=== PATIENT | female | born 1960 | race Caucasian/White ===

== ENCOUNTER 2017-06-17 22:49 | Observation (INO) ==
[2017-06-18] MEDS ORDERED: Ipratropium/Albuterol Neb 3 ML IH ONE ×2 (00:51→01:24)
[2017-06-18 01:08] LABS: Basophils % 0.5 %; Eosinophils # 0.2 K/mcL (0.0-0.6); Eosinophils % 3.3 %; Hematocrit 36.1 % (35.3-44.9); Hemoglobin 12.2 g/dL (11.5-15.4); Immature Granulocytes % 0.2 % (0-4); Lymphocytes # 1.4 K/mcL (0.6-4.6); Lymphocytes % 25.7 %; Mean Corpuscular HGB Conc 33.8 g/dL (31.6-35.5); Mean Corpuscular Hemoglobin 30.4 pg (28.0-33.3); Mean Platelet Volume 10.5 fL (9.4-12.4); Monocytes # 0.5 K/mcL (0.0-1.3); Monocytes % 8.2 %; Neutrophils # 3.4 K/mcL (1.6-8.9); Platelet Count 197 K/mcL (140-400); Red Blood Count 4.01 M/mcL (3.82-4.97); Segmented Neutrophils % 62.1 %
[2017-06-18 01:22] LABS: BUN/Creatinine Ratio 8 (6-26); Blood Urea Nitrogen 6 mg/dL (6-20); Calcium 8.8 mg/dL (8.6-10.3); Carbon Dioxide 25 mEq/L (23-29); Chloride 106 mEq/L (98-107); Glucose 133 mg/dL (70-105); Osmolality,Calculated 286 (280-300); Potassium 3.3 mEq/L (3.5-5.1); Sodium 138 mEq/L (136-145); eGFR For African Americans > 60 (> 60); eGFR For Non-African Americans > 60 (> 60)
[2017-06-18] MEDS ORDERED: methylPREDNISolone 125 MG/2 ML VIAL IVP ONE (01:24)
[2017-06-18] MEDS ORDERED: Aspirin 81 MG TAB.CHEW PO STA (01:24)
--- NOTE | 2017-06-18 01:38 | Emergency Department Note ---
Disposition Clinical Impression: Cough, Acute exacerbation of chronic obstructive airways disease, Bronchitis Disposition: Admitted As Inpatient Condition: Fair Instructions: Chronic Obstructive Pulmonary Disease (ED) Reasons to Return/Additional Instructions: Please follow up with your primary care provider at the next available appointment. I have provided information to the [facility]. Please return to the emergency department if you have any worsening of your symptoms including worsening of her cough, shortness of breath, difficulty breathing, changes in mentation, fever or any other symptoms that may be concerning to you. Please take all medications as prescribed Prescriptions: Albuterol Sulfate [Albuterol Inhaler] 1 puff IH Q4HR PRN #1 inhaler PRN Reason: Shortness Of Breath Doxycycline 100 mg PO BID #14 capsule PredniSONE [Deltasone] 60 mg PO DAILY #15 tablet Referrals: Westley Ayers MD [Primary Care Provider] - [facility] [Outside] Forms: ED Satisfaction Letter Time of Disposition: 03:03 General Adult HPI - General Chief complaint: ED Upper Respiratory Infection Stated complaint: "COPD/Bronchitis" Time Seen by Provider: 06/18/17 00:59 Source: patient Limitations: no limitations Nursing Notes Reviewed: Yes Vital Signs Reviewed: Yes - History of Present Illness HPI Narrative: Patient is a 57-year-old female that presents to the emergency department for cough and shortness of breath. She states that this is been ongoing for the past 3 weeks. Patient denies any nausea, vomiting or diarrhea. Patient states that she has had chronic chest pressure for years and that it is nonradiating and is not acute. She states that she has a history of COPD and follows with Dr. Carias the scrub technician here at [facility]. She states that she has appointment with Dr. Carias at the end of the month. Patient states that her shortness of breath is worse with exertion. Nothing seems to make her symptoms any better. Pain Scale: 10 - Related Data Home Medications Medication Instructions Recorded Confirmed Albuterol Sulfate [Albuterol 2 puff IH Q4HR PRN 03/09/15 04/03/16 Inhaler] Budesonide/Formoterol 160/4.5 2 puff IH BID 03/09/15 04/03/16 [Symbicort] Cholecalciferol (Vitamin D3) 400 unit PO DAILY 03/09/15 04/03/16 [Vitamin D3] Gabapentin [Neurontin] 600 mg PO BID 03/09/15 04/03/16 Levothyroxine [Synthroid] 75 mcg PO QAM 03/09/15 04/03/16 Roflumilast [Daliresp] 500 mcg PO DAILY 03/09/15 04/03/16 Sertraline [Zoloft] 200 mg PO QAM 03/09/15 04/03/16 ARIPiprazole [Abilify] 10 mg PO DAILY 03/13/15 04/03/16 Fluticasone Propionate Nasal 50 mcg NS DAILY 03/13/15 04/03/16 [Flonase] [place] Oil/[place]-3 Fatty Acids 1,000 mg PO DAILY 03/13/15 04/03/16 [Fish Oil 500 mg Softgel] Tizanidine [Zanaflex] 4 mg PO Q8H 03/13/15 04/03/16 clonazePAM [Klonopin] 2 mg PO BID #0 03/14/15 04/03/16 Loratadine [Allergy Relief] 10 mg PO DAILY 10/03/15 04/03/16 Quetiapine Fumarate [Seroquel] 300 mg PO HS 10/03/15 04/03/16 Umeclidinium [place] [Incruse 1 puff IH DAILY 04/03/16 04/03/16 Ellipta] Previous Rx's Medication Instructions Recorded Ipratropium/Albuterol Neb [Duoneb] 3 ml IH [id number] PRN #60 inhsol 04/10/16 Omeprazole [PriLOSEC] 20 mg PO DAILY@0630 #30 capsule. 04/10/16 Ibuprofen [Motrin] 600 mg PO Q6-8H PRN #30 tab 06/19/16 levoFLOXacin [Levaquin] 500 mg PO DAILY #10 tablet 01/20/17 predniSONE [PredniSONE] 0 mg PO DAILY #15 tablet 01/20/17 Amoxicillin 875 mg PO BID #28 tablet 02/05/17 Montelukast [Singulair] 10 mg PO HS #30 tablet 02/05/17 predniSONE [PredniSONE] 0 mg PO DAILY #15 tablet 02/05/17 Albuterol Sulfate [Albuterol 1 puff IH Q4HR PRN #1 inhaler 06/18/17 Inhaler] Doxycycline 100 mg PO BID #14 capsule 06/18/17 PredniSONE [Deltasone] 60 mg PO DAILY #15 tablet 06/18/17 Allergies Allergy/AdvReac Type Severity Reaction Status Date / Time sulfamethoxazole Allergy Hives Verified 06/17/17 22:58 [From Bactrim] trimethoprim [From Bactrim] Allergy Hives Verified 06/17/17 22:58 All systems ED: reviewed and negative except as stated. Cardiovascular: Reports: chest pain (Pressure), dyspnea on exertion Respiratory: Reports: cough, dyspnea Past Medical History - Past Medical History Medical history: Reports: COPD, thyroid disease Surgical history: Reports: non-contributory, other Psychiatric history: Reports: anxiety, depression, PTSD LABEL FOLDER history: Reports: no LABEL FOLDER history - Social History Smoking Status: Current every day smoker Smokeless Tobacco Status: No Alcohol use: Reports: none Drug use: Reports: none Physical Exam - General Limitations: no limitations General appearance: alert, in no apparent distress - Head Head exam: atraumatic, normocephalic - Eye Eye exam: Present: normal appearance, EOMI - Neck Neck exam: Present: normal inspection, full ROM, trachea midline - Respiratory Respiratory exam: Present: normal lung sounds bilaterally, other (decreased breath sounds bilterally). Absent: respiratory distress, wheezes - Cardiovascular Cardiovascular exam: Present: regular rate, normal rhythm, normal heart sounds, +S1, +S2 - Abdominal Exam Abdominal exam: Present: soft, Non-Tender, normal bowel sounds - Neurological Exam Neurological exam: Present: alert, oriented X3 - Psychiatric Psychiatric exam: Present: normal affect, normal mood - Skin Skin exam: Present: warm, dry, intact Course Vital Signs Temperature 98.4 F 06/17/17 22:58 Pulse Rate 92 06/17/17 22:58 Respiratory Rate 18 06/17/17 22:58 Blood Pressure 92/54 06/17/17 22:58 O2 Sat by Pulse Oximetry 98 06/17/17 22:58 Temperature 98.4 F 06/17/17 22:58 Pulse Rate 102 06/18/17 03:11 Respiratory Rate 18 06/18/17 03:11 Blood Pressure 118/60 06/18/17 03:11 O2 Sat by Pulse Oximetry 90 06/18/17 03:14 Oxygen Delivery Oxygen Delivery Room Air Medical Decision Making - MDM Narrative Medical decision making narrative: Due to the patient having a history of COPD and having a cough and shortness of breath the patient will have a CBC, BMP, BNP, troponin, chest x-ray, EKG. The patient will be given breathing treatment and a dose of steroids. EKG showed a sinus rhythm. The patient's laboratory testing is unremarkable. Chest x-ray showed no acute cardiopulmonary process. Patient states that she is feeling well and is comfortable with going home. The patient will be given 5 days of steroids and antibiotic for at home. This will be treated as a COPD exacerbation. - Medical Records Medical records reviewed: Yes I reviewed the patient's medical records. - Lab Data Lab results reviewed: Yes I reviewed the patient's lab results. Result diagrams: 06/18/17 00:59 06/18/17 00:59 Lab Results 06/18/17 06/18/17 06/18/17 Range/Units 00:59 00:59 00:59 WBC 5.5 (4.3-11.1) K/mcL RBC 4.01 (3.82-4.97) M/mcL Hgb 12.2 (11.5-15.4) g/dL Hct 36.1 (35.3-44.9) % MCV 90.0 (83.0-100.0) fL MCH 30.4 (28.0-33.3) pg MCHC 33.8 (31.6-35.5) g/dL RDW 12.0 (11.5-14.5) % Plt Count 197 (140-400) K/mcL MPV 10.5 (9.4-12.4) fL Immature Gran % 0.2 (0-4) % Seg Neutrophils % 62.1 % Lymphocytes % 25.7 % Monocytes % 8.2 % Eosinophils % 3.3 % Basophils % 0.5 % Neutrophils # 3.4 (1.6-8.9) K/mcL Lymphocytes # 1.4 (0.6-4.6) K/mcL Monocytes # 0.5 (0.0-1.3) K/mcL Eosinophils # 0.2 (0.0-0.6) K/mcL Basophils # 0.0 (0.0-0.2) K/mcL Sodium 138 (136-145) mEq/L Potassium 3.3 L (3.5-5.1) mEq/L Chloride 106 (98-107) mEq/L Carbon Dioxide 25 (23-29) mEq/L BUN 6 (6-20) mg/dL Creatinine 0.72 (0.60-1.20) mg/dL Est GFR ( Amer) > 60 (> 60) Est GFR (Non-Af Amer) > 60 (> 60) BUN/Creatinine Ratio 8 (6-26) Glucose 133 H (70-105) mg/dL Calculated Osmolality 286 (280-300) Calcium 8.8 (8.6-10.3) mg/dL Troponin I < 0.03 (< 0.04) ng/mL B-Natriuretic Peptide (Less than 100) pg/mL 06/18/17 Range/Units 00:59 WBC (4.3-11.1) K/mcL RBC (3.82-4.97) M/mcL Hgb (11.5-15.4) g/dL Hct (35.3-44.9) % MCV (83.0-100.0) fL MCH (28.0-33.3) pg MCHC (31.6-35.5) g/dL RDW (11.5-14.5) % Plt Count (140-400) K/mcL MPV (9.4-12.4) fL Immature Gran % (0-4) % Seg Neutrophils % % Lymphocytes % % Monocytes % % Eosinophils % % Basophils % % Neutrophils # (1.6-8.9) K/mcL Lymphocytes # (0.6-4.6) K/mcL Monocytes # (0.0-1.3) K/mcL Eosinophils # (0.0-0.6) K/mcL Basophils # (0.0-0.2) K/mcL Sodium (136-145) mEq/L Potassium (3.5-5.1) mEq/L Chloride (98-107) mEq/L Carbon Dioxide (23-29) mEq/L BUN (6-20) mg/dL Creatinine (0.60-1.20) mg/dL Est GFR ( Amer) (> 60) Est GFR (Non-Af Amer) (> 60) BUN/Creatinine Ratio (6-26) Glucose (70-105) mg/dL Calculated Osmolality (280-300) Calcium (8.6-10.3) mg/dL Troponin I (< 0.04) ng/mL B-Natriuretic Peptide 8 (Less than 100) pg/mL - Radiology Data Radiology results reviewed: Yes I reviewed the patient's radiology results. Chest X-Ray 06/17/17 23:00 IMPRESSION: 1. No acute cardiopulmonary abnormality. 2. Emphysema with findings of chronic obstructive physiology. D/ / Berto Chu / Berto Chu Interpreting Provider: Berto Chu - EKG Data EKG #1 EKG attestation: Yes I reviewed and interpreted this EKG. EKG results narrative: EKG shows sinus rhythm at a rate of 87 bpm, MT interval of 122, QRS is 11, QTc of 392 with a normal axis. Attestation Statement - Attestation Attestation: I, Brayan Fernandez DO, examined this patient [id number] and my medical decision-making was reviewed with Dr. Fredy Suresh, Resident Physician. I agree with the documented findings, disposition and treatment plan as described except to the extent set forth below. Please see my progress notes for details. 57-year-old female presents to emergency room complaint of cough and congestion. She has a history of COPD but does not require oxygen or breathing treatments at home. Patient typically manages with steroids intermittently as well as an inhaler. Patient says that she has had a cough for the last several days. Currently denying chest pain shortness of breath headache vision changes nausea vomiting or diarrhea. Denies any fevers or chills. Patient denies any trauma or injury. Patient has what she describes as a productive cough and sore throat. Physical exam is otherwise unremarkable. Head is atraumatic oral mucosa is patent trachea is midline there is no stridor no trismus. She has no cervical lymphadenopathy. She moves her neck with full range of motion without deficit issue. Lungs are tight on presentation but no wheezing. No consolidation noted. No crackles. Heart is regular abdomen is soft nontender nondistended with no guarding or rigidity. No peritoneal exams. Patient moves all portions Deficit. She is not showing any acute signs or conversational dyspnea. Her pulse ox is been stable on oxygen on presentation but after breathing treatments her pulse ox was 94-98% range. She is talking in full sentences without any issue. Patient was provided with steroids here. Chest x-ray is unremarkable for infection or pneumonia. Labs including CBC chemistry and troponin are stable. Patient has no acute signs of myocardial infarction or ischemia. Discussion was had with the patient at the bedside reviewing the presentation symptoms and her concern for her medical care. She understands this and appreciates her concerning this time. She is in fact requesting to go home. There is benefits and alternatives to this were discussed at length. She had decision-making process was utilized and after the lengthy discussion patient still continued and elected to be discharged home. Maximization of the patient's medical care will be completed. Patient attempted to ambulate around the emergency room at short of breath and her heart rate 1 out. Patient was short of breath at that time. Her symptoms appear to be consistent with a COPD exacerbation. Clinically she does not have any acute signs of infectious etiology. She has nonproductive intermittent cough with no discoloration to the mucus at this time. Her lungs are otherwise stable on chest x-ray. Escutcheon was had again at the bedside and the patient elected to be admitted to the hospital for further evaluation. Patient will be admitted at this time for COPD exacerbation symptomatic control. Patient is low risk on presentation for pulmonary emboli. Her wells score is only one secondary to the tachycardia. Patient will be admitted at this time for definitive management. Detailed documentation of his physical exam, medical intervention, medical decision-making and disposition will be documented resident physician's note. Hospitalist paged at this time for Admission. 0500 Patient admitted to the hospital suicide without any issue. Stabilization of her condition will be completed at this time.
[2017-06-18] MEDS ORDERED: Naloxone 0.4 MG/ML INJ IVP PRN (08:33)
[2017-06-18] MEDS ORDERED: Mag Hydrox/Al Hydrox/Simeth 30 ML UDC PO PRN (08:33)
[2017-06-18] MEDS ORDERED: Acetaminophen 325 MG TABLET PO PRN (08:33)
[2017-06-18] MEDS ORDERED: Ipratropium/Albuterol Neb 3 ML IH PRN (08:40)
[2017-06-18] MEDS ORDERED: Cholecalciferol (D-3) 1,000 UNIT TABLET PO SCH (09:00)
[2017-06-18] MEDS ORDERED: Gabapentin 300 MG CAPSULE PO SCH (09:00)
[2017-06-18] MEDS ORDERED: clonazePAM 1 MG TABLET PO SCH (09:00)
[2017-06-18] MEDS ORDERED: Loratadine 10 MG TABLET PO SCH (09:00)
[2017-06-18] MEDS ORDERED: (Roflumilast [Daliresp] 500 MCG) PO SCH (09:00)
[2017-06-18] MEDS ORDERED: ARIPiprazole 10 MG TABLET PO SCH (09:00)
[2017-06-18 12:03] VITALS: BP 105/61
--- NOTE | 2017-06-18 12:19 | Electrocardiograph Report ---
[place] [id number] Test Date: 2017-06-18 Pat Name: Sharda Ayala Department: 104 Room: [facility] Gender: F [employer] [address] [employer] Security: SUSY : 1960 Requested By: Brayan Fernandez Order Number: [id number] Reading MD: Peter Choi DO Measurements Intervals [place] Rate: 87 P: 55 IL: 122 QRS: 32 QRSD: 101 T: 65 QT: 347 QTc: 392 Interpretive Statements SINUS RHYTHM Electronically Signed On 06-18-2017 12:17:28 EST by Peter Choi DO
--- NOTE | 2017-06-18 14:20 | Internal Med History&Physical ---
Date of Encounter: 06/18/17 Time of Encounter: 09:00 Assessment and Plan (1) Acute exacerbation of chronic obstructive airways disease Current visit: Yes Status: Acute Patient has already been given IV Solu-Medrol last night with improvement of her symptoms. I will continue to observe her on the floor on telemetry maintaining a pulse ox of greater than 92% she does have home oxygen and my aim is to bring her down to the 2 L of requirement. When she does go home she will benefit from a short course of oral prednisone. Right now I do not feel the need to start her on oral antibiotics. (2) Tobacco abuse Current visit: Yes Status: Chronic Smoking cessation has been advised and education provided Internal Medicine - H&P: HPI Chief complaint: Shortness of breath Admitted From: Home Plans for Post Hospital Care: Home History of present illness: Ms. Ayala is a 57 year old female who given to the hospital with government shortness of breath which has been ongoing for the last 2 weeks but has been particularly worrisome for the last couple of days. She denies any fever or chills and does see commercial sales representative here at [facility]. She is usually on home oxygen at 2 L. In the ER the patient did receive IV Solu-Medrol in addition to breathing treatments and did feel slightly better. She did however feel that an attempted ambulation she would feel more pointed than usual and hence was kept for observation. She denies any fever or chills, shakes, sick contacts, nausea, vomiting Past Med Surg Social Fam HX - Past Medical History Medical history: COPD, osteoporosis, thyroid disease Psychiatric history: anxiety, depression, PTSD - Past Surgical History Surgical History: non-contributory, other - Social History Smoking Status: Current every day smoker Packs per day: 0.5 Smokeless Tobacco Status: No Alcohol use: none Drug use: none - Family History Mother Adopted: No Family Member Ethnicity: Non- Living Status: Still Living Hx Family Cardiac Disorders: Yes (HTN, CAD,PCI) Hx Family Respiratory Disorders: No Hx Family Cancer: No Hx Family GI Disorders: No Hx Family Endocrine Disorder: No Hx Family Neuromuscular Disorders: No Hx Family Neurologic Disorders: No Hx Family HEENT Disorders: Yes (Cataracts) Hx Family Autoimmune Disorders: No Internal Medicine - H&P: Meds Albuterol Sulfate [Albuterol Inhaler] 2 puff IH Q4HR PRN 03/09/15 [History] Budesonide/Formoterol 160/4.5 [Symbicort] 2 puff IH BID 03/09/15 [History] Cholecalciferol (Vitamin D3) [Vitamin D3] 400 unit PO DAILY 03/09/15 [History] Gabapentin [Neurontin] 600 mg PO BID 03/09/15 [History] Levothyroxine [Synthroid] 88 mcg PO QAM 03/09/15 [History] Roflumilast [Daliresp] 500 mcg PO DAILY 03/09/15 [History] Sertraline [Zoloft] 200 mg PO QAM 03/09/15 [History] ARIPiprazole [Abilify] 10 mg PO DAILY 03/13/15 [History] Fluticasone Propionate Nasal [Flonase] 50 mcg NS DAILY 03/13/15 [History] Tizanidine [Zanaflex] 4 mg PO Q8H 03/13/15 [History] clonazePAM [Klonopin] 2 mg PO TID #0 03/14/15 [History] Loratadine [Allergy Relief] 10 mg PO DAILY 10/03/15 [History] Quetiapine Fumarate [Seroquel] 300 mg PO HS 10/03/15 [History] Umeclidinium [place] [Incruse Ellipta] 1 puff IH DAILY 04/03/16 [History] Ipratropium/Albuterol Neb [Duoneb] 3 ml IH [id number] PRN #60 inhsol 04/10/16 [Rx] Montelukast [Singulair] 10 mg PO HS #30 tablet 02/05/17 [Rx] Calcium Carbonate/Vitamin D3 [Calcium 600-Vit D3 400 Tablet] 2 tab PO DAILY 03/26 [History] 3 Allergy/AdvReac Type Severity Reaction Status Date / Time sulfamethoxazole Allergy Hives Verified 06/17/17 22:58 [From Bactrim] trimethoprim [From Bactrim] Allergy Hives Verified 06/17/17 22:58 All Systems PM: A 10-system review of systems was performed and is negative for pertinent findings except as documented above in the HPI. Review of systems: A complete review of systems is checked and is negative except as mentioned in the HPI - Constitutional Vitals: Temp Pulse Resp BP Pulse Ox 97.9 F 73 22 105/61 97 06/18/17 12:02 06/18/17 12:02 06/18/17 12:02 06/18/17 12:02 06/18/17 12:02 - Head Head exam: Present: atraumatic, normocephalic - Neck Neck exam general surgery: Present: supple, trachea midline. Absent: lymphadenopathy - Respiratory Additional comments: Scattered wheezing heard across both lung clement no accessory muscles of respiration being used at this time. Able to complete. Sentences - Cardiovascular Cardiovascular exam: Present: RRR, +S1, +S2. Absent: diastolic murmur, gallop, rubs, systolic murmur - GI/Abdominal GI/Abdominal exam: Present: normal bowel sounds, soft, no peritoneal signs. Absent: distended, tenderness - Neurological Exam Neurological exam: Present: CN II-XII intact, oriented X3, no focal deficits. Absent: pronater drift, facial droop, speech deficit Internal Med - H&P Results - Labs CBC & Chem 7: 06/18/17 00:59 06/18/17 00:59 - Diagnostic Studies Chest x-ray Status: image reviewed by me (No focal consolidation)
--- NOTE | 2017-06-18 15:02 | Discharge Summary ---
Date of Encounter: 06/18/17 Time of Encounter: 14:55 - Discharge Diagnosis (1) Acute exacerbation of chronic obstructive airways disease Priority: Primary Status: Acute (2) Tobacco abuse Priority: Secondary Status: Chronic - Discharge Medications Prescriptions: predniSONE [Prednisone] 50 mg PO DAILY #5 tablet Home Medications: Albuterol Sulfate [Albuterol Inhaler] 2 puff IH Q4HR PRN 03/09/15 [History] Budesonide/Formoterol 160/4.5 [Symbicort] 2 puff IH BID 03/09/15 [History] Cholecalciferol (Vitamin D3) [Vitamin D3] 400 unit PO DAILY 03/09/15 [History] Gabapentin [Neurontin] 600 mg PO BID 03/09/15 [History] Levothyroxine [Synthroid] 88 mcg PO QAM 03/09/15 [History] Roflumilast [Daliresp] 500 mcg PO DAILY 03/09/15 [History] Sertraline [Zoloft] 200 mg PO QAM 03/09/15 [History] ARIPiprazole [Abilify] 10 mg PO DAILY 03/13/15 [History] Fluticasone Propionate Nasal [Flonase] 50 mcg NS DAILY 03/13/15 [History] Tizanidine [Zanaflex] 4 mg PO Q8H 03/13/15 [History] clonazePAM [Klonopin] 2 mg PO TID #0 03/14/15 [History] Loratadine [Allergy Relief] 10 mg PO DAILY 10/03/15 [History] Quetiapine Fumarate [Seroquel] 300 mg PO HS 10/03/15 [History] Umeclidinium [place] [Incruse Ellipta] 1 puff IH DAILY 04/03/16 [History] Ipratropium/Albuterol Neb [Duoneb] 3 ml IH [id number] PRN #60 inhsol 04/10/16 [Rx] Montelukast [Singulair] 10 mg PO HS #30 tablet 02/05/17 [Rx] Calcium Carbonate/Vitamin D3 [Calcium 600-Vit D3 400 Tablet] 2 tab PO DAILY 03/26 [History] Docusate [Colace] 100 mg PO BID PRN capsule 06/18/17 [Rx] Ipratropium/Albuterol Neb [Duoneb] 3 ml IH [id number] PRN inhsol 06/18/17 [Rx] Loratadine [Claritin] 10 mg PO DAILY tablet 06/18/17 [Rx] Mag Hydrox/Al Hydrox/Simeth [Maalox] 15 ml PO Q6HR PRN udc 06/18/17 [Rx] predniSONE [Prednisone] 50 mg PO DAILY #5 tablet 06/18/17 [Rx] Allergies/Adverse Reactions: 3 Allergy/AdvReac Type Severity Reaction Status Date / Time sulfamethoxazole Allergy Hives Verified 06/17/17 22:58 [From Bactrim] trimethoprim [From Bactrim] Allergy Hives Verified 06/17/17 22:58 Date of admission: 06/18/17 05:28 Primary care physician: Westley Ayers MD - Patient Status Disposition: Home, Self-Care Condition: Good Functional capacity at discharge: independent ambulation Overall status at discharge: patient is back to baseline - Discharge Instructions - Diet and Activity Activity: wear oxygen at all times Diet: regular diet Interval History: Patient was placed in obs status in ED. She was gradually able to wean to 2 L NC maintaining good saturations . She wishes to go home due to social issues and i am comfortable with that. She will be provided a script for short course of steroids and has an appointment coming up w Dr Farfan. She has Home O2 already and I have instructed her to wear it at all times for next several days Hospital course: Ms. Ayala is a 57 year old female Time spent discussing smoking cessation with patient: more than 10 minutes - Time Spent with Patient Total time spent providing and/or coordinating discharge services: Greater than 30 minutes (40 min) - Constitutional Vitals: Temp Pulse Resp BP Pulse Ox 97.9 F 73 22 105/61 97 06/18/17 12:02 06/18/17 12:02 06/18/17 12:02 06/18/17 12:02 06/18/17 12:02 Exam: Mild wheezing bilaterally Does not appear uncomfortable- able to complete sentences Abdomen- S NT ND Neuro- non focal VSS
[2017-06-18] MEDS ORDERED: clonazePAM 0.5 MG TABLET PO SCH (15:45)
== END 2017-06-18 16:30 | disposition home or self-care (01) ==
LOC: 3BNU 22:49 → EMEROO 22:49 → SUATTDRO 06-18 05:28 → 3BNU 06-18 06:37
PROVIDERS: ADMIT Internal Medicine; ATTEND Internal Medicine

== ENCOUNTER 2018-06-10 10:32 | Inpatient (IN) ==
[2018-06-10] MEDS ORDERED: 0.9 % Sodium Chloride 1,000 ML IVC ONE ×2 (10:38→13:06)
[2018-06-10] MEDS ORDERED: Ipratropium/Albuterol Neb 3 ML IH ONE ×2 (10:39→14:01)
[2018-06-10] MEDS ORDERED: methylPREDNISolone 125 MG/2 ML VIAL IVP ONE (10:39)
--- NOTE | 2018-06-10 11:14 | Emergency Department Note ---
Disposition Clinical Impression: Acute exacerbation of chronic obstructive airways disease Pneumonia Qualifiers: Pneumonia type: due to unspecified organism Laterality: bilateral Lung location: lower lobe of lung Qualified Code(s): J18.1 - Lobar pneumonia, unspecified organism Disposition: Admitted As Inpatient General Adult HPI - General Chief complaint: ED Shortness of Breath/Dyspnea Stated complaint: MUKESH Time Seen by Provider: 06/10/18 10:33 Source: patient, EMS Limitations: no limitations Nursing Notes Reviewed: Yes Vital Signs Reviewed: Yes - History of Present Illness HPI Narrative: 58-year-old female with history of COPD presenting with productive cough as well as increased shortness of breath. She states this has been ongoing for the past 2 days. She utilizes 2 L of oxygen at home just at night but has increased this recently to 3 L. She otherwise states that she tries to get up and move around and feels very short of breath. She denies any chest pain. She is not currently on any antibiotics. She otherwise denies any nausea, vomiting, diarrhea, dysuria, hematuria, abdominal pain, back pain. Pain Scale: 8 - Related Data Home Medications Medication Instructions Recorded Confirmed Roflumilast [Daliresp] 500 mcg PO DAILY 03/09/15 06/10/18 clonazePAM [Klonopin] 2 mg PO TID #0 03/14/15 06/10/18 Umeclidinium [place] [Incruse 1 puff IH DAILY 04/03/16 06/10/18 Ellipta] Calcium Carbonate/Vitamin D3 2 tab PO DAILY 06/18/17 06/10/18 [Calcium 600-Vit D3 400 Tablet] Albuterol Sulfate [Albuterol 2 puff IH Q6HR PRN 06/10/18 06/10/18 Inhaler] Alendronate Sodium 70 mg PO MO 06/10/18 06/10/18 Aripiprazole [Abilify] 15 mg PO DAILY 06/10/18 06/10/18 Atorvastatin [Lipitor] 10 mg PO HS 06/10/18 06/10/18 Benztropine Mesylate 1 mg PO BID 06/10/18 06/10/18 Budesonide/Formoterol 160/4.5 2 puff IH BID 06/10/18 06/10/18 [Symbicort 160/4.5] Calcium Carbonate/Vitamin D3 2 tab PO DAILY 06/10/18 06/10/18 [Calcium 600 + Vit D Tablet] Ergocalciferol (VITAMIN D2) 400 unit PO DAILY 06/10/18 06/10/18 [Vitamin D] Gabapentin [Neurontin] 600 mg PO BID 06/10/18 06/10/18 Levothyroxine Sodium 88 mcg PO QAM 06/10/18 06/10/18 Mv-Mn/FA/Vit K/Lycop/Lut/Coq10 1 cap PO DAILY 06/10/18 06/10/18 [Daily Multivitamin Capsule] Previous Rx's Medication Instructions Recorded Ipratropium/Albuterol Neb [Duoneb] 3 ml IH [id number] PRN #60 inhsol 04/10/16 Docusate [Colace] 100 mg PO BID PRN capsule 06/18/17 Allergies Allergy/AdvReac Type Severity Reaction Status Date / Time sulfamethoxazole Allergy Hives Verified 06/10/18 10:37 [From Bactrim] trimethoprim [From Bactrim] Allergy Hives Verified 06/10/18 10:37 All systems ED: reviewed and negative except as stated. Review of Systems: As Per HPI Constitutional: Reports: weakness. Denies: fever, chills, weight change Eyes: Denies: eye pain, vision change Cardiovascular: Reports: dyspnea on exertion. Denies: chest pain, palpitations, orthopnea, edema, syncope Respiratory: Reports: cough, dyspnea, sputum production. Denies: wheezes, hemoptysis, stridor Gastrointestinal: Denies: abdominal pain, nausea, vomiting, diarrhea, constipation, hematemesis Genitourinary: Denies: urgency, dysuria Musculoskeletal: Denies: back pain, neck pain Integumentary: Denies: rash, abrasion Neurological: Reports: weakness. Denies: headache, numbness, paresthesias, confusion, abnormal gait Psychiatric: Denies: anxiety, depression Endocrine: Denies: fatigue Past Medical History - Past Medical History Attestation: Yes The following information was validated with the patient. Source: patient Medical history: Reports: COPD, thyroid disease Surgical history: Reports: other Psychiatric history: Reports: anxiety, depression, PTSD PATIENT ASSISTANT history: Reports: no PATIENT ASSISTANT history - Social History Smoking Status: Current every day smoker Smokeless Tobacco Status: No Alcohol use: Reports: none Drug use: Reports: none Physical Exam - General Limitations: no limitations General appearance: alert, in distress (tachypnic, speaks in very short sentences) - Head Head exam: atraumatic, normocephalic - Eye Eye exam: Present: normal appearance, PERRL, EOMI - ENT ENT exam: normal exam, normal oropharynx, mucous membranes moist - Neck Neck exam: Present: normal inspection, full ROM, trachea midline. Absent: tenderness - Chest Chest inspection: Present: normal inspection, symmetric chest wall rise. Absent: tenderness - Respiratory Respiratory exam: Present: respiratory distress (tachypnic), wheezes (throughout), accessory muscle use, prolonged expiratory phase. Absent: stridor - Cardiovascular Cardiovascular exam: Present: regular rate, normal rhythm, normal heart sounds - Abdominal Exam Abdominal exam: Present: soft, Non-Tender. Absent: guarding, rebound, rigidity - Extremities Exam Extremities exam: Present: normal inspection. Absent: pedal edema - Neurological Exam Neurological exam: Present: alert, oriented X3 - Psychiatric Psychiatric exam: Present: normal affect, normal mood - Skin Skin exam: Present: warm, dry, intact. Absent: cyanosis, diaphoresis, pallor Course Vital Signs Temperature 100.0 F H 06/10/18 10:38 Pulse Rate 111 06/10/18 10:38 Respiratory Rate 36 06/10/18 10:38 Blood Pressure 112/61 06/10/18 10:38 O2 Sat by Pulse Oximetry 90 06/10/18 10:38 Temperature 97.4 F L 06/10/18 19:18 Pulse Rate 76 06/10/18 19:18 Respiratory Rate 16 06/10/18 20:01 Blood Pressure 81/50 06/10/18 19:18 O2 Sat by Pulse Oximetry 95 06/10/18 20:01 Oxygen Delivery Oxygen Delivery Bipap Medical Decision Making - [facility] Narrative Medical decision making narrative: 58-year-old female with history of COPD presenting with hypoxia and tachypnea. She is very tachypneic on exam and requiring supplemental oxygenation above her baseline. Here in the emergency department she continued to have increased work of breathing and only slight improvement after 3 DuoNeb's. Due to her tachypnea did eventually require BiPAP with significant improvement. Chest x-ray did not convincing for pneumonia and given her continued hypoxia and tachycardia did obtain CTA to evaluate for pulmonary embolism. CTA negative for pulmonary embolism but did show evidence of bilateral pneumonia, likely atypical. Initiated the patient on Decadron as well as Rocephin and azithromycin. Discussed case with on-call hospitalist who agrees with plan for admission. Patient agrees with and understands course of treatment plan including plan for admission. All questions answered. - Medical Records Medical records reviewed: Yes I reviewed the patient's medical records. - Lab Data Lab results reviewed: Yes I reviewed the patient's lab results. Result diagrams: 06/10/18 10:39 06/10/18 10:39 Lab Results 06/10/18 06/10/18 06/10/18 Range/Units 10:39 10:39 10:39 WBC 9.1 (4.3-11.1) K/mcL RBC 4.17 (3.82-4.97) M/mcL Hgb 12.3 (11.5-15.4) g/dL Hct 36.1 (35.3-44.9) % MCV 86.6 (83.0-100.0) fL MCH 29.5 (28.0-33.3) pg MCHC 34.1 (31.6-35.5) g/dL RDW 12.7 (11.5-14.5) % Plt Count 162 (140-400) K/mcL MPV 9.7 (9.4-12.4) fL Immature Gran % 1.1 (0-4) % Seg Neutrophils % 88.4 % Lymphocytes % 3.6 % Monocytes % 6.6 % Eosinophils % 0.2 % Basophils % 0.1 % Neutrophils # 8.0 (1.6-8.9) K/mcL Lymphocytes # 0.3 L (0.6-4.6) K/mcL Monocytes # 0.6 (0.0-1.3) K/mcL Eosinophils # 0.0 (0.0-0.6) K/mcL Basophils # 0.0 (0.0-0.2) K/mcL PT 12.2 H (9.4-12.1) Seconds INR 1.1 APTT 33.6 (26.0-36.0) Seconds Sodium 132 L (136-145) mEq/L Potassium 3.9 (3.5-5.1) mEq/L Chloride 97 L (98-107) mEq/L Carbon Dioxide 28 (23-29) mEq/L BUN 8 (6-20) mg/dL Creatinine 0.61 (0.60-1.20) mg/dL Est GFR ( Amer) > 60 (> 60) Est GFR (Non-Af Amer) > 60 (> 60) BUN/Creatinine Ratio 13 (6-26) Glucose 125 H (70-105) mg/dL Calculated Osmolality 274 L (280-300) Lactic Acid (0.5-2.2) mmol/L Calcium 8.6 (8.6-10.3) mg/dL Total Bilirubin 1.2 H (0.3-1.0) mg/dL Direct Bilirubin 0.3 H (0.0-0.2) mg/dL Indirect Bilirubin 0.9 (0.0-1.2) mg/dL AST 13 (13-39) Units/L ALT 13 (7-52) Units/L Alkaline Phosphatase 83 (34-104) Units/L Troponin I < 0.03 (< 0.04) ng/mL B-Natriuretic Peptide (Less than 100) pg/mL Serum Total Protein 6.5 (6.4-8.9) g/dL Albumin 3.7 (3.5-5.7) g/dL Globulin 2.8 (2.4-3.5) g/dL Albumin/Globulin Ratio 1.3 (1.1-2.2) 06/10/18 06/10/18 Range/Units 11:01 11:01 WBC (4.3-11.1) K/mcL RBC (3.82-4.97) M/mcL Hgb (11.5-15.4) g/dL Hct (35.3-44.9) % MCV (83.0-100.0) fL MCH (28.0-33.3) pg MCHC (31.6-35.5) g/dL RDW (11.5-14.5) % Plt Count (140-400) K/mcL MPV (9.4-12.4) fL Immature Gran % (0-4) % Seg Neutrophils % % Lymphocytes % % Monocytes % % Eosinophils % % Basophils % % Neutrophils # (1.6-8.9) K/mcL Lymphocytes # (0.6-4.6) K/mcL Monocytes # (0.0-1.3) K/mcL Eosinophils # (0.0-0.6) K/mcL Basophils # (0.0-0.2) K/mcL PT (9.4-12.1) Seconds INR APTT (26.0-36.0) Seconds Sodium (136-145) mEq/L Potassium (3.5-5.1) mEq/L Chloride (98-107) mEq/L Carbon Dioxide (23-29) mEq/L BUN (6-20) mg/dL Creatinine (0.60-1.20) mg/dL Est GFR ( Amer) (> 60) Est GFR (Non-Af Amer) (> 60) BUN/Creatinine Ratio (6-26) Glucose (70-105) mg/dL Calculated Osmolality (280-300) Lactic Acid 0.8 (0.5-2.2) mmol/L Calcium (8.6-10.3) mg/dL Total Bilirubin (0.3-1.0) mg/dL Direct Bilirubin (0.0-0.2) mg/dL Indirect Bilirubin (0.0-1.2) mg/dL AST (13-39) Units/L ALT (7-52) Units/L Alkaline Phosphatase (34-104) Units/L Troponin I (< 0.04) ng/mL B-Natriuretic Peptide 86 (Less than 100) pg/mL Serum Total Protein (6.4-8.9) g/dL Albumin (3.5-5.7) g/dL Globulin (2.4-3.5) g/dL Albumin/Globulin Ratio (1.1-2.2) - Radiology Data Radiology results reviewed: Yes I reviewed the patient's radiology results. Chest X-Ray 06/10/18 10:39 IMPRESSION: 1. Findings are suggestive of COPD. 2. No focal consolidative pneumonia, pneumothorax, or significant pleural effusion. D/ / Amauri Tyler MD / Amauri Tyler MD Interpreting Provider: Amauri Tyler MD Chest CTA 06/10/18 11:56 IMPRESSION: No evidence of pulmonary embolism. Severe centrilobular emphysema and COPD. Lung bases are limited by motion artifact, however, suggestion of multiple tree-in-bud and ground-glass nodules suggesting atypical pneumonia. D/ / 06/10/2018 13:49:41 Emiliano Oliveira MD / tito Interpreting Provider: Emiliano Oliveira MD - EKG Data EKG #1 EKG attestation: Yes I reviewed and interpreted this EKG. EKG results narrative: Sinus tachycardia rate of 109. Normal axis. RI 129, QRS 83, QT 311, QTC 409. No evidence of ST elevation. When compared with prior from 01/21/18 there is some T-wave flattening in V6 otherwise no acute changes. Attestation Statement - Attestation Attestation: I, Santosh Chicas, examined this patient and my medical decision-making was reviewed with the OIL INSPECTOR/PA/Advanced Practice Nurse/Resident Physician. I agree with the documented findings, disposition and treatment plan as described except to the extent set forth below. 58-year-old female presents emergency department with concerns of shortness of breath and difficulty breathing. Patient had an elevated temp in the emergency department. She has concerns of productive cough. CTA showed changes consistent with atypical pneumonia. Patient required BiPAP to support of breathing and she was to And requiring increased oxygen. Patient will be admitted to the hospitalist. The high probability of a clinically significant, sudden or life threatening deterioration of the respiratory system(s) required my full and direct attention, intervention and personal management. The aggregate critical care time was 32 minutes. This time is in addition to time spent performing reported procedures but includes the following: x Data Review and interpretation x Patient assessment and monitoring of vital signs x Documentation x Medication orders and management
[2018-06-10 11:22] LABS: Basophils % 0.1 %; Eosinophils % 0.2 %; Hematocrit 36.1 % (35.3-44.9); Hemoglobin 12.3 g/dL (11.5-15.4); Immature Granulocytes % 1.1 % (0-4); Lymphocytes # 0.3 K/mcL (0.6-4.6); Lymphocytes % 3.6 %; Mean Corpuscular HGB Conc 34.1 g/dL (31.6-35.5); Mean Corpuscular Hemoglobin 29.5 pg (28.0-33.3); Mean Corpuscular Volume 86.6 fL (83.0-100.0); Mean Platelet Volume 9.7 fL (9.4-12.4); Monocytes # 0.6 K/mcL (0.0-1.3); Monocytes % 6.6 %; Platelet Count 162 K/mcL (140-400); Red Blood Count 4.17 M/mcL (3.82-4.97); Red Cell Distribution Width 12.7 % (11.5-14.5); Segmented Neutrophils % 88.4 %
[2018-06-10] MEDS ORDERED: cefTRIAXone 1,000 MG in Water for inj. (sterile) 20 ML 10 ML IVP ONE (11:23)
[2018-06-10] MEDS ORDERED: Azithromycin 250 MG TABLET PO STA (11:23)
[2018-06-10 11:28] LABS: INR 1.1; Prothrombin Time 12.2 Seconds (9.4-12.1)
[2018-06-10 11:31] LABS: Activated Partial Thrombo Time 33.6 Seconds (26.0-36.0)
[2018-06-10] MEDS ORDERED: Azithromycin 500 MG in D5% in Water 250 ML IVPB ONE (11:33)
[2018-06-10 11:37] LABS: Troponin I < 0.03 ng/mL (< 0.04)
[2018-06-10] MEDS ORDERED: Isovue-370 500 ML INFUS..BTL IV ONE (11:56)
[2018-06-10 11:58] LABS: Alanine Aminotransferase 13 Units/L (7-52); Albumin 3.7 g/dL (3.5-5.7); Albumin/Globulin Ratio 1.3 (1.1-2.2); Alkaline Phosphatase 83 Units/L (34-104); Aspartate Amino Transferase 13 Units/L (13-39); BUN/Creatinine Ratio 13 (6-26); Bilirubin,Direct 0.3 mg/dL (0.0-0.2); Bilirubin,Indirect 0.9 mg/dL (0.0-1.2); Bilirubin,Total 1.2 mg/dL (0.3-1.0); Blood Urea Nitrogen 8 mg/dL (6-20); Calcium 8.6 mg/dL (8.6-10.3); Carbon Dioxide 28 mEq/L (23-29); Chloride 97 mEq/L (98-107); Globulin 2.8 g/dL (2.4-3.5); Glucose 125 mg/dL (70-105); Osmolality,Calculated 274 (280-300); Potassium 3.9 mEq/L (3.5-5.1); Sodium 132 mEq/L (136-145); Total Protein 6.5 g/dL (6.4-8.9); eGFR For Non-African Americans > 60 (> 60)
[2018-06-10] MEDS ORDERED: traMADol 50 MG TABLET PO PRN (13:46)
[2018-06-10] MEDS ORDERED: Naloxone 0.4 MG/ML INJ IVP PRN (13:46)
[2018-06-10] MEDS ORDERED: *HR* OxyCODONE Immed Rel 5 MG TABLET PO PRN (13:46)
--- NOTE | 2018-06-10 14:07 | Internal Med History&Physical ---
Date of Encounter: 06/10/18 Time of Encounter: 13:30 Internal Medicine - H&P: HPI Chief complaint: SOB Admitted From: Home History of present illness: Ms. Ayala is a 58 year old female with past medical history of advanced, oxygen- dependent COPD, hypothyroidism, who presented to the ED with 5 day history of shortness of breath. Associated cough with minimal sputum production. Also endorses subjective fevers/chills but no sick contacts. She says that she has had runny nose and sore throat prior to the development of SOB. Denies any chest pain, palpitation, orthopnea, PND, or leg swelling. No nausea/vomiting, abdominal pain, change in bowel habits, dysuria, or urinary frequency. No joint pain or rash. Continues to smoke about half a pack a day unfortunately. In the ED, she had temperature of 100, tachycardic, and tachypneic at 36 requiring BiPaP. Labs were unremarkable with normal white blood cell count and troponin. EKG shows sinus tachycardia. CTA did not demonstrate any evidence of pulmonary embolism but there was concerning findings suggestive of atypical pneumonia. Patient was given IV Solu-Medrol, bronchodilators, Rocephin/azithromycin, and admitted for further management. Past Med Surg Social Fam HX - Past Medical History Attestation: Yes The following information was validated with the patient. Medical history: COPD, thyroid disease Additional medical history: Urinary Stress Incontinence, Chronic Sinusitis, Menopausal symptoms, Eczema Psychiatric history: anxiety, depression, PTSD - Past Surgical History Surgical History: other Additional surgical history: T&A, D&C, left leg janice, ultrasound left breast bx. - Social History Smoking Status: Current every day smoker Smokeless Tobacco Status: No Alcohol use: none Drug use: none - Family History Mother Adopted: No Family Member Ethnicity: Non- Living Status: Still Living Hx Family Cardiac Disorders: Yes (HTN, CAD,PCI) Hx Family Respiratory Disorders: No Hx Family Cancer: No Hx Family GI Disorders: No Hx Family Endocrine Disorder: No Hx Family Neuromuscular Disorders: No Hx Family Neurologic Disorders: No Hx Family HEENT Disorders: Yes (Cataracts) Hx Family Autoimmune Disorders: No Internal Medicine - H&P: Meds Albuterol Sulfate [Albuterol Inhaler] 2 puff IH Q4HR PRN 03/09/15 [History] Budesonide/Formoterol 160/4.5 [Symbicort] 2 puff IH BID 03/09/15 [History] Cholecalciferol (Vitamin D3) [Vitamin D3] 400 unit PO DAILY 03/09/15 [History] Gabapentin [Neurontin] 600 mg PO BID 03/09/15 [History] Levothyroxine [Synthroid] 88 mcg PO QAM 03/09/15 [History] Roflumilast [Daliresp] 500 mcg PO DAILY 03/09/15 [History] Sertraline [Zoloft] 200 mg PO QAM 03/09/15 [History] ARIPiprazole [Abilify] 10 mg PO DAILY 03/13/15 [History] Fluticasone Propionate Nasal [Flonase] 50 mcg NS DAILY 03/13/15 [History] Tizanidine [Zanaflex] 4 mg PO Q8H 03/13/15 [History] clonazePAM [Klonopin] 2 mg PO TID #0 03/14/15 [History] Loratadine [Allergy Relief] 10 mg PO DAILY 10/03/15 [History] Quetiapine Fumarate [Seroquel] 300 mg PO HS 10/03/15 [History] Umeclidinium [place] [Incruse Ellipta] 1 puff IH DAILY 04/03/16 [History] Ipratropium/Albuterol Neb [Duoneb] 3 ml IH [id number] PRN #60 inhsol 04/10/16 [Rx] Montelukast [Singulair] 10 mg PO HS #30 tablet 02/05/17 [Rx] Calcium Carbonate/Vitamin D3 [Calcium 600-Vit D3 400 Tablet] 2 tab PO DAILY 06/18/17 [History] Docusate [Colace] 100 mg PO BID PRN capsule 06/18/17 [Rx] Mag Hydrox/Al Hydrox/Simeth [Maalox] 15 ml PO Q6HR PRN udc 06/18/17 [Rx] Promethazine [Phenergan] 25 mg PO Q8HR PRN #15 tablet 01/21/18 [Rx] Allergy/AdvReac Type Severity Reaction Status Date / Time sulfamethoxazole Allergy Hives Verified 06/10/18 10:37 [From Bactrim] trimethoprim [From Bactrim] Allergy Hives Verified 06/10/18 10:37 All Systems PM: A 10-system review of systems was performed and is negative for pertinent findings except as documented above in the HPI. - Constitutional Vitals: Temp Pulse Resp BP Pulse Ox 100.0 F H 93 24 87/50 98 06/10/18 10:38 06/10/18 13:06 06/10/18 13:06 06/10/18 13:06 06/10/18 13:06 Exam: General: Mild somnolence noted but easily arousable with verbal command, mild distress. HEENT:EOMI, pupils equal, round and reactive. Cardiovascular:Normal S1 & S2, No JVD. Pulse regular. Lungs: clear to auscultation, no wheezes/rales Abdomen:Soft, non-tender, no rigidity. Extremities:No deformity or swelling Neurological:Normal cognition and motor skills. Non-focal Skin:Normal color, no rash, no lesions. Pulses:Carotid and radial pulses normal +2. Rest of the physical exam is non contributory Internal Med - H&P Results - Labs CBC & Chem 7: 06/10/18 10:39 06/10/18 10:39 Labs: Short CBC 06/10/18 Range/Units 10:39 WBC 9.1 (4.3-11.1) K/mcL Hgb 12.3 (11.5-15.4) g/dL Hct 36.1 (35.3-44.9) % Plt Count 162 (140-400) K/mcL Neutrophils # 8.0 (1.6-8.9) K/mcL BMP 06/10/18 10:39 Sodium 132 L Potassium 3.9 Chloride 97 L Carbon Dioxide 28 BUN 8 Creatinine 0.61 Glucose 125 H Calcium 8.6 Cardiac Enzymes 06/10/18 Range/Units 10:39 Troponin I < 0.03 (< 0.04) ng/mL Liver Function 06/10/18 Range/Units 10:39 Total Bilirubin 1.2 H (0.3-1.0) mg/dL Direct Bilirubin 0.3 H (0.0-0.2) mg/dL AST 13 (13-39) Units/L ALT 13 (7-52) Units/L Alkaline Phosphatase 83 (34-104) Units/L Albumin 3.7 (3.5-5.7) g/dL - Impressions ITS Impressions Chest X-Ray 06/10/18 10:39 IMPRESSION: 1. Findings are suggestive of COPD. 2. No focal consolidative pneumonia, pneumothorax, or significant pleural effusion. D/ / Amauri Tyler MD / Amauri Tyler MD Interpreting Provider: Amauri Tyler MD Chest CTA 06/10/18 11:56 IMPRESSION: No evidence of pulmonary embolism. Severe centrilobular emphysema and COPD. Lung bases are limited by motion artifact, however, suggestion of multiple tree-in-bud and ground-glass nodules suggesting atypical pneumonia. D/ / 06/10/2018 13:49:41 Emiliano Oliveira MD / tito Interpreting Provider: Emiliano Oliveira MD - Assessment and plan (1) Acute exacerbation of chronic obstructive airways disease Current Visit: Yes Status: Acute Assessment and plan: Presented with worsening sugars of breath and cough with CT finding suggestive of atypical pneumonia IV Solu-Medrol, bronchodilators, Rocephin/azithromycin Check respiratory viral panel Strep/Legionella antigen When necessary BiPAP Smoking Cessation emphasized (2) Pneumonia Current Visit: Yes Status: Acute Assessment and plan: CT findings suggestive of atypical pneumonia mx as above Qualifiers: Pneumonia type: due to unspecified organism Laterality: bilateral Lung location: lower lobe of lung Qualified Code(s): J18.1 - Lobar pneumonia, unspecified organism (3) Anxiety disorder Current Visit: Yes Status: Chronic Assessment and plan: Resume home meds once reconciled Qualifiers: Anxiety disorder type: unspecified anxiety disorder Qualified Code(s): F41.9 - Anxiety disorder, unspecified (4) Hypothyroidism Current Visit: No Status: Chronic Assessment and plan: Resume home meds once reconciled Qualifiers: Hypothyroidism type: acquired Qualified Code(s): E03.9 - Hypothyroidism, unspecified (5) Tobacco abuse Current Visit: No Status: Chronic Assessment and plan: smoking cessation emphasized NRT (6) DVT prophylaxis Current Visit: Yes Status: Acute Assessment and plan: SQ heparin - Time Spent With Patient Total time spent is greater than 50% in coordination of care (as documented) at patient's floor/unit and/or counseling patient:
[2018-06-10 14:24] LABS: VBG HCO3 27 mEq/L (21-27); VBG PCO2 53 mmHg (41-51); VBG PH 7.31 pH Units (7.32-7.42); VBG PO2 107 mmHg (25-50)
--- NOTE | 2018-06-10 15:27 | Electrocardiograph Report ---
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
[2018-06-10] MEDS: Ipratropium/Albuterol Neb 3 ML IH SCH ×3 (15:53→23:46)
[2018-06-10] MEDS: Nicotine 14 MG PATCH.TD24 TD SCH (16:33)
[2018-06-10] MEDS: *HR* Heparin 5,000 UNIT/ML VIAL SQ SCH (18:08)
[2018-06-10] MEDS: Budesonide/Formoterol 160/4.5 1 PUFF INH IH SCH (19:58)
[2018-06-10] MEDS: Gabapentin 300 MG CAPSULE PO SCH (20:35)
[2018-06-10] MEDS: clonazePAM 1 MG TABLET PO SCH (20:35)
[2018-06-10] MEDS: MethylPREDNISolone 40 MG/ML VIAL IVP SCH (20:35)
[2018-06-11] MEDS: Ipratropium/Albuterol Neb 3 ML IH SCH ×6 (03:33→23:45)
[2018-06-11 04:11] LABS: Hematocrit 31.7 % (35.3-44.9); Immature Granulocytes % 0.8 % (0-4); Lymphocytes # 0.2 K/mcL (0.6-4.6); Lymphocytes % 7.7 %; Mean Corpuscular HGB Conc 33.4 g/dL (31.6-35.5); Mean Corpuscular Hemoglobin 29.4 pg (28.0-33.3); Mean Corpuscular Volume 87.8 fL (83.0-100.0); Mean Platelet Volume 9.8 fL (9.4-12.4); Monocytes % 1.2 %; Platelet Count 114 K/mcL (140-400); Red Blood Count 3.61 M/mcL (3.82-4.97); Red Cell Distribution Width 12.4 % (11.5-14.5); Segmented Neutrophils % 90.3 %
[2018-06-11 04:29] LABS: Hemoglobin 10.6 g/dL (11.5-15.4); Neutrophils # 2.3 K/mcL (1.6-8.9)
[2018-06-11 04:32] LABS: Platelet Estimate Slight Decrease (Normal)
[2018-06-11 04:33] LABS: BUN/Creatinine Ratio 16 (6-26); Blood Urea Nitrogen 8 mg/dL (6-20); Calcium 8.2 mg/dL (8.6-10.3); Carbon Dioxide 27 mEq/L (23-29); Chloride 105 mEq/L (98-107); Glucose 195 mg/dL (70-105); Magnesium 2.4 mg/dL (1.6-2.6); Osmolality,Calculated 284 (280-300); Potassium 3.7 mEq/L (3.5-5.1); Sodium 135 mEq/L (136-145); eGFR For Non-African Americans > 60 (> 60)
[2018-06-11 05:23] LABS: Hematocrit 30.3 % (35.3-44.9); Hemoglobin 10.1 g/dL (11.5-15.4); Immature Granulocytes % 1.2 % (0-4); Lymphocytes # 0.2 K/mcL (0.6-4.6); Lymphocytes % 7.3 %; Mean Corpuscular HGB Conc 33.3 g/dL (31.6-35.5); Mean Corpuscular Hemoglobin 29.2 pg (28.0-33.3); Mean Corpuscular Volume 87.6 fL (83.0-100.0); Mean Platelet Volume 9.8 fL (9.4-12.4); Monocytes # 0.1 K/mcL (0.0-1.3); Monocytes % 3.7 %; Neutrophils # 2.2 K/mcL (1.6-8.9); Platelet Count 111 K/mcL (140-400); Red Blood Count 3.46 M/mcL (3.82-4.97); Red Cell Distribution Width 12.4 % (11.5-14.5); Segmented Neutrophils % 87.8 %
[2018-06-11] MEDS ORDERED: 0.9 % Sodium Chloride 1,000 ML IVC ONE (05:43)
[2018-06-11 05:44] LABS: Platelet Estimate Slight Decrease (Normal)
[2018-06-11 05:56] LABS: Adenovirus Not Detected (Not Detect); Coronavirus 229E Not Detected (Not Detect); Coronavirus HKU1 Not Detected (Not Detect); Coronavirus NL63 Not Detected (Not Detect); Coronavirus OC43 Not Detected (Not Detect); Human Metapneumovirus Not Detected (Not Detect); Human Rhinovirus/Enterovirus DETECTED (Not Detect)
[2018-06-11 05:57] LABS: Bordetella Pertussis Not Detected (Not Detect); Chlamydophila pneumoniae Not Detected (Not Detect); Influenza A Subtype 2009 H1 Not Detected (Not Detect); Influenza A Untypeable Not Detected (Not Detect); Influenza B Not Detected (Not Detect); Mycoplasma pneumoniae Not Detected (Not Detect); Parainfluenza Virus 1 Not Detected (Not Detect); Parainfluenza Virus 2 Not Detected (Not Detect); Parainfluenza Virus 3 Not Detected (Not Detect); Parainfluenza Virus 4 Not Detected (Not Detect); Respiratory Syncytial Virus Not Detected (Not Detect)
[2018-06-11] MEDS: *HR* Heparin 5,000 UNIT/ML VIAL SQ SCH ×2 (06:11→17:17)
[2018-06-11] MEDS: Budesonide/Formoterol 160/4.5 1 PUFF INH IH SCH ×2 (07:34→19:54)
[2018-06-11] MEDS: Azithromycin 500 MG in D5% in Water 250 ML IVPB SCH (07:54)
[2018-06-11] MEDS: ARIPiprazole 5 MG TABLET PO SCH (07:56)
[2018-06-11] MEDS: Gabapentin 300 MG CAPSULE PO SCH ×2 (07:56→20:23)
[2018-06-11] MEDS: clonazePAM 1 MG TABLET PO SCH ×3 (07:57→20:23)
[2018-06-11] MEDS: MethylPREDNISolone 40 MG/ML VIAL IVP SCH ×2 (07:57→16:44)
[2018-06-11] MEDS: Nicotine 14 MG PATCH.TD24 TD SCH (07:57)
[2018-06-11] MEDS: Cholecalciferol (D-3) 1,000 UNIT TABLET PO SCH (07:57)
[2018-06-11] MEDS: cefTRIAXone 1,000 MG in Water for inj. (sterile) 20 ML 10 ML IVP SCH (08:01)
[2018-06-11] MEDS ORDERED: MethylPREDNISolone 40 MG/ML VIAL IVP SCH (09:00)
--- NOTE | 2018-06-11 10:36 | Internal Med Progress Note ---
Hospitalist Progress Note - Encounter Date of Encounter: 06/11/18 Time of Encounter: 08:00 - Subjective Interval History: Much more alert and responsive today. Continues to have persistent cough but SOB slightly improve. No fever/chills since the presentation - Exam Vitals: Temp Pulse Resp BP Pulse Ox 97.5 F L 86 24 108/60 100 06/11/18 07:24 06/11/18 07:24 06/11/18 07:34 06/11/18 08:28 06/11/18 07:34 Exam: General: Mild somnolence noted but easily arousable with verbal command, mild distress. Cardiovascular:Normal S1 & S2, No JVD. Pulse regular. Lungs: diminished breath sound but improved air entry Abdomen:Soft, non-tender, no rigidity. Extremities:No deformity or swelling Neurological:Normal cognition and motor skills. Non-focal - Assessment and Plan (1) Acute exacerbation of chronic obstructive airways disease Current Visit: Yes Status: Acute Assessment and Plan: Presented with worsening shortness of breath and cough with CT finding suggestive of atypical pneumonia entero/rhinovirus +ve, flu -ve Continue IV Solu-Medrol, bronchodilators, Rocephin/azithromycin add cough syrupt Strep/Legionella antigen pending When necessary BiPAP Smoking Cessation emphasized (2) Pneumonia Current Visit: Yes Status: Acute Assessment and Plan: CT findings suggestive of atypical pneumonia mx as above (3) Anxiety disorder Current Visit: Yes Status: Chronic Assessment and Plan: Resume home meds (4) Hypothyroidism Current Visit: No Status: Chronic Assessment and Plan: Resume home meds (5) Tobacco abuse Current Visit: No Status: Chronic Assessment and Plan: smoking cessation emphasized NRT (6) DVT prophylaxis Current Visit: Yes Status: Acute Assessment and Plan: SQ heparin - Time Spent with Patient Total time spent is greater than 50% in coordination of care (as documented) at patient's floor/unit and/or counseling patient: Plan of Care Discussed with: patient (discussed with RN as well) Internal Medicine: Result - Labs CBC & Chem 7: 06/11/18 05:05 06/11/18 03:54 Labs: Short CBC 06/10/18 06/11/18 06/11/18 Range/Units 10:39 03:54 05:05 WBC 9.1 2.5 L D 2.5 L (4.3-11.1) K/mcL Hgb 12.3 10.6 L D 10.1 L (11.5-15.4) g/dL Hct 36.1 31.7 L 30.3 L (35.3-44.9) % Plt Count 162 114 L 111 L (140-400) K/mcL Neutrophils # 8.0 2.3 2.2 (1.6-8.9) K/mcL BMP 06/10/18 06/11/18 10:39 03:54 Sodium 132 L 135 L Potassium 3.9 3.7 Chloride 97 L 105 Carbon Dioxide 28 27 BUN 8 8 Creatinine 0.61 0.51 L Glucose 125 H 195 H Calcium 8.6 8.2 L Cardiac Enzymes 06/10/18 Range/Units 10:39 Troponin I < 0.03 (< 0.04) ng/mL Liver Function 06/10/18 Range/Units 10:39 Total Bilirubin 1.2 H (0.3-1.0) mg/dL Direct Bilirubin 0.3 H (0.0-0.2) mg/dL AST 13 (13-39) Units/L ALT 13 (7-52) Units/L Alkaline Phosphatase 83 (34-104) Units/L Albumin 3.7 (3.5-5.7) g/dL - ABG Interpretation ABG results: PT/INR, D-dimer PT 12.2 Seconds (9.4-12.1) H 06/10/18 10:39 - Impressions Impressions Chest X-Ray 06/10/18 10:39 IMPRESSION: 1. Findings are suggestive of COPD. 2. No focal consolidative pneumonia, pneumothorax, or significant pleural effusion. D/ / Amauri Tyler MD / Amauri Tyler MD Interpreting Provider: Amauri Tyler MD Chest CTA 06/10/18 11:56 IMPRESSION: No evidence of pulmonary embolism. Severe centrilobular emphysema and COPD. Lung bases are limited by motion artifact, however, suggestion of multiple tree-in-bud and ground-glass nodules suggesting atypical pneumonia. D/ / 06/10/2018 13:49:41 Emiliano Oliveira MD / lgray Interpreting Provider: Emiliano Oliveira MD Consult Discharge Plan - Plan Referrals: Westley Ayers MD [Primary Care Provider] - (2) Pneumonia Qualifiers: Pneumonia type: due to unspecified organism Laterality: bilateral Lung locat ion: lower lobe of lung Qualified Code(s): J18.1 - Lobar pneumonia, unspecified organism (3) Anxiety disorder Qualifiers: Anxiety disorder type: unspecified anxiety disorder Qualified Code(s): F41.9 - Anxiety disorder, unspecified (4) Hypothyroidism Qualifiers: Hypothyroidism type: acquired Qualified Code(s): E03.9 - Hypothyroidism, unspecified
[2018-06-11] MEDS: HYDROcodone BIT/Homatropine LQ 5 MG/5 ML UDC PO PRN ×2 (12:32→18:20)
[2018-06-11 15:27] LABS: ABG Base Excess 2 mEq/L (-2 to 3); ABG HCO3 28 mEq/L (21-27); ABG Oxygen Saturation 87 % (95-98); ABG PCO2 50 mmHg (35-45); ABG PH 7.36 pH Units (7.32-7.45); ABG PO2 56 mmHg (85-104); ABG TCO2 30 mEq/L (20-26)
[2018-06-12] MEDS: MethylPREDNISolone 40 MG/ML VIAL IVP SCH ×3 (00:39→17:34)
[2018-06-12] MEDS: HYDROcodone BIT/Homatropine LQ 5 MG/5 ML UDC PO PRN ×3 (00:40→19:32)
[2018-06-12] MEDS ORDERED: 0.9 % Sodium Chloride 1,000 ML IVC ONE (01:51)
[2018-06-12] MEDS: Ipratropium/Albuterol Neb 3 ML IH SCH ×5 (03:45→20:57)
[2018-06-12] MEDS: *HR* Heparin 5,000 UNIT/ML VIAL SQ SCH ×2 (06:11→17:34)
[2018-06-12 06:35] LABS: Hematocrit 30.4 % (35.3-44.9); Hemoglobin 9.7 g/dL (11.5-15.4); Immature Granulocytes % 0.6 % (0-4); Lymphocytes # 0.3 K/mcL (0.6-4.6); Lymphocytes % 7.8 %; Mean Corpuscular HGB Conc 31.9 g/dL (31.6-35.5); Mean Corpuscular Hemoglobin 28.7 pg (28.0-33.3); Mean Corpuscular Volume 89.9 fL (83.0-100.0); Mean Platelet Volume 9.9 fL (9.4-12.4); Monocytes # 0.2 K/mcL (0.0-1.3); Monocytes % 4.3 %; Platelet Count 166 K/mcL (140-400); Red Blood Count 3.38 M/mcL (3.82-4.97); Segmented Neutrophils % 87.3 %
[2018-06-12 06:53] LABS: BUN/Creatinine Ratio 24 (6-26); Blood Urea Nitrogen 13 mg/dL (6-20); Calcium 8.2 mg/dL (8.6-10.3); Carbon Dioxide 26 mEq/L (23-29); Chloride 108 mEq/L (98-107); Glucose 170 mg/dL (70-105); Osmolality,Calculated 294 (280-300); Potassium 4.1 mEq/L (3.5-5.1); Sodium 140 mEq/L (136-145); eGFR For Non-African Americans > 60 (> 60)
[2018-06-12] MEDS: Budesonide/Formoterol 160/4.5 1 PUFF INH IH SCH ×2 (07:20→20:57)
[2018-06-12] MEDS: Nicotine 14 MG PATCH.TD24 TD SCH (08:26)
[2018-06-12] MEDS: Cholecalciferol (D-3) 1,000 UNIT TABLET PO SCH (08:27)
[2018-06-12] MEDS: ARIPiprazole 5 MG TABLET PO SCH (08:27)
[2018-06-12] MEDS: cefTRIAXone 1,000 MG in Water for inj. (sterile) 20 ML 10 ML IVP SCH (08:27)
[2018-06-12] MEDS: Gabapentin 300 MG CAPSULE PO SCH ×2 (08:27→20:59)
[2018-06-12] MEDS: clonazePAM 1 MG TABLET PO SCH ×3 (08:27→20:59)
[2018-06-12] MEDS: Azithromycin 500 MG in D5% in Water 250 ML IVPB SCH (08:29)
[2018-06-12] MEDS ORDERED: Ringers Solution, Lactated 1,000 ML IVC ONE (11:11)
--- NOTE | 2018-06-12 11:15 | Internal Med Progress Note ---
Hospitalist Progress Note - Encounter Date of Encounter: 06/12/18 Time of Encounter: 08:30 - Subjective Interval History: Cough has subsided but continues to be tachypneic. No fever/chills since the presentation - Exam Vitals: Temp Pulse Resp BP Pulse Ox 97.6 F 81 17 94/57 97 06/12/18 07:18 06/12/18 07:18 06/12/18 07:18 06/12/18 07:18 06/12/18 07:18 Exam: General: alert and oriented x 3, mild distress. Cardiovascular:Normal S1 & S2, No JVD. Pulse regular. Lungs: improving aeration with diffuse inspiratory and expiratory wheezing Abdomen:Soft, non-tender, no rigidity. Extremities:No deformity or swelling Neurological:Normal cognition and motor skills. Non-focal - Assessment and Plan (1) Acute exacerbation of chronic obstructive airways disease Current Visit: Yes Status: Acute Assessment and Plan: Presented with worsening shortness of breath and cough with CT finding suggestive of atypical pneumonia entero/rhinovirus +ve, flu -ve Continue bronchodilators, Rocephin/azithromycin, and hycodan syrup decrease IV solumedrol to 40mg Q12H When necessary BiPAP Smoking Cessation emphasized (2) Pneumonia Current Visit: Yes Status: Acute Assessment and Plan: CT findings suggestive of atypical pneumonia mx as above (3) Anxiety disorder Current Visit: Yes Status: Chronic Assessment and Plan: Resume home meds (4) Hypothyroidism Current Visit: No Status: Chronic Assessment and Plan: Resume home meds (5) Tobacco abuse Current Visit: No Status: Chronic Assessment and Plan: smoking cessation emphasized NRT (6) DVT prophylaxis Current Visit: Yes Status: Acute Assessment and Plan: SQ heparin - Time Spent with Patient Total time spent is greater than 50% in coordination of care (as documented) at patient's floor/unit and/or counseling patient: Plan of Care Discussed with: patient Internal Medicine: Result - Labs CBC & Chem 7: 06/12/18 06:21 06/12/18 06:21 Labs: Short CBC 06/12/18 Range/Units 06:21 WBC 3.5 L (4.3-11.1) K/mcL Hgb 9.7 L (11.5-15.4) g/dL Hct 30.4 L (35.3-44.9) % Plt Count 166 (140-400) K/mcL Neutrophils # 3.0 (1.6-8.9) K/mcL BMP 06/12/18 06:21 Sodium 140 Potassium 4.1 Chloride 108 H Carbon Dioxide 26 BUN 13 Creatinine 0.54 L Glucose 170 H Calcium 8.2 L - ABG Interpretation ABG results: ABG ABG pH 7.36 pH Units (7.32-7.45) 06/11/18 15:23 ABG pCO2 50 mmHg (35-45) H 06/11/18 15:23 ABG pO2 56 mmHg (85-104) L 06/11/18 15:23 ABG O2 Saturation 87 % (95-98) L 06/11/18 15:23 PT/INR, D-dimer PT 12.2 Seconds (9.4-12.1) H 06/10/18 10:39 Consult Discharge Plan - Plan Referrals: Westley Ayers MD [Primary Care Provider] - (Office of DR. Ayers will call patient for an appt. as soon they will hear from ) (2) Pneumonia Qualifiers: Pneumonia type: due to unspecified organism Laterality: bilateral Lung location: lower lobe of lung Qualified Code(s): J18.1 - Lobar pneumonia, unspecified organism (3) Anxiety disorder Qualifiers: Anxiety disorder type: unspecified anxiety disorder Qualified Code(s): F41.9 - Anxiety disorder, unspecified (4) Hypothyroidism Qualifiers: Hypothyroidism type: acquired Qualified Code(s): E03.9 - Hypothyroidism, unspecified
[2018-06-12] MEDS ORDERED: 0.9 % Sodium Chloride 500 ML IVC PRN (11:17)
[2018-06-12 23:15] LABS: ABG Base Excess 7 mEq/L (-2 to 3); ABG HCO3 34 mEq/L (21-27); ABG Oxygen Saturation 95 % (95-98); ABG PCO2 65 mmHg (35-45); ABG PH 7.33 pH Units (7.32-7.45); ABG PO2 83 mmHg (85-104); ABG TCO2 36 mEq/L (20-26)
[2018-06-12] MEDS: Benzonatate 100 MG CAPSULE PO PRN (23:36)
[2018-06-13] MEDS: Ipratropium/Albuterol Neb 3 ML IH SCH ×7 (00:05→23:39)
[2018-06-13] MEDS: MethylPREDNISolone 40 MG/ML VIAL IVP SCH ×3 (06:19→20:14)
[2018-06-13] MEDS: *HR* Heparin 5,000 UNIT/ML VIAL SQ SCH ×2 (06:20→17:41)
[2018-06-13 07:15] LABS: Hematocrit 34.3 % (35.3-44.9); Hemoglobin 10.8 g/dL (11.5-15.4); Immature Granulocytes % 0.6 % (0-4); Lymphocytes # 0.6 K/mcL (0.6-4.6); Lymphocytes % 16.8 %; Mean Corpuscular HGB Conc 31.5 g/dL (31.6-35.5); Mean Corpuscular Hemoglobin 29.2 pg (28.0-33.3); Mean Corpuscular Volume 92.7 fL (83.0-100.0); Mean Platelet Volume 9.8 fL (9.4-12.4); Monocytes # 0.3 K/mcL (0.0-1.3); Neutrophils # 2.6 K/mcL (1.6-8.9); Platelet Count 198 K/mcL (140-400); Red Cell Distribution Width 13.2 % (11.5-14.5); Segmented Neutrophils % 74.6 %
[2018-06-13 07:36] LABS: BUN/Creatinine Ratio 28 (6-26); Blood Urea Nitrogen 16 mg/dL (6-20); Calcium 8.6 mg/dL (8.6-10.3); Carbon Dioxide 32 mEq/L (23-29); Chloride 105 mEq/L (98-107); Glucose 108 mg/dL (70-105); Osmolality,Calculated 290 (280-300); Potassium 4.2 mEq/L (3.5-5.1); Sodium 139 mEq/L (136-145); eGFR For Non-African Americans > 60 (> 60)
[2018-06-13] MEDS: clonazePAM 1 MG TABLET PO SCH ×3 (08:36→20:15)
[2018-06-13] MEDS: ARIPiprazole 5 MG TABLET PO SCH (08:36)
[2018-06-13] MEDS: Gabapentin 300 MG CAPSULE PO SCH ×2 (08:37→20:15)
[2018-06-13] MEDS: Cholecalciferol (D-3) 1,000 UNIT TABLET PO SCH (08:37)
[2018-06-13] MEDS: Azithromycin 250 MG TABLET PO SCH (08:37)
[2018-06-13] MEDS: Nicotine 14 MG PATCH.TD24 TD SCH (08:37)
[2018-06-13] MEDS: cefTRIAXone 1,000 MG in Water for inj. (sterile) 20 ML 10 ML IVP SCH (08:38)
[2018-06-13 09:09] LABS: Bilirubin,Urine Negative (Negative); Blood,Urine Negative (Negative); Clarity,Urine Clear (Clear); Color,Urine Yellow (Yellow); Glucose,Urine (UA) Normal (Normal); Ketones,Urine Negative (Negative); Leukocyte Esterase,Urine Negative (Negative); Nitrite,Urine Negative (Negative); PH,Urine 6.5 pH Units (5.0-8.0); Protein,Urine Negative (Neg-Trace); Urobilinogen,Urine Normal (Normal)
[2018-06-13] MEDS: Benzonatate 100 MG CAPSULE PO PRN ×2 (10:27→20:15)
[2018-06-13] MEDS: Budesonide/Formoterol 160/4.5 1 PUFF INH IH SCH ×2 (11:29→20:15)
--- NOTE | 2018-06-13 13:44 | Internal Med Progress Note ---
Hospitalist Progress Note - Encounter Date of Encounter: 06/13/18 Time of Encounter: 10:15 - Subjective Interval History: Patient was apparently wandering around the hospital last night looking for a bathroom in ICU. STates that she has not gotten significantly better since yesterday, did not notice much cough or sputum production. No fever/chills. ABG checked overnight did show worsening hypercarbia of 65 on 3L NC and was started on BiPaP. - Exam Vitals: Temp Pulse Resp BP Pulse Ox 97.6 F 97 22 103/63 98 06/13/18 11:35 06/13/18 11:35 06/13/18 11:35 06/13/18 11:35 06/13/18 11:35 Exam: General: alert, mild somnolence. Cardiovascular:Normal S1 & S2, No JVD. Pulse regular. Lungs: continues to have diffuse inspiratory and expiratory wheezing Abdomen:Soft, non-tender, no rigidity. Extremities:No deformity or swelling - Assessment and Plan (1) Acute exacerbation of chronic obstructive airways disease Current Visit: Yes Status: Acute Assessment and Plan: Presented with worsening shortness of breath and cough with CT finding suggestive of atypical pneumonia entero/rhinovirus +ve, flu -ve Continue bronchodilators, Rocephin/azithromycin, and hycodan syrup will increase IV solumedrol to 40mg Q6H in view of persistent wheezing and worsening hypercarbia repeat CXR When necessary BiPAP Smoking Cessation emphasized (2) Pneumonia Current Visit: Yes Status: Acute Assessment and Plan: CT findings suggestive of atypical pneumonia mx as above (3) Anxiety disorder Current Visit: Yes Status: Chronic Assessment and Plan: Resume home meds (4) Hypothyroidism Current Visit: No Status: Chronic Assessment and Plan: Resume home meds (5) Tobacco abuse Current Visit: No Status: Chronic Assessment and Plan: smoking cessation emphasized NRT (6) DVT prophylaxis Current Visit: Yes Status: Acute Assessment and Plan: SQ heparin - Time Spent with Patient Total time spent is greater than 50% in coordination of care (as documented) at patient's floor/unit and/or counseling patient: Plan of Care Discussed with: patient Internal Medicine: Result - Labs CBC & Chem 7: 06/13/18 07:03 06/13/18 07:03 Labs: Short CBC 06/13/18 Range/Units 07:03 WBC 3.5 L (4.3-11.1) K/mcL Hgb 10.8 L (11.5-15.4) g/dL Hct 34.3 L (35.3-44.9) % Plt Count 198 (140-400) K/mcL Neutrophils # 2.6 (1.6-8.9) K/mcL BMP 06/13/18 07:03 Sodium 139 Potassium 4.2 Chloride 105 Carbon Dioxide 32 H BUN 16 Creatinine 0.58 L Glucose 108 H Calcium 8.6 Urine 06/13/18 Range/Units 08:00 Urine Color Yellow (Yellow) Urine Clarity Clear (Clear) Urine pH 6.5 (5.0-8.0) pH Units Ur Specific [place] 1.010 (1.010-1.025) Urine Protein Negative (Neg-Trace) mg/dL Urine Glucose (UA) Normal (Normal) mg/dL - ABG Interpretation ABG results: ABG ABG pH 7.33 pH Units (7.32-7.45) 06/12/18 23:11 ABG pCO2 65 mmHg (35-45) H 06/12/18 23:11 ABG pO2 83 mmHg (85-104) L 06/12/18 23:11 ABG O2 Saturation 95 % (95-98) 06/12/18 23:11 PT/INR, D-dimer PT 12.2 Seconds (9.4-12.1) H 06/10/18 10:39 Consult Discharge Plan - Plan Referrals: Westley Ayers MD [Primary Care Provider] - (Office of DR. Ayers will call patient for an appt. as soon they will hear from ) (2) Pneumonia Qualifiers: Pneumonia type: due to unspecified organism Laterality: bilateral Lung location: lower lobe of lung Qualified Code(s): J18.1 - Lobar pneumonia, unspecified organism (3) Anxiety disorder Qualifiers: Anxiety disorder type: unspecified anxiety disorder Qualified Code(s): F41.9 - Anxiety disorder, unspecified (4) Hypothyroidism Qualifiers: Hypothyroidism type: acquired Qualified Code(s): E03.9 - Hypothyroidism, unspecified
[2018-06-13] MEDS: HYDROcodone BIT/Homatropine LQ 5 MG/5 ML UDC PO PRN (14:31)
[2018-06-14] MEDS: MethylPREDNISolone 40 MG/ML VIAL IVP SCH ×4 (03:01→20:17)
[2018-06-14 04:11] LABS: Basophils % 0.4 %; Hematocrit 33.5 % (35.3-44.9); Hemoglobin 10.5 g/dL (11.5-15.4); Immature Granulocytes % 1.9 % (0-4); Lymphocytes # 0.3 K/mcL (0.6-4.6); Lymphocytes % 12.7 %; Mean Corpuscular HGB Conc 31.3 g/dL (31.6-35.5); Mean Corpuscular Hemoglobin 28.9 pg (28.0-33.3); Mean Corpuscular Volume 92.3 fL (83.0-100.0); Mean Platelet Volume 9.8 fL (9.4-12.4); Monocytes # 0.2 K/mcL (0.0-1.3); Monocytes % 7.3 %; Platelet Count 194 K/mcL (140-400); Red Blood Count 3.63 M/mcL (3.82-4.97); Red Cell Distribution Width 12.6 % (11.5-14.5); Segmented Neutrophils % 77.7 %
[2018-06-14] MEDS: Ipratropium/Albuterol Neb 3 ML IH SCH ×6 (04:23→23:22)
[2018-06-14 04:26] LABS: BUN/Creatinine Ratio 25 (6-26); Blood Urea Nitrogen 15 mg/dL (6-20); Calcium 8.7 mg/dL (8.6-10.3); Carbon Dioxide 38 mEq/L (23-29); Chloride 103 mEq/L (98-107); Glucose 147 mg/dL (70-105); Magnesium 2.5 mg/dL (1.6-2.6); Osmolality,Calculated 300 (280-300); Potassium 4.4 mEq/L (3.5-5.1); Sodium 143 mEq/L (136-145); eGFR For Non-African Americans > 60 (> 60)
[2018-06-14] MEDS: *HR* Heparin 5,000 UNIT/ML VIAL SQ SCH ×2 (05:45→18:54)
[2018-06-14] MEDS: Budesonide/Formoterol 160/4.5 1 PUFF INH IH SCH ×2 (07:26→19:52)
[2018-06-14] MEDS: cefTRIAXone 1,000 MG in Water for inj. (sterile) 20 ML 10 ML IVP SCH (08:54)
[2018-06-14] MEDS: ARIPiprazole 5 MG TABLET PO SCH (08:54)
[2018-06-14] MEDS: Cholecalciferol (D-3) 1,000 UNIT TABLET PO SCH (08:54)
[2018-06-14] MEDS: Gabapentin 300 MG CAPSULE PO SCH ×2 (08:54→20:17)
[2018-06-14] MEDS: Azithromycin 250 MG TABLET PO SCH (08:54)
[2018-06-14] MEDS: clonazePAM 1 MG TABLET PO SCH ×3 (08:54→20:16)
[2018-06-14] MEDS: Nicotine 14 MG PATCH.TD24 TD SCH (08:56)
--- NOTE | 2018-06-14 11:37 | Internal Med Progress Note ---
Hospitalist Progress Note - Encounter Date of Encounter: 06/14/18 Time of Encounter: 09:15 - Subjective Interval History: Slightly better than yesterday and noted to be less tachypneic as well. Cough also better. No fever/chills. - Exam Vitals: Temp Pulse Resp BP Pulse Ox 97.7 F 92 16 104/57 98 06/14/18 07:12 06/14/18 07:12 06/14/18 07:30 06/14/18 07:12 06/14/18 09:06 Exam: General: alert, not in distress Cardiovascular:Normal S1 & S2, No JVD. Pulse regular. Lungs: improved air entry bilaterally with predominant expiratory wheezing Abdomen:Soft, non-tender, no rigidity. Extremities:No deformity or swelling - Assessment and Plan (1) Acute exacerbation of chronic obstructive airways disease Current Visit: Yes Status: Acute Assessment and Plan: Presented with worsening shortness of breath and cough with CT finding suggestive of atypical pneumonia entero/rhinovirus +ve, flu -ve Continue bronchodilators, Rocephin/azithromycin, and hycodan syrup repeat CXR shows improvement doing better on increased dose of IV solumedrol 40mg Q6H, continue for now When necessary BiPAP, bipap qualification done overnight Smoking Cessation emphasized (2) Pneumonia Current Visit: Yes Status: Acute Assessment and Plan: CT findings suggestive of atypical pneumonia mx as above (3) Anxiety disorder Current Visit: Yes Status: Chronic Assessment and Plan: Resume home meds (4) Hypothyroidism Current Visit: No Status: Chronic Assessment and Plan: Resume home meds (5) Tobacco abuse Current Visit: No Status: Chronic Assessment and Plan: smoking cessation emphasized NRT (6) DVT prophylaxis Current Visit: Yes Status: Acute Assessment and Plan: SQ heparin - Time Spent with Patient Total time spent is greater than 50% in coordination of care (as documented) at patient's floor/unit and/or counseling patient: Plan of Care Discussed with: patient (RN) Internal Medicine: Result - Labs CBC & Chem 7: 06/14/18 03:25 06/14/18 03:25 Labs: Short CBC 06/14/18 Range/Units 03:25 WBC 2.6 L (4.3-11.1) K/mcL Hgb 10.5 L (11.5-15.4) g/dL Hct 33.5 L (35.3-44.9) % Plt Count 194 (140-400) K/mcL Neutrophils # 2.0 (1.6-8.9) K/mcL BMP 06/14/18 03:25 Sodium 143 Potassium 4.4 Chloride 103 Carbon Dioxide 38 H BUN 15 Creatinine 0.59 L Glucose 147 H Calcium 8.7 - ABG Interpretation ABG results: ABG ABG pH 7.33 pH Units (7.32-7.45) 06/12/18 23:11 ABG pCO2 65 mmHg (35-45) H 06/12/18 23:11 ABG pO2 83 mmHg (85-104) L 06/12/18 23:11 ABG O2 Saturation 95 % (95-98) 06/12/18 23:11 PT/INR, D-dimer PT 12.2 Seconds (9.4-12.1) H 06/10/18 10:39 - Impressions Impressions Chest CTA 06/10/18 11:56 IMPRESSION: No evidence of pulmonary embolism. Severe centrilobular emphysema and COPD. Lung bases are limited by motion artifact, however, suggestion of multiple tree-in-bud and ground-glass nodules suggesting atypical pneumonia. D/ / 06/10/2018 13:49:41 Emiliano Oliveira MD / tito Interpreting Provider: Emiliano Oliveira MD Chest X-Ray 06/13/18 13:46 IMPRESSION: Interstitial opacities in lung bases appears slightly improved. D/ / Mary Tyler MD / Mary Tyler MD Interpreting Provider: Mary Tyler MD Consult Discharge Plan - Plan Referrals: Westley Ayers MD [Primary Care Provider] - (Office of DR. Ayers will call patient for an appt. as soon they will hear from ) (2) Pneumonia Qualifiers: Pneumonia type: due to unspecified organism Laterality: bilateral Lung location: lower lobe of lung Qualified Code(s): J18.1 - Lobar pneumonia, unspecified organism (3) Anxiety disorder Qualifiers: Anxiety disorder type: unspecified anxiety disorder Qualified Code(s): F41.9 - Anxiety disorder, unspecified (4) Hypothyroidism Qualifiers: Hypothyroidism type: acquired Qualified Code(s): E03.9 - Hypothyroidism, unspecified
[2018-06-14] MEDS: Acetaminophen 325 MG TABLET PO PRN (20:16)
[2018-06-15] MEDS: MethylPREDNISolone 40 MG/ML VIAL IVP SCH ×4 (01:05→17:11)
[2018-06-15 01:45] LABS: ABG Base Excess 13 mEq/L (-2 to 3); ABG HCO3 41 mEq/L (21-27); ABG Oxygen Saturation 94 % (95-98); ABG PCO2 77 mmHg (35-45); ABG PH 7.34 pH Units (7.32-7.45); ABG PO2 78 mmHg (85-104); ABG TCO2 44 mEq/L (20-26)
[2018-06-15] MEDS ORDERED: *HR* LORazepam 2 MG/ML VIAL IVP ONE (02:58)
[2018-06-15] MEDS: Ipratropium/Albuterol Neb 3 ML IH SCH ×6 (03:46→23:31)
[2018-06-15] MEDS: *HR* Heparin 5,000 UNIT/ML VIAL SQ SCH ×2 (04:42→17:11)
[2018-06-15 06:10] LABS: Basophils % 0.3 %; Hematocrit 31.9 % (35.3-44.9); Hemoglobin 10.1 g/dL (11.5-15.4); Immature Granulocytes % 3.5 % (0-4); Lymphocytes # 0.4 K/mcL (0.6-4.6); Lymphocytes % 10.6 %; Mean Corpuscular HGB Conc 31.7 g/dL (31.6-35.5); Mean Corpuscular Hemoglobin 29.4 pg (28.0-33.3); Mean Corpuscular Volume 92.7 fL (83.0-100.0); Mean Platelet Volume 9.9 fL (9.4-12.4); Monocytes # 0.2 K/mcL (0.0-1.3); Neutrophils # 2.9 K/mcL (1.6-8.9); Platelet Count 197 K/mcL (140-400); Red Blood Count 3.44 M/mcL (3.82-4.97); Red Cell Distribution Width 12.1 % (11.5-14.5); Segmented Neutrophils % 79.6 %
[2018-06-15 06:31] LABS: BUN/Creatinine Ratio 39 (6-26); Blood Urea Nitrogen 19 mg/dL (6-20); Calcium 8.7 mg/dL (8.6-10.3); Carbon Dioxide 40 mEq/L (23-29); Chloride 101 mEq/L (98-107); Glucose 125 mg/dL (70-105); Osmolality,Calculated 298 (280-300); Potassium 4.5 mEq/L (3.5-5.1); Sodium 142 mEq/L (136-145); eGFR For Non-African Americans > 60 (> 60)
--- NOTE | 2018-06-15 06:42 | Event Note ---
Date of Encounter: 06/15/18 Time of Encounter: 01:01 Alerted by pts. nurse KIM Dwyer that the pt. was somnolent and difficult to arouse. Stated pt. follows command but has choppy speech. Stat AGB ordered which showed pH of 7.34, PCO2 77, PO2 78, HCO3 41, total CO2 44, O2 saturation 94, base excess 13. Pt. only alert to person, previously A&O x3. Pt. on 3L via NC. SpO2 was 97%. RT consult ordered for BiPAP placement. Pt. tolerating BiPAP but 0.5 mg IVP Ativan ordered once in the event pt. was becoming anxious and not tolerating BiPAP. Hycodan syrup held d/t contraindication w/Ativan. Repeat ABG ordered for 07:00. Nurse instructed to monitor pt. closely and notify me immediately of any mental status or respiratory status changes.
[2018-06-15 06:46] LABS: ABG Base Excess 15 mEq/L (-2 to 3); ABG HCO3 44 mEq/L (21-27); ABG Oxygen Saturation 97 % (95-98); ABG PCO2 82 mmHg (35-45); ABG PH 7.34 pH Units (7.32-7.45); ABG PO2 102 mmHg (85-104); ABG TCO2 46 mEq/L (20-26); Blood Gas PEEP 6 cm H2O
[2018-06-15] MEDS: Budesonide/Formoterol 160/4.5 1 PUFF INH IH SCH ×2 (07:36→19:36)
[2018-06-15] MEDS: Azithromycin 250 MG TABLET PO SCH (09:03)
[2018-06-15] MEDS: Cholecalciferol (D-3) 1,000 UNIT TABLET PO SCH (09:04)
[2018-06-15] MEDS: Gabapentin 300 MG CAPSULE PO SCH ×2 (09:04→20:56)
[2018-06-15] MEDS: cefTRIAXone 1,000 MG in Water for inj. (sterile) 20 ML 10 ML IVP SCH (09:04)
[2018-06-15] MEDS: clonazePAM 1 MG TABLET PO SCH ×3 (09:04→20:56)
[2018-06-15] MEDS: Nicotine 14 MG PATCH.TD24 TD SCH (09:06)
[2018-06-15] MEDS: ARIPiprazole 5 MG TABLET PO SCH (09:53)
[2018-06-15] MEDS: Acetaminophen 325 MG TABLET PO PRN ×2 (10:08→15:57)
--- NOTE | 2018-06-15 10:11 | Internal Med Progress Note ---
Hospitalist Progress Note - Encounter Date of Encounter: 06/15/18 Time of Encounter: 08:15 - Subjective Interval History: Unchanged clinical status although she is mentating better than yesterday. RR also decreasing. No fever/chills and coughing a bit less. No leg swelling. - Exam Vitals: Temp Pulse Resp BP Pulse Ox 97.8 F 65 18 104/64 92 06/15/18 07:20 06/15/18 07:20 06/15/18 07:41 06/15/18 07:20 06/15/18 07:41 Exam: General: alert, not in distress Cardiovascular:Normal S1 & S2, No JVD. Pulse regular. Lungs: fair air entry bilaterally but persistent end-expiratory wheezing Abdomen:Soft, non-tender, no rigidity. Extremities:No deformity or swelling - Assessment and Plan (1) Acute exacerbation of chronic obstructive airways disease Current Visit: Yes Status: Acute Assessment and Plan: Presented with worsening shortness of breath and cough with CT finding suggestive of atypical pneumonia entero/rhinovirus +ve, flu -ve Continue bronchodilators, Rocephin/azithromycin. Hycodan switched to tessalon due to worsening hypercarbia continue solumedrol Q6 repeat CXR shows improvement patient clinically did not significantly improve over the last 2 days with worsening hypercarbia, although pH remains normal PRN bipap pulm consult bipap qualification done Smoking Cessation emphasized (2) Pneumonia Current Visit: Yes Status: Acute Assessment and Plan: CT findings suggestive of atypical pneumonia mx as above (3) Anxiety disorder Current Visit: Yes Status: Chronic Assessment and Plan: Resume home meds (4) Hypothyroidism Current Visit: No Status: Chronic Assessment and Plan: Resume home meds (5) Tobacco abuse Current Visit: No Status: Chronic Assessment and Plan: smoking cessation emphasized NRT (6) DVT prophylaxis Current Visit: Yes Status: Acute Assessment and Plan: SQ heparin - Time Spent with Patient Total time spent is greater than 50% in coordination of care (as documented) at patient's floor/unit and/or counseling patient: Plan of Care Discussed with: patient (discussed with pulm as well) Internal Medicine: Result - Labs CBC & Chem 7: 06/15/18 05:15 06/15/18 05:15 Labs: Short CBC 06/15/18 Range/Units 05:15 WBC 3.7 L (4.3-11.1) K/mcL Hgb 10.1 L (11.5-15.4) g/dL Hct 31.9 L (35.3-44.9) % Plt Count 197 (140-400) K/mcL Neutrophils # 2.9 (1.6-8.9) K/mcL BMP 06/15/18 05:15 Sodium 142 Potassium 4.5 Chloride 101 Carbon Dioxide 40 H* BUN 19 Creatinine 0.49 L Glucose 125 H Calcium 8.7 - ABG Interpretation ABG results: ABG ABG pH 7.34 pH Units (7.32-7.45) 06/15/18 06:41 ABG pCO2 82 mmHg (35-45) H* 06/15/18 06:41 ABG pO2 102 mmHg (85-104) 06/15/18 06:41 ABG O2 Saturation 97 % (95-98) 06/15/18 06:41 PT/INR, D-dimer PT 12.2 Seconds (9.4-12.1) H 06/10/18 10:39 Consult Discharge Plan - Plan Referrals: Westley Ayers MD [Primary Care Provider] - (Office of DR. Ayers will call patient for an appt. as soon they will hear from ) (2) Pneumonia Qualifiers: Pneumonia type: due to unspecified organism Laterality: bilateral Lung location: lower lobe of lung Qualified Code(s): J18.1 - Lobar pneumonia, unspecified organism (3) Anxiety disorder Qualifiers: Anxiety disorder type: unspecified anxiety disorder Qualified Code(s): F41.9 - Anxiety disorder, unspecified (4) Hypothyroidism Qualifiers: Hypothyroidism type: acquired Qualified Code(s): E03.9 - Hypothyroidism, unspecified
--- NOTE | 2018-06-15 10:24 | Pulmonology Consult Note ---
<Danis Aguilar W - Last Filed: 06/15/18 17:51> Date of Encounter: 06/15/18 Medications and Allergies Roflumilast [Daliresp] 500 mcg PO DAILY 03/09/15 [History] clonazePAM [Klonopin] 2 mg PO TID #0 03/14/15 [History] Umeclidinium Dixon [Incruse Ellipta] 1 puff IH DAILY 04/03/16 [History] Ipratropium/Albuterol Neb [Duoneb] 3 ml IH [id number] PRN #60 inhsol 04/10/16 [Rx] Calcium Carbonate/Vitamin D3 [Calcium 600-Vit D3 400 Tablet] 2 tab PO DAILY 06/18/17 [History] Docusate [Colace] 100 mg PO BID PRN capsule 06/18/17 [Rx] Albuterol Sulfate [Albuterol Inhaler] 2 puff IH Q6HR PRN 06/10/18 [History] Alendronate Sodium 70 mg PO MO 06/10/18 [History] Aripiprazole [Abilify] 15 mg PO DAILY 06/10/18 [History] Atorvastatin [Lipitor] 10 mg PO HS 06/10/18 [History] Benztropine Mesylate 1 mg PO BID 06/10/18 [History] Budesonide/Formoterol 160/4.5 [Symbicort 160/4.5] 2 puff IH BID 06/10/18 [History] Calcium Carbonate/Vitamin D3 [Calcium 600 + Vit D Tablet] 2 tab PO DAILY 06/10/18 [History] Ergocalciferol (VITAMIN D2) [Vitamin D] 400 unit PO DAILY 06/10/18 [History] Gabapentin [Neurontin] 600 mg PO BID 06/10/18 [History] Levothyroxine Sodium 88 mcg PO QAM 06/10/18 [History] Mv-Mn/FA/Vit K/Lycop/Lut/Coq10 [Daily Multivitamin Capsule] 1 cap PO DAILY 06/10/18 [History] Allergy/AdvReac Type Severity Reaction Status Date / Time sulfamethoxazole Allergy Hives Verified 06/10/18 10:37 [From Bactrim] trimethoprim [From Bactrim] Allergy Hives Verified 06/10/18 10:37 All Systems: The remainder of the systems were reviewed and are negative Physical Examination Vital Signs: Vital Signs, Last 4 Hours Temp Pulse Resp BP Pulse Ox 06/15/18 15:36 8 97 06/15/18 15:35 97.8 F 93 17 106/62 97 Results - Laboratory Findings CBC and BMP: 06/15/18 05:15 06/15/18 05:15 ABG ABG pH 7.34 pH Units (7.32-7.45) 06/15/18 06:41 ABG pCO2 82 mmHg (35-45) H* 06/15/18 06:41 ABG pO2 102 mmHg (85-104) 06/15/18 06:41 ABG O2 Saturation 97 % (95-98) 06/15/18 06:41 PT/INR, D-dimer PT 12.2 Seconds (9.4-12.1) H 06/10/18 10:39 Abnormal lab findings: Abnormal lab results WBC 3.7 K/mcL (4.3-11.1) L 06/15/18 05:15 RBC 3.44 M/mcL (3.82-4.97) L 06/15/18 05:15 Hgb 10.1 g/dL (11.5-15.4) L 06/15/18 05:15 Hct 31.9 % (35.3-44.9) L 06/15/18 05:15 Lymphocytes # 0.4 K/mcL (0.6-4.6) L 06/15/18 05:15 Platelet Estimate Slight Decrease (Normal) L 06/11/18 05:05 PT 12.2 Seconds (9.4-12.1) H 06/10/18 10:39 ABG pCO2 82 mmHg (35-45) H* 06/15/18 06:41 ABG HCO3 44 mEq/L (21-27) H 06/15/18 06:41 ABG Total CO2 46 mEq/L (20-26) H 06/15/18 06:41 ABG Base Excess 15 mEq/L (-2 to 3) H 06/15/18 06:41 VBG pH 7.31 pH Units (7.32-7.42) L 06/10/18 14:22 VBG pCO2 53 mmHg (41-51) H 06/10/18 14:22 VBG pO2 107 mmHg (25-50) H 06/10/18 14:22 Carbon Dioxide 40 mEq/L (23-29) H* 06/15/18 05:15 Creatinine 0.49 mg/dL (0.60-1.20) L 06/15/18 05:15 BUN/Creatinine Ratio 39 (6-26) H 06/15/18 05:15 Glucose 125 mg/dL (70-105) H 06/15/18 05:15 Total Bilirubin 1.2 mg/dL (0.3-1.0) H 06/10/18 10:39 Direct Bilirubin 0.3 mg/dL (0.0-0.2) H 06/10/18 10:39 Entero/Rhino (PCR) DETECTED (Not Detect) A 06/11/18 05:02 - Microbiology Findings Microbiology Findings: Microbiology, Last 48 Hours 06/10/18 11:01 Blood Culture - Final Peripheral Venipuncture No growth. Final report. 06/10/18 11:03 Blood Culture - Final Peripheral Venipuncture No growth. Final report. 06/13/18 08:33 Urine Culture - Final Urine,Clean Catch No significant growth. - Clinical Findings Intake & Output: Intake & Output 06/15/18 06/15/18 06/15/18 07:59 15:59 23:59 Intake Total 250 / 250 Output Total 300 / 300 400 / 400 Balance -300 / -300 -150 / -150 Weight 52.5 kg Consult Discharge Plan - Plan Referrals: Westley Ayers MD [Primary Care Provider] - (Office of DR. Ayers will call patient for an appt. as soon they will hear from ) - Attending Attestation I examined this patient and my medical decision-making was reviewed with the Resident Physician. I agree with the documented findings, disposition and treatment plan as described except to the extent set forth below. We independent ly had [id number] contact with the patient Patient seen and examined at bedside Labs, radiology, chart personally reviewed. Impression/Recs: 58-year-old woman with advanced COPD presenting with acute on chronic hypoxic hypercapnic respiratory failure secondary to COPD exacerbation from acute rhinovirus bronchiolitis. -Slow convalescence which is not unexpected given severity of underlying lung disease and acute inflammatory process such as rhinovirus -Agree with continuation of noninvasive positive pressure ventilation at night and with naps she is to qualify for this prior to discharge I suspect she will need to use this for the foreseeable future -Current therapeutics I believe her appropriate but this will take time I suspect some degree of steroid resistance given her chronic tobacco abuse -Recommend obtaining a sputum culture to rule out bacterial infection but of cultures negative. Likely just de-escalate antibiotics to macrolide to complete a 5-7 days -Continue IV glucocorticoids with transition to oral I suspect within the next 48 hours -I strongly encouraged patient to remain tobacco free at the time of discharge -Outpatient pulmonary follow-up she is established in pulmonary clinic with Dr. Naidu Thank you for this consultation please call with any questions pulmonary will sign off <Fide Tomlin N - Last Filed: 06/15/18 20:34> Date of Encounter: 06/15/18 Time of Encounter: 10:24 Assessment and Plan (1) Acute on chronic respiratory failure with hypoxia and hypercapnia Current Visit: Yes Status: Acute Multifactorial etiology. Patient has had persistent hypercarbia, which has been worsening over the last few days. - BiPAP qualification study completed during this admission - Continue use of BiPAP at night and during naps - Continue supplemental oxygen use titrated to maintain oxygen saturation 88-92% - Further management as detailed below (2) Acute exacerbation of chronic obstructive airways disease Current Visit: Yes Status: Acute - Continue bronchodilators and steroids - Recommend transition to oral steroids over the next few days (3) Rhinovirus Current Visit: Yes Status: Acute (4) Pneumonia Current Visit: Yes Status: Acute Patient is currently on multiple antimicrobial agents. CTA findings are suggestive of atypical organism. - Recommend sputum culture - Expect that antibiotic therapy can be deescalated over the next few days to azithromycin alone Qualifiers: Pneumonia type: due to unspecified organism Laterality: bilateral Lung location: lower lobe of lung Qualified Code(s): J18.1 - Lobar pneumonia, unspecified organism (5) Oral thrush Current Visit: Yes Status: Acute - Recommend nystatin (6) Tobacco abuse Current Visit: No Status: Chronic - Tobacco cessation counseling provided and importance of quitting was emphasized History of Present Illness Consult date: 06/15/18 Requesting physician: Koby Morris Reason for consult: abnormal CXR/CT, other (Worsening hypercarbia) Chief complaint: Worsening dyspnea History of present illness: Ms. Ayala is a 58-year old female with a history of COPD requiring home oxygen who was admitted to the hospital for acute COPD exacerbatinon on 06/10/2018. She reports that she had been experiencing worsening shortness of breath for several days prior to hospital admission, with associated sinus congestion and cough wi th minimal sputum production. CTA performed on 06/10 demosntrated severe centrilobular emphysema and COPD, as well as multiple tree-in-bud and ground glass nodules suggestive of atypical pneumonia. Respiratory viral panel was positive for enter/rhinovirus. Patient was treated for everal days with br onchodilator therapy, steroids, and azithromycin/rocephin; however, she has had worsening hypercarbia despite use of BiPAP at night, prompting pulmonology consultation. Patient was seen and evaluated at the bedside. She reports feeling unwell, though she has had slight improvement in her breathing since admission to the hospital. She appears tearful, and states that she needs to return home soon, as she cares for a 4-year old child at home. She denies any other acute complaints or concerns at this time. Past Med Surg Social Fam HX - Past Medical History Medical history: COPD, thyroid disease Additional medical history: Urinary Stress Incontinence, Chronic Sinusitis, Menopausal symptoms, Eczema Psychiatric history: anxiety, depression, PTSD - Past Surgical History Surgical History: other Additional surgical history: T&A, D&C, left leg janice, ultrasound left breast bx. - Social History Smoking Status: Current every day smoker Packs per day: 1/2 Smokeless Tobacco Status: No Alcohol use: none Drug use: none - Family History Mother History Unknown: Yes Adopted: No Age: 78 Family Member Ethnicity: Non- Living Status: Still Living Hx Family Cardiac Disorders: Yes (heart disease) Hx Family Respiratory Disorders: No Hx Family Cancer: No Hx Family GI Disorders: No Hx Family Endocrine Disorder: No Hx Family Neuromuscular Disorders: No Hx Family Neurologic Disorders: No Hx Family HEENT Disorders: Yes (Cataracts) Hx Family Autoimmune Disorders: No Brother Maternal History Unknown: Yes Living Status: Age at : 40 Cause of : colon cancer All Systems: The remainder of the systems were reviewed and are negative - Constitutional Constitutional: fatigue, fever(s) - EENT Nose, mouth and throat: nasal congestion, nasal discharge, post-nasal drip, sore throat - Cardiovascular Cardiovascular: dyspnea, dyspnea on exertion - Respiratory Respiratory: cough, dyspnea on exertion, no excessive phlegm production Physical Examination Vital Signs: Vital Signs, Last 4 Hours Temp Pulse Resp BP Pulse Ox 06/15/18 10:13 92 06/15/18 07:41 18 92 06/15/18 07:20 97.8 F 65 20 104/64 100 General appearance: no acute distress Eyes: nonicteric ENT: oropharynx moist, other (White areas present consistent with candidiasis) Effort: normal Inspection: normal Auscultation: bilateral: diminished breath sounds, wheezes Cardiovascular: regular rate and rhythm Integumentary: normal Extremities: no cyanosis, pink and warm normal mental status, non-focal exam mood appropriate, affect normal Results - Laboratory Findings CBC and BMP: 06/15/18 05:15 06/15/18 05:15 ABG ABG pH 7.34 pH Units (7.32-7.45) 06/15/18 06:41 ABG pCO2 82 mmHg (35-45) H* 06/15/18 06:41 ABG pO2 102 mmHg (85-104) 06/15/18 06:41 ABG O2 Saturation 97 % (95-98) 06/15/18 06:41 PT/INR, D-dimer PT 12.2 Seconds (9.4-12.1) H 06/10/18 10:39 Abnormal lab findings: Abnormal lab results WBC 3.7 K/mcL (4.3-11.1) L 06/15/18 05:15 RBC 3.44 M/mcL (3.82-4.97) L 06/15/18 05:15 Hgb 10.1 g/dL (11.5-15.4) L 06/15/18 05:15 Hct 31.9 % (35.3-44.9) L 06/15/18 05:15 Lymphocytes # 0.4 K/mcL (0.6-4.6) L 06/15/18 05:15 Platelet Estimate Slight Decrease (Normal) L 06/11/18 05:05 PT 12.2 Seconds (9.4-12.1) H 06/10/18 10:39 ABG pCO2 82 mmHg (35-45) H* 06/15/18 06:41 ABG HCO3 44 mEq/L (21-27) H 06/15/18 06:41 ABG Total CO2 46 mEq/L (20-26) H 06/15/18 06:41 ABG Base Excess 15 mEq/L (-2 to 3) H 06/15/18 06:41 VBG pH 7.31 pH Units (7.32-7.42) L 06/10/18 14:22 VBG pCO2 53 mmHg (41-51) H 06/10/18 14:22 VBG pO2 107 mmHg (25-50) H 06/10/18 14:22 Carbon Dioxide 40 mEq/L (23-29) H* 06/15/18 05:15 Creatinine 0.49 mg/dL (0.60-1.20) L 06/15/18 05:15 BUN/Creatinine Ratio 39 (6-26) H 06/15/18 05:15 Glucose 125 mg/dL (70-105) H 06/15/18 05:15 Total Bilirubin 1.2 mg/dL (0.3-1.0) H 06/10/18 10:39 Direct Bilirubin 0.3 mg/dL (0.0-0.2) H 06/10/18 10:39 Entero/Rhino (PCR) DETECTED (Not Detect) A 06/11/18 05:02 - Microbiology Findings Microbiology Findings: Microbiology, Last 48 Hours 06/13/18 08:33 Urine Culture - Final Urine,Clean Catch No significant growth. - Clinical Findings Intake & Output: Intake & Output 06/14/18 06/15/18 06/15/18 23:59 07:59 15:59 Intake Total 240 / 240 Output Total 300 / 300 400 / 400 Balance -300 / -300 -160 / -160 Weight 52.5 kg
[2018-06-16] MEDS: Ipratropium/Albuterol Neb 3 ML IH SCH ×5 (03:34→19:56)
[2018-06-16] MEDS: MethylPREDNISolone 40 MG/ML VIAL IVP SCH ×3 (06:26→17:47)
[2018-06-16] MEDS: *HR* Heparin 5,000 UNIT/ML VIAL SQ SCH ×2 (06:26→17:47)
[2018-06-16] MEDS: Budesonide/Formoterol 160/4.5 1 PUFF INH IH SCH ×2 (07:20→19:55)
--- NOTE | 2018-06-16 09:31 | Pulmonology Progress Note ---
<Fide Tomlin N - Last Filed: 06/16/18 15:41> Date of Encounter: 06/16/18 Time of Encounter: 09:31 Assessment and Plan (1) Acute on chronic respiratory failure with hypoxia and hypercapnia Current Visit: Yes Status: Acute Likely secondary to atypical pneumonia and acute COPD exacerbation. Patient has had persistent hypercarbia, which appears to be slightly improved today. - BiPAP qualification study completed during this admission - Continue use of BiPAP at night and during naps - Continue supplemental oxygen use titrated to maintain oxygen saturation 88-92% - Further management as detailed below (2) Acute exacerbation of chronic obstructive airways disease Current Visit: Yes Status: Acute - Continue bronchodilator therapy and BiPAP PRN - Agree with decreasing IV steroids in anticipation of transition to oral therapy - Consider 6-minute walk test prior to discharge to assess for home oxygen requirements (3) Acute delirium Current Visit: Yes Status: Acute Multifactorial etiology. - Consider medication review and minimizing substances that could worsen her confusion (4) Rhinovirus Current Visit: Yes Status: Acute (5) Pneumonia Current Visit: Yes Status: Acute Patient is currently on multiple antimicrobial agents. CTA findings are sugge stive of atypical organism. - Recommend sputum culture - Expect that antibiotic therapy can be deescalated over the next few days to azithromycin alone Qualifiers: Pneumonia type: due to unspecified organism Laterality: bilateral Lung location: lower lobe of lung Qualified Code(s): J18.1 - Lobar pneumonia, unspecified organism (6) Oral thrush Current Visit: Yes Status: Acute - Recommend nystatin PO QID (7) Tobacco abuse Current Visit: No Status: Chronic - Smoking cessation encouraged Subjective Principal diagnosis: Acute hypoxic respiratory failure Interval history: Patient was seen and evaluated at the bedside. She was moved to a different room closer to the nurse's station overnight due to acute confusion. Patient did use BiPAP therapy overnight, though she does remain slightly confused this morning per nursing staff. She denies any fevers/chills today. Morning laboratory studies were not obtained due to patient refusal. She reports shortness of breath with minimal movement, and becomes visibly dyspneic after being asked to sit forward for lung exam. Objective PUL Vital signs: Last Vital Signs Temp 97.8 F 06/16/18 07:28 Pulse 85 06/16/18 07:28 Resp 20 06/16/18 07:28 BP 121/59 06/16/18 07:28 Pulse Ox 92 06/16/18 07:28 General appearance: lethargic, appears uncomfortable Eyes: nonicteric ENT: oropharynx moist Auscultation: bilateral: diminished breath sounds Cardiovascular: regular rate and rhythm Integumentary: normal Extremities: no cyanosis, no edema, no clubbing, pink and warm Musculoskeletal: no deformities non-focal exam mood appropriate, affect normal Results - Laboratory Findings CBC and BMP: 06/15/18 05:15 06/15/18 05:15 ABG ABG pH 7.34 pH Units (7.32-7.45) 06/15/18 06:41 ABG pCO2 82 mmHg (35-45) H* 06/15/18 06:41 ABG pO2 102 mmHg (85-104) 06/15/18 06:41 ABG O2 Saturation 97 % (95-98) 06/15/18 06:41 PT/INR, D-dimer PT 12.2 Seconds (9.4-12.1) H 06/10/18 10:39 Abnormal lab findings: Abnormal lab results WBC 3.7 K/mcL (4.3-11.1) L 06/15/18 05:15 RBC 3.44 M/mcL (3.82-4.97) L 06/15/18 05:15 Hgb 10.1 g/dL (11.5-15.4) L 06/15/18 05:15 Hct 31.9 % (35.3-44.9) L 06/15/18 05:15 Lymphocytes # 0.4 K/mcL (0.6-4.6) L 06/15/18 05:15 Platelet Estimate Slight Decrease (Normal) L 06/11/18 05:05 PT 12.2 Seconds (9.4-12.1) H 06/10/18 10:39 ABG pCO2 82 mmHg (35-45) H* 06/15/18 06:41 ABG HCO3 44 mEq/L (21-27) H 06/15/18 06:41 ABG Total CO2 46 mEq/L (20-26) H 06/15/18 06:41 ABG Base Excess 15 mEq/L (-2 to 3) H 06/15/18 06:41 VBG pH 7.31 pH Units (7.32-7.42) L 06/10/18 14:22 VBG pCO2 53 mmHg (41-51) H 06/10/18 14:22 VBG pO2 107 mmHg (25-50) H 06/10/18 14:22 Carbon Dioxide 40 mEq/L (23-29) H* 06/15/18 05:15 Creatinine 0.49 mg/dL (0.60-1.20) L 06/15/18 05:15 BUN/Creatinine Ratio 39 (6-26) H 06/15/18 05:15 Glucose 125 mg/dL (70-105) H 06/15/18 05:15 Total Bilirubin 1.2 mg/dL (0.3-1.0) H 06/10/18 10:39 Direct Bilirubin 0.3 mg/dL (0.0-0.2) H 06/10/18 10:39 Entero/Rhino (PCR) DETECTED (Not Detect) A 06/11/18 05:02 - Microbiology Findings Microbiology Findings: Microbiology, Last 48 Hours 06/10/18 11:01 Blood Culture - Final Peripheral Venipuncture No growth. Final report. 06/10/18 11:03 Blood Culture - Final Peripheral Venipuncture No growth. Final report. 06/13/18 08:33 Urine Culture - Final Urine,Clean Catch No significant growth. - Clinical Findings Intake & Output: Intake & Output 06/15/18 06/16/18 06/16/18 23:59 07:59 15:59 Intake Total 240 / 240 Output Total 300 / 300 Balance -60 / -60 Weight 52.7 kg Consult Discharge Plan - Plan Referrals: Westley Ayers MD [Primary Care Provider] - (Office of DR. Ayers will call patient for an appt. as soon they will hear from ) <Danis Aguilar W - Last Filed: 06/16/18 15:49> Date of Encounter: 06/16/18 Objective PUL Vital signs: Last Vital Signs Temp 98.2 F 06/16/18 15:31 Pulse 85 06/16/18 15:31 Resp 17 06/16/18 15:31 BP 111/67 06/16/18 15:31 Pulse Ox 100 06/16/18 15:31 Results - Laboratory Findings CBC and BMP: 06/15/18 05:15 06/15/18 05:15 ABG ABG pH 7.41 pH Units (7.32-7.45) 06/16/18 12:02 ABG pCO2 70 mmHg (35-45) H* 06/16/18 12:02 ABG pO2 95 mmHg (85-104) 06/16/18 12:02 ABG O2 Saturation 97 % (95-98) 06/16/18 12:02 PT/INR, D-dimer PT 12.2 Seconds (9.4-12.1) H 06/10/18 10:39 Abnormal lab findings: Abnormal lab results WBC 3.7 K/mcL (4.3-11.1) L 06/15/18 05:15 RBC 3.44 M/mcL (3.82-4.97) L 06/15/18 05:15 Hgb 10.1 g/dL (11.5-15.4) L 06/15/18 05:15 Hct 31.9 % (35.3-44.9) L 06/15/18 05:15 Lymphocytes # 0.4 K/mcL (0.6-4.6) L 06/15/18 05:15 Platelet Estimate Slight Decrease (Normal) L 06/11/18 05:05 PT 12.2 Seconds (9.4-12.1) H 06/10/18 10:39 ABG pCO2 70 mmHg (35-45) H* 06/16/18 12:02 ABG HCO3 44 mEq/L (21-27) H 06/16/18 12:02 ABG Total CO2 46 mEq/L (20-26) H 06/16/18 12:02 ABG Base Excess 16 mEq/L (-2 to 3) H 06/16/18 12:02 VBG pH 7.31 pH Units (7.32-7.42) L 06/10/18 14:22 VBG pCO2 53 mmHg (41-51) H 06/10/18 14:22 VBG pO2 107 mmHg (25-50) H 06/10/18 14:22 Carbon Dioxide 40 mEq/L (23-29) H* 06/15/18 05:15 Creatinine 0.49 mg/dL (0.60-1.20) L 06/15/18 05:15 BUN/Creatinine Ratio 39 (6-26) H 06/15/18 05:15 Glucose 125 mg/dL (70-105) H 06/15/18 05:15 Total Bilirubin 1.2 mg/dL (0.3-1.0) H 06/10/18 10:39 Direct Bilirubin 0.3 mg/dL (0.0-0.2) H 06/10/18 10:39 Entero/Rhino (PCR) DETECTED (Not Detect) A 06/11/18 05:02 - Microbiology Findings Microbiology Findings: Microbiology, Last 48 Hours 06/10/18 11:01 Blood Culture - Final Peripheral Venipuncture No growth. Final report. 06/10/18 11:03 Blood Culture - Final Peripheral Venipuncture No growth. Final report. 06/13/18 08:33 Urine Culture - Final Urine,Clean Catch No significant growth. - Clinical Findings Intake & Output: Intake & Output 06/15/18 06/16/18 06/16/18 23:59 07:59 15:59 Intake Total 240 / 240 800 / 800 Output Total 300 / 300 Balance -60 / -60 800 / 800 Weight 52.7 kg - Attending Attestation I examined this patient and my medical decision-making was reviewed with the Resident Physician. I agree with the documented findings, disposition and treatment plan as described except to the extent set forth below. We independently had [id number] contact with the patient Patient seen and examined at bedside Labs, radiology, chart personally reviewed. Impression/Recs: Overall respiratory failure appears to be improving needs discharge with BiPAP to be used during naps and with sleep; aggressive regimen to combat atelectasis including out of bed to chair incentive spirometry and physical therapy consultation is required. Transition to oral glucocorticoids prednisone 40 mg to complete the 2-3 week taper Outpatient pulmonary follow-up
[2018-06-16] MEDS: cefTRIAXone 1,000 MG in Water for inj. (sterile) 20 ML 10 ML IVP SCH (09:55)
[2018-06-16] MEDS: Azithromycin 250 MG TABLET PO SCH (09:57)
[2018-06-16] MEDS: Nicotine 14 MG PATCH.TD24 TD SCH (09:57)
[2018-06-16] MEDS: ARIPiprazole 5 MG TABLET PO SCH (09:57)
[2018-06-16] MEDS: Gabapentin 300 MG CAPSULE PO SCH ×2 (09:57→20:47)
[2018-06-16] MEDS: clonazePAM 1 MG TABLET PO SCH ×3 (09:58→20:48)
[2018-06-16] MEDS: Cholecalciferol (D-3) 1,000 UNIT TABLET PO SCH (09:58)
[2018-06-16 12:05] LABS: ABG Base Excess 16 mEq/L (-2 to 3); ABG HCO3 44 mEq/L (21-27); ABG Oxygen Saturation 97 % (95-98); ABG PCO2 70 mmHg (35-45); ABG PH 7.41 pH Units (7.32-7.45); ABG PO2 95 mmHg (85-104); ABG TCO2 46 mEq/L (20-26); Blood Gas PEEP 7 cm H2O; Blood Gas Respiration Rate 8
--- NOTE | 2018-06-16 16:09 | Internal Med Progress Note ---
Hospitalist Progress Note - Encounter Date of Encounter: 06/16/18 Time of Encounter: 08:00 - Subjective Interval History: patient was seen and examined at bedside. has distress about having her room changed. all questions answered reports that her SOb has improved denies N/V/D, CP or palpitations - Exam Vitals: Temp Pulse Resp BP Pulse Ox 98.2 F 85 17 111/67 100 06/16/18 15:31 06/16/18 15:31 06/16/18 15:31 06/16/18 15:31 06/16/18 15:31 Exam: General: alert, in mild distress ( tearful), speaks in full sentences Cardiovascular: RRR s and s2 Lungs: decreased breath sounds bilaterally, faint wheezes in the posterior chest Abdomen:Soft, non-tender, no rigidity. Extremities:No deformity or swelling, moving all extremities - Assessment and Plan (1) Acute exacerbation of chronic obstructive airways disease Current Visit: Yes Status: Acute Assessment and Plan: Presented with worsening shortness of breath and cough with CT finding suggestiv e of atypical pneumonia entero/rhinovirus +ve, flu -ve Continue bronchodilators Hycodan switched to tessalon due to worsening hypercarbia continue solumedrol tapered continue bipap pulm recs appreciated bipap qualification done Smoking Cessation emphasized will need 6 min walk test to continue with zithromax to complete a 10 day course will transition her to PO steroids on discharge for a 2-3 week course taper (2) Acute on chronic respiratory failure with hypoxia and hypercapnia Current Visit: Yes Status: Acute Assessment and Plan: secondary to above management as per above (3) Anxiety disorder Current Visit: Yes Status: Chronic Assessment and Plan: Resume home meds (4) Hypothyroidism Current Visit: No Status: Chronic Assessment and Plan: Resume home meds (5) Pneumonia Current Visit: Yes Status: Acute Assessment and Plan: CT findings suggestive of atypical pneumonia will continue wth zithromax alone to complete a 10 day course (6) Tobacco abuse Current Visit: No Status: Chronic Assessment and Plan: smoking cessation emphasized NRT (7) DVT prophylaxis Current Visit: Yes Status: Acute Assessment and Plan: SQ heparin - Time Spent with Patient Total time spent is greater than 50% in coordination of care (as documented) at patient's floor/unit and/or counseling patient: Internal Medicine: Result - Labs CBC & Chem 7: 06/15/18 05:15 06/15/18 05:15 - ABG Interpretation ABG results: ABG ABG pH 7.41 pH Units (7.32-7.45) 06/16/18 12:02 ABG pCO2 70 mmHg (35-45) H* 06/16/18 12:02 ABG pO2 95 mmHg (85-104) 06/16/18 12:02 ABG O2 Saturation 97 % (95-98) 06/16/18 12:02 PT/INR, D-dimer PT 12.2 Seconds (9.4-12.1) H 06/10/18 10:39 Consult Discharge Plan - Plan Referrals: Westley Ayers MD [Primary Care Provider] - (Office of DR. Ayers will call patient for an appt. as soon they will hear from ) (3) Anxiety disorder Qualifiers: Anxiety disorder type: unspecified anxiety disorder Qualified Code(s): F41.9 - Anxiety disorder, unspecified (4) Hypothyroidism Qualifiers: Hypothyroidism type: acquired Qualified Code(s): E03.9 - Hypothyroidism, unspecified (5) Pneumonia Qualifiers: Pneumonia type: due to unspecified organism Laterality: bilateral Lung location: lower lobe of lung Qualified Code(s): J18.1 - Lobar pneumonia, unspecified organism
[2018-06-16] MEDS: Benzonatate 100 MG CAPSULE PO PRN (18:06)
[2018-06-16] MEDS: Nystatin SUSP 5 ML UD.LIQ PO SCH (20:48)
[2018-06-17] MEDS: Ipratropium/Albuterol Neb 3 ML IH SCH ×5 (00:44→15:47)
[2018-06-17 03:17] LABS: Hematocrit 32.6 % (35.3-44.9); Hemoglobin 10.1 g/dL (11.5-15.4); Mean Corpuscular Volume 93.7 fL (83.0-100.0); Mean Platelet Volume 9.1 fL (9.4-12.4); Platelet Count 197 K/mcL (140-400); Red Blood Count 3.48 M/mcL (3.82-4.97); Red Cell Distribution Width 12.1 % (11.5-14.5)
[2018-06-17 03:53] LABS: BUN/Creatinine Ratio 45 (6-26); Blood Urea Nitrogen 21 mg/dL (6-20); Calcium 8.3 mg/dL (8.6-10.3); Carbon Dioxide 41 mEq/L (23-29); Chloride 100 mEq/L (98-107); Glucose 128 mg/dL (70-105); Osmolality,Calculated 299 (280-300); Potassium 4.7 mEq/L (3.5-5.1); Sodium 142 mEq/L (136-145); eGFR For Non-African Americans > 60 (> 60)
[2018-06-17] MEDS: MethylPREDNISolone 40 MG/ML VIAL IVP SCH (05:20)
[2018-06-17] MEDS: *HR* Heparin 5,000 UNIT/ML VIAL SQ SCH (05:20)
[2018-06-17] MEDS: Budesonide/Formoterol 160/4.5 1 PUFF INH IH SCH ×2 (07:38→11:13)
[2018-06-17] MEDS: Gabapentin 300 MG CAPSULE PO SCH (08:53)
[2018-06-17] MEDS: Cholecalciferol (D-3) 1,000 UNIT TABLET PO SCH (08:53)
[2018-06-17] MEDS: ARIPiprazole 5 MG TABLET PO SCH (08:53)
[2018-06-17] MEDS: Nystatin SUSP 5 ML UD.LIQ PO SCH ×3 (08:53→16:03)
[2018-06-17] MEDS: clonazePAM 1 MG TABLET PO SCH ×2 (08:53→16:03)
[2018-06-17] MEDS: Nicotine 14 MG PATCH.TD24 TD SCH (08:54)
[2018-06-17] MEDS ORDERED: Azithromycin 250 MG TABLET PO SCH (09:00)
[2018-06-17 11:57] VITALS: BP 124/66
--- NOTE | 2018-06-17 14:02 | Physician Discharge Referral ---
Home Health/Hosp Referral Info Transfer to: Home Health Provider in Charge Post Discharge: PCP - Diagnosis (1) Acute exacerbation of chronic obstructive airways disease Priority: Primary Status: Acute (2) Acute on chronic respiratory failure with hypoxia and hypercapnia Priority: Secondary Status: Acute (3) Anxiety disorder Priority: Secondary Status: Chronic (4) Hypothyroidism Priority: Secondary Status: Chronic (5) Pneumonia Priority: Secondary Status: Acute (6) Tobacco abuse Priority: Secondary Status: Chronic (7) DVT prophylaxis Priority: Secondary Status: Acute - Respiratory Orders Oxygen / L per min (3) Smoking Cessation: Smoking cessation has been advised. For more information, call the [place] Tobacco Quit Line at 2-591-WADN-NOW. - Diet/Nutrition Diet/Nutrition Orders: Regular - Activity Activity Orders: Ambulate - Services Needed Following services are medically necessary services: Nursing, Home Health Aide, Physical Therapy - Transfer Medications Prescriptions: Nicotine Patch [Nicoderm] 14 mg TD DAILY #30 patch.td24 predniSONE [PredniSONE] 10 mg PO TAPER #21 tablet Home Medications: Roflumilast [Daliresp] 500 mcg PO DAILY 03/09/15 [History] clonazePAM [Klonopin] 2 mg PO TID #0 03/14/15 [History] Umeclidinium Gordon [Incruse Ellipta] 1 puff IH DAILY 04/03/16 [History] Ipratropium/Albuterol Neb [Duoneb] 3 ml IH [id number] PRN #60 inhsol 04/10/16 [Rx] Docusate [Colace] 100 mg PO BID PRN capsule 06/18/17 [Rx] Albuterol Sulfate [Albuterol Inhaler] 2 puff IH Q6HR PRN 06/10/18 [History] Alendronate Sodium 70 mg PO MO 06/10/18 [History] Aripiprazole [Abilify] 15 mg PO DAILY 06/10/18 [History] Atorvastatin [Lipitor] 10 mg PO HS 06/10/18 [History] Benztropine Mesylate 1 mg PO BID 06/10/18 [History] Budesonide/Formoterol 160/4.5 [Symbicort 160/4.5] 2 puff IH BID 06/10/18 [History] Calcium Carbonate/Vitamin D3 [Calcium 600 + Vit D Tablet] 2 tab PO DAILY 06/10/18 [History] Ergocalciferol (VITAMIN D2) [Vitamin D] 400 unit PO DAILY 06/10/18 [History] Gabapentin [Neurontin] 600 mg PO BID 06/10/18 [History] Levothyroxine Sodium 88 mcg PO QAM 06/10/18 [History] Mv-Mn/FA/Vit K/Lycop/Lut/Coq10 [Daily Multivitamin Capsule] 1 cap PO DAILY 06/10/18 [History] Nicotine Patch [Nicoderm] 14 mg TD DAILY #30 patch.td24 06/17/18 [Rx] predniSONE [PredniSONE] 10 mg PO TAPER #21 tablet 06/17/18 [Rx] Allergies/Adverse Reactions: Allergy/AdvReac Type Severity Reaction Status Date / Time sulfamethoxazole Allergy Hives Verified 06/10/18 10:37 [From Bactrim] trimethoprim [From Bactrim] Allergy Hives Verified 06/10/18 10:37 Certification: Further, I certify that my clinical findings support that this patient is homebound (i.e. absences from home require considerable and taxing effort and are for medical reasons or hoahaoism services or infrequently or short duration when for other reasons) because: Homebound Reason: Patient requires assistance of a person or device to safely leave home Attestation: My signature below is to certify that this patient is under my care and that I, or nurse practitioner, or a physician's assistant professor of theater working with me, has a [id number] encounter with this patient.
--- NOTE | 2018-06-17 14:12 | Discharge Summary ---
- NOTES TO OUTPATIENT PROVIDER Notes to Outpatient Provider: follow up with Dr. dotson in 1 week Date of Encounter: 06/17/18 Time of Encounter: 14:05 - Discharge Diagnosis (1) Acute exacerbation of chronic obstructive airways disease Priority: Primary Status: Acute (2) Acute on chronic respiratory failure with hypoxia and hypercapnia Priority: Secondary Status: Acute (3) Anxiety disorder Priority: Secondary Status: Chronic Qualifiers: Anxiety disorder type: unspecified anxiety disorder Qualified Code(s): F41.9 - Anxiety disorder, unspecified (4) Hypothyroidism Priority: Secondary Status: Chronic Qualifiers: Hypothyroidism type: acquired Qualified Code(s): E03.9 - Hypothyroidism, unspecified (5) Pneumonia Priority: Secondary Status: Acute Qualifiers: Pneumonia type: due to unspecified organism Laterality: bilateral Lung location: lower lobe of lung Qualified Code(s): J18.1 - Lobar pneumonia, unspecified organism (6) Tobacco abuse Priority: Secondary Status: Chronic (7) DVT prophylaxis Priority: Secondary Status: Acute Hospital course: "Ms. Ayala is a 58 year old female with a history of COPD requiring home oxygen who was admitted to the hospital for acute COPD exacerbation on 06/10/2018. She reports that she had been experiencing worsening shortness of breath for several days prior to hospital admission, with associated sinus congestion and cough with minimal sputum production. " patient presented with above presentation. and was started on IV steroids, nebulizer treatments and IV abx. respiratory viral panel was found to be positive for entero/rhino. CTA performed on admission- results below. pulmonology was consulted and recommendations followed. ABG showed acute on chronic hypoxic and hypercapnic respiratory failure adn she as placed on bipap. bipap qualification performed and she did not qualify for bipap. she completed 7 day course of IV abx which was the duration recommended by the pulmonary team. IV steroids was transitioned to PO steroids on discharge to complete a 14 day course total. Pt/Ot recs appreciated. CM adn SW on board and she was set up with [facility] and nursing along with PT. she is to follow up closely with manager urgent care Dr. dotson, nursing staff aware to obtain appointment for the patient prior to discharge. she understands to go to the nearest ED if her respiratory status declines again. . CTA chest: No evidence of pulmonary embolism. Severe centrilobular emphysema and COPD. Lung bases are limited by motion artifact, however, suggestion of multiple tree-in-bud and ground-glass nodules suggesting atypical pneumonia. Discharge discussed with: patient, nurse, social work, case management, consulta nt Time spent discussing smoking cessation with patient: more than 10 minutes - Time Spent with Patient Total time spent providing and/or coordinating discharge services: Greater than 30 minutes (45) - Discharge Medications Prescriptions: Nicotine Patch [Nicoderm] 14 mg TD DAILY #30 patch.td24 predniSONE [PredniSONE] 10 mg PO TAPER #21 tablet Home Medications: Roflumilast [Daliresp] 500 mcg PO DAILY 03/09/15 [History] clonazePAM [Klonopin] 2 mg PO TID #0 03/14/15 [History] Umeclidinium Henderson [Incruse Ellipta] 1 puff IH DAILY 04/03/16 [History] Ipratropium/Albuterol Neb [Duoneb] 3 ml IH [id number] PRN #60 inhsol 04/10/16 [Rx] Docusate [Colace] 100 mg PO BID PRN capsule 06/18/17 [Rx] Albuterol Sulfate [Albuterol Inhaler] 2 puff IH Q6HR PRN 06/10/18 [History] Alendronate Sodium 70 mg PO MO 06/10/18 [History] Aripiprazole [Abilify] 15 mg PO DAILY 06/10/18 [History] Atorvastatin [Lipitor] 10 mg PO HS 06/10/18 [History] Benztropine Mesylate 1 mg PO BID 06/10/18 [History] Budesonide/Formoterol 160/4.5 [Symbicort 160/4.5] 2 puff IH BID 06/10/18 [History] Calcium Carbonate/Vitamin D3 [Calcium 600 + Vit D Tablet] 2 tab PO DAILY 06/10/18 [History] Ergocalciferol (VITAMIN D2) [Vitamin D] 400 unit PO DAILY 06/10/18 [History] Gabapentin [Neurontin] 600 mg PO BID 06/10/18 [History] Levothyroxine Sodium 88 mcg PO QAM 06/10/18 [History] Mv-Mn/FA/Vit K/Lycop/Lut/Coq10 [Daily Multivitamin Capsule] 1 cap PO DAILY 06/10/18 [History] Nicotine Patch [Nicoderm] 14 mg TD DAILY #30 patch.td24 06/17/18 [Rx] predniSONE [PredniSONE] 10 mg PO TAPER #21 tablet 06/17/18 [Rx] Allergies/Adverse Reactions: Allergy/AdvReac Type Severity Reaction Status Date / Time sulfamethoxazole Allergy Hives Verified 06/10/18 10:37 [From Bactrim] trimethoprim [From Bactrim] Allergy Hives Verified 06/10/18 10:37 Date of admission: 06/11/18 10:22 Primary care physician: Westley Ayers MD Consults: 06/15/18 10:05 Consult to Pulmonology [CONS] Routine Consulting Provider: [facility] Reason for Consult: acute exacerbation of COPD due to entero/rhinovirus +/- atypical pneumonia. persistent hypercarbia Call Completed: Yes 06/15/18 11:26 Consult to Planning Consultant [CONS] Routine Reason for SW Consult: d/c planning, home health? bipap? 06/16/18 16:20 Consult to Physical Therapy [CONS] Routine Comment: Evaluate, develop and implement POC Reason for Consult: dispostion Does patient have active BEDREST order?: No Is patient medically & hemodynamically stable?: Yes Patient assessed for mobility or mobilized this visit?: Yes OT [Consult to Occupational Therapy] [CONS] Routine Comment: Evaluate, develop and implement POC Reason for Consult: disposition Does patient have active BEDREST order?: No Is patient medically & hemodynamically stable?: Yes Patient assessed for mobility or mobilized this visit?: Yes - Constitutional Vitals: Temp Pulse Resp BP Pulse Ox 98.2 F 96 18 124/66 97 06/17/18 11:56 06/17/18 11:56 06/17/18 11:56 06/17/18 11:56 06/17/18 11:56 Exam: General: alert, speaks in full sentences, no in distress Cardiovascular: RRR s1 and s2 Lungs: increased A/P diameter, decreased breath sounds bilaterally, faint wheezes in the posterior chest- improved Abdomen:Soft, non-tender, no rigidity. Extremities:No deformity or swelling, moving all extremities neurological: Axox 3, no focal deficit - Patient Status Disposition: Home Health Service Condition: Fair Functional capacity at discharge: independent ambulation Overall status at discharge: patient is progressing back to baseline - Discharge Instructions Follow Up With: Westley Ayers MD [Primary Care Provider] - (Office of DR. Ayers will call patient for an appt. as soon they will hear from ) - Diet and Activity Activity: as per physical therapy, increase activity as tolerated Diet: regular diet
== END 2018-06-17 16:48 | disposition home health service (06) | DRG 193 ==
LOC: EMEROOARM 10:32 → 2ANU 10:32 → SUATTDRO 13:57 → 2ANU 14:35
PROVIDERS: ADMIT Internal Medicine; ATTEND Internal Medicine

== ENCOUNTER 2019-01-21 19:33 | Inpatient (IN) ==
[2019-01-21] MEDS ORDERED: Azithromycin 500 MG in D5% in Water 250 ML IVPB ONE ×2 (20:10→20:51)
[2019-01-21] MEDS ORDERED: cefTRIAXone 2,000 MG in 0.9 % Sodium Chloride Mini Bag 100 ML IVPB ONE (20:10)
[2019-01-21] MEDS ORDERED: Ipratropium/Albuterol Neb 3 ML IH ONE (20:50)
[2019-01-21 21:40] LABS: Hemoglobin 12.6 g/dL (11.5-15.4); Mean Corpuscular HGB Conc 33.2 g/dL (31.6-35.5); Mean Corpuscular Hemoglobin 30.1 pg (28.0-33.3); Mean Corpuscular Volume 90.7 fL (83.0-100.0); Mean Platelet Volume 9.7 fL (9.4-12.4); Platelet Count 195 K/mcL (140-400); Red Blood Count 4.19 M/mcL (3.82-4.97); Red Cell Distribution Width 13.1 % (11.5-14.5); White Blood Count 7.1 K/mcL (4.3-11.1)
[2019-01-21 22:01] LABS: BUN/Creatinine Ratio 14 (6-26); Blood Urea Nitrogen 8 mg/dL (6-20); Calcium 9.1 mg/dL (8.6-10.3); Carbon Dioxide 26 mEq/L (23-29); Chloride 107 mEq/L (98-107); Glucose 101 mg/dL (70-105); Osmolality,Calculated 288 (280-300); Potassium 3.7 mEq/L (3.5-5.1); Sodium 140 mEq/L (136-145); eGFR For African Americans > 60 (> 60); eGFR For Non-African Americans > 60 (> 60)
[2019-01-21 22:02] LABS: Troponin I < 0.03 ng/mL (< 0.04)
[2019-01-22] MEDS ORDERED: Ondansetron 4 MG/2 ML VIAL IVP PRN (01:46)
[2019-01-22] MEDS ORDERED: Naloxone 0.4 MG/ML INJ IVP PRN (01:46)
[2019-01-22] MEDS ORDERED: Ipratropium/Albuterol Neb 3 ML IH PRN (01:48)
[2019-01-22] MEDS: Acetaminophen 325 MG TABLET PO PRN (02:24)
[2019-01-22] MEDS: Ipratropium/Albuterol Neb 3 ML IH SCH ×4 (03:28→21:54)
[2019-01-22 04:54] LABS: Basophils % 0.2 %; Hematocrit 37.3 % (35.3-44.9); Hemoglobin 12.1 g/dL (11.5-15.4); Immature Granulocytes % 0.2 % (0-4); Lymphocytes # 0.3 K/mcL (0.6-4.6); Lymphocytes % 5.7 %; Mean Corpuscular HGB Conc 32.4 g/dL (31.6-35.5); Mean Corpuscular Hemoglobin 29.7 pg (28.0-33.3); Mean Corpuscular Volume 91.4 fL (83.0-100.0); Mean Platelet Volume 9.9 fL (9.4-12.4); Monocytes # 0.1 K/mcL (0.0-1.3); Neutrophils # 4.6 K/mcL (1.6-8.9); Platelet Count 189 K/mcL (140-400); Red Blood Count 4.08 M/mcL (3.82-4.97); Red Cell Distribution Width 12.8 % (11.5-14.5); Segmented Neutrophils % 92.9 %; White Blood Count 4.9 K/mcL (4.3-11.1)
[2019-01-22 05:05] LABS: INR 0.9; Prothrombin Time 10.4 Seconds (9.4-12.1)
[2019-01-22 05:08] LABS: Activated Partial Thrombo Time 33.4 Seconds (26.0-36.0)
[2019-01-22 05:11] LABS: Alanine Aminotransferase 18 Units/L (7-52); Albumin 3.9 g/dL (3.5-5.7); Albumin/Globulin Ratio 1.9 (1.1-2.2); Alkaline Phosphatase 65 Units/L (34-104); Aspartate Amino Transferase 16 Units/L (13-39); BUN/Creatinine Ratio 14 (6-26); Bilirubin,Total 0.3 mg/dL (0.3-1.0); Blood Urea Nitrogen 9 mg/dL (6-20); Carbon Dioxide 25 mEq/L (23-29); Chloride 104 mEq/L (98-107); Cholesterol 152 mg/dL (< 200); Globulin 2.1 g/dL (2.4-3.5); Glucose 269 mg/dL (70-105); HDL Cholesterol 75 mg/dL (40-59); LDL Cholesterol,Calculated 71 mg/dL (0-99); Magnesium 2.1 mg/dL (1.6-2.6); Osmolality,Calculated 294 (280-300); Phosphorous 2.5 mg/dL (2.7-4.5); Potassium 4.4 mEq/L (3.5-5.1); Sodium 138 mEq/L (136-145); Triglycerides 30 mg/dL (< 150); eGFR For African Americans > 60 (> 60); eGFR For Non-African Americans > 60 (> 60)
[2019-01-22] MEDS ORDERED: MethylPREDNISolone 40 MG/ML VIAL IVP SCH (06:00)
[2019-01-22] MEDS: clonazePAM 1 MG TABLET PO SCH ×3 (08:04→20:46)
[2019-01-22] MEDS: Multivit/Ca/Min/Fe/FA 1 TAB TABLET PO SCH (08:04)
[2019-01-22] MEDS: Gabapentin 300 MG CAPSULE PO SCH ×2 (08:05→20:46)
[2019-01-22] MEDS: GuaiFENesin Liq 200 MG/10 ML UDC PO PRN ×2 (08:05→20:53)
[2019-01-22] MEDS: ARIPiprazole 5 MG TABLET PO SCH (08:05)
[2019-01-22] MEDS: Cholecalciferol (D-3) 1,000 UNIT (25MCG) TABLET PO SCH (08:05)
[2019-01-22] MEDS: Nicotine 14 MG PATCH.TD24 TD SCH (08:06)
[2019-01-22] MEDS ORDERED: (Roflumilast [Daliresp] 500 MCG) PO SCH (09:00)
[2019-01-22] MEDS ORDERED: cefTRIAXone 1,000 MG in Water for inj. (sterile) 10 ML IVP SCH (09:00)
[2019-01-22] MEDS ORDERED: Budesonide/Formoterol 160/4.5 1 PUFF INH IH SCH (10:00)
[2019-01-22] MEDS ORDERED: (Umeclidinium Bromide [Incruse Ellipta] 1 PUFF) IH SCH (10:00)
[2019-01-22] MEDS ORDERED: Azithromycin 500 MG in 0.9 % Sodium Chloride 250 ML IVPB SCH (12:00)
[2019-01-22] MEDS: predniSONE 20 MG TABLET PO SCH (12:52)
[2019-01-22] MEDS: Azithromycin 250 MG TABLET PO SCH (12:52)
[2019-01-23] MEDS: Ipratropium/Albuterol Neb 3 ML IH SCH ×4 (03:51→22:26)
[2019-01-23] MEDS: *HR* Enoxaparin 40 MG/0.4 ML SYRINGE SQ SCH (05:38)
[2019-01-23] MEDS: Acetaminophen 325 MG TABLET PO PRN (05:41)
[2019-01-23] MEDS: GuaiFENesin Liq 200 MG/10 ML UDC PO PRN ×4 (05:41→22:19)
[2019-01-23] MEDS: clonazePAM 1 MG TABLET PO SCH ×3 (08:29→22:09)
[2019-01-23] MEDS: predniSONE 20 MG TABLET PO SCH (08:30)
[2019-01-23] MEDS: Cholecalciferol (D-3) 1,000 UNIT (25MCG) TABLET PO SCH (08:30)
[2019-01-23] MEDS: Azithromycin 250 MG TABLET PO SCH (08:30)
[2019-01-23] MEDS: Gabapentin 300 MG CAPSULE PO SCH ×2 (08:30→22:09)
[2019-01-23] MEDS: Multivit/Ca/Min/Fe/FA 1 TAB TABLET PO SCH (08:30)
[2019-01-23] MEDS: ARIPiprazole 5 MG TABLET PO SCH (08:30)
[2019-01-23] MEDS: Nicotine 14 MG PATCH.TD24 TD SCH (08:30)
[2019-01-23] MEDS ORDERED: methylPREDNISolone 125 MG/2 ML VIAL IVP ONE (09:09)
[2019-01-24] MEDS: Ipratropium/Albuterol Neb 3 ML IH SCH ×4 (04:00→22:46)
[2019-01-24] MEDS: Acetaminophen 325 MG TABLET PO PRN (04:40)
[2019-01-24] MEDS: GuaiFENesin Liq 200 MG/10 ML UDC PO PRN ×3 (04:46→16:40)
[2019-01-24] MEDS: *HR* Enoxaparin 40 MG/0.4 ML SYRINGE SQ SCH (06:10)
[2019-01-24] MEDS: ARIPiprazole 5 MG TABLET PO SCH (09:10)
[2019-01-24] MEDS: Cholecalciferol (D-3) 1,000 UNIT (25MCG) TABLET PO SCH (09:11)
[2019-01-24] MEDS: Azithromycin 250 MG TABLET PO SCH (09:11)
[2019-01-24] MEDS: predniSONE 20 MG TABLET PO SCH (09:11)
[2019-01-24] MEDS: Nicotine 14 MG PATCH.TD24 TD SCH (09:11)
[2019-01-24] MEDS: Gabapentin 300 MG CAPSULE PO SCH ×2 (09:11→21:31)
[2019-01-24] MEDS: clonazePAM 1 MG TABLET PO SCH ×3 (09:11→21:31)
[2019-01-24] MEDS: Multivit/Ca/Min/Fe/FA 1 TAB TABLET PO SCH (09:11)
[2019-01-24 11:06] LABS: ABG Base Excess 8 mEq/L (-2 to 3); ABG HCO3 36 mEq/L (21-27); ABG Oxygen Saturation 91 % (95-98); ABG PCO2 65 mmHg (35-45); ABG PH 7.35 pH Units (7.32-7.45); ABG PO2 68 mmHg (85-104); ABG TCO2 38 mEq/L (20-26)
[2019-01-24 11:59] LABS: Hematocrit 38.5 % (35.3-44.9); Hemoglobin 12.2 g/dL (11.5-15.4); Mean Corpuscular HGB Conc 31.7 g/dL (31.6-35.5); Mean Corpuscular Hemoglobin 30.5 pg (28.0-33.3); Mean Corpuscular Volume 96.3 fL (83.0-100.0); Mean Platelet Volume 9.6 fL (9.4-12.4); Platelet Count 175 K/mcL (140-400); Red Cell Distribution Width 12.9 % (11.5-14.5)
[2019-01-24 12:02] LABS: White Blood Count 8.3 K/mcL (4.3-11.1)
[2019-01-24 12:16] LABS: BUN/Creatinine Ratio 33 (6-26); Blood Urea Nitrogen 19 mg/dL (6-20); Calcium 9.2 mg/dL (8.6-10.3); Carbon Dioxide 35 mEq/L (23-29); Chloride 99 mEq/L (98-107); Glucose 108 mg/dL (70-105); Osmolality,Calculated 291 (280-300); Potassium 4.2 mEq/L (3.5-5.1); Sodium 139 mEq/L (136-145); eGFR For African Americans > 60 (> 60); eGFR For Non-African Americans > 60 (> 60)
[2019-01-24] MEDS: Morphine Sulfate 2 MG/ML SYRINGE IVP PRN (12:16)
[2019-01-24] MEDS: MethylPREDNISolone 40 MG/ML VIAL IVP SCH ×2 (12:17→16:49)
[2019-01-24 14:49] LABS: Adenovirus Not Detected (Not Detect); Bordetella Pertussis Not Detected (Not Detect); Chlamydophila pneumoniae Not Detected (Not Detect); Coronavirus 229E Not Detected (Not Detect); Coronavirus HKU1 Not Detected (Not Detect); Coronavirus NL63 Not Detected (Not Detect); Coronavirus OC43 Not Detected (Not Detect); Human Metapneumovirus Not Detected (Not Detect); Human Rhinovirus/Enterovirus DETECTED (Not Detect); Influenza A Subtype 2009 H1 Not Detected (Not Detect); Influenza B Not Detected (Not Detect); Mycoplasma pneumoniae Not Detected (Not Detect); Parainfluenza Virus 1 Not Detected (Not Detect); Parainfluenza Virus 2 Not Detected (Not Detect); Parainfluenza Virus 3 Not Detected (Not Detect); Parainfluenza Virus 4 Not Detected (Not Detect); Respiratory Syncytial Virus Not Detected (Not Detect)
[2019-01-25] MEDS: MethylPREDNISolone 40 MG/ML VIAL IVP SCH ×4 (00:09→23:28)
[2019-01-25] MEDS ORDERED: NON-FORMULARY MEDICATION 1 EACH EACH (Alendronate Sodium 70 MG) PO SCH (01:48)
[2019-01-25] MEDS: Ipratropium/Albuterol Neb 3 ML IH SCH ×4 (04:26→23:36)
[2019-01-25] MEDS: *HR* Enoxaparin 40 MG/0.4 ML SYRINGE SQ SCH (05:39)
[2019-01-25] MEDS: GuaiFENesin Liq 200 MG/10 ML UDC PO PRN ×2 (10:12→20:52)
[2019-01-25] MEDS: Azithromycin 250 MG TABLET PO SCH (10:13)
[2019-01-25] MEDS: ARIPiprazole 5 MG TABLET PO SCH (10:13)
[2019-01-25] MEDS: Cholecalciferol (D-3) 1,000 UNIT (25MCG) TABLET PO SCH (10:13)
[2019-01-25] MEDS: Multivit/Ca/Min/Fe/FA 1 TAB TABLET PO SCH (10:13)
[2019-01-25] MEDS: clonazePAM 1 MG TABLET PO SCH ×3 (10:13→20:52)
[2019-01-25] MEDS: Gabapentin 300 MG CAPSULE PO SCH ×2 (10:13→20:52)
[2019-01-25] MEDS: Morphine Sulfate 2 MG/ML SYRINGE IVP PRN (10:15)
[2019-01-25] MEDS: Nicotine 14 MG PATCH.TD24 TD SCH (10:27)
[2019-01-25] MEDS: Morphine Sulfate Oral CONC 10 MG/0.5 ML ORAL.SYG SL PRN ×3 (16:08→23:28)
[2019-01-26] MEDS: Ipratropium/Albuterol Neb 3 ML IH SCH ×4 (04:33→22:21)
[2019-01-26 05:00] LABS: Hematocrit 37.1 % (35.3-44.9); Mean Corpuscular HGB Conc 32.3 g/dL (31.6-35.5); Mean Corpuscular Hemoglobin 30.1 pg (28.0-33.3); Mean Platelet Volume 9.9 fL (9.4-12.4); Platelet Count 187 K/mcL (140-400); Red Blood Count 3.99 M/mcL (3.82-4.97); Red Cell Distribution Width 12.5 % (11.5-14.5); White Blood Count 6.6 K/mcL (4.3-11.1)
[2019-01-26 05:22] LABS: BUN/Creatinine Ratio 36 (6-26); Blood Urea Nitrogen 20 mg/dL (6-20); Calcium 8.8 mg/dL (8.6-10.3); Carbon Dioxide 40 mEq/L (23-29); Chloride 98 mEq/L (98-107); Glucose 116 mg/dL (70-105); Osmolality,Calculated 294 (280-300); Potassium 4.4 mEq/L (3.5-5.1); Sodium 140 mEq/L (136-145); eGFR For African Americans > 60 (> 60); eGFR For Non-African Americans > 60 (> 60)
[2019-01-26] MEDS: Gabapentin 300 MG CAPSULE PO SCH ×2 (07:56→21:23)
[2019-01-26] MEDS: clonazePAM 1 MG TABLET PO SCH ×3 (07:57→21:23)
[2019-01-26] MEDS: *HR* Enoxaparin 40 MG/0.4 ML SYRINGE SQ SCH (07:57)
[2019-01-26] MEDS: Nicotine 14 MG PATCH.TD24 TD SCH (07:57)
[2019-01-26] MEDS: Multivit/Ca/Min/Fe/FA 1 TAB TABLET PO SCH (07:57)
[2019-01-26] MEDS: MethylPREDNISolone 40 MG/ML VIAL IVP SCH (07:57)
[2019-01-26] MEDS: ARIPiprazole 5 MG TABLET PO SCH (07:57)
[2019-01-26] MEDS: Cholecalciferol (D-3) 1,000 UNIT (25MCG) TABLET PO SCH (07:57)
[2019-01-26] MEDS: GuaiFENesin Liq 200 MG/10 ML UDC PO PRN ×2 (12:04→21:23)
[2019-01-26] MEDS: Morphine Sulfate Oral CONC 10 MG/0.5 ML ORAL.SYG SL PRN ×3 (12:04→21:23)
[2019-01-26] MEDS: predniSONE 20 MG TABLET PO SCH (15:44)
[2019-01-27] MEDS: Ipratropium/Albuterol Neb 3 ML IH SCH ×4 (04:38→22:29)
[2019-01-27 04:40] LABS: Hematocrit 35.2 % (35.3-44.9); Hemoglobin 11.4 g/dL (11.5-15.4); Mean Corpuscular HGB Conc 32.4 g/dL (31.6-35.5); Mean Corpuscular Hemoglobin 30.1 pg (28.0-33.3); Mean Corpuscular Volume 92.9 fL (83.0-100.0); Mean Platelet Volume 9.8 fL (9.4-12.4); Platelet Count 180 K/mcL (140-400); Red Blood Count 3.79 M/mcL (3.82-4.97); Red Cell Distribution Width 12.5 % (11.5-14.5); White Blood Count 7.3 K/mcL (4.3-11.1)
[2019-01-27 04:59] LABS: BUN/Creatinine Ratio 41 (6-26); Blood Urea Nitrogen 26 mg/dL (6-20); Calcium 8.5 mg/dL (8.6-10.3); Carbon Dioxide 38 mEq/L (23-29); Chloride 99 mEq/L (98-107); Glucose 106 mg/dL (70-105); Osmolality,Calculated 293 (280-300); Potassium 4.4 mEq/L (3.5-5.1); Sodium 139 mEq/L (136-145); eGFR For African Americans > 60 (> 60); eGFR For Non-African Americans > 60 (> 60)
[2019-01-27] MEDS: *HR* Enoxaparin 40 MG/0.4 ML SYRINGE SQ SCH (06:53)
[2019-01-27] MEDS: Multivit/Ca/Min/Fe/FA 1 TAB TABLET PO SCH (09:45)
[2019-01-27] MEDS: predniSONE 20 MG TABLET PO SCH ×2 (09:45→18:13)
[2019-01-27] MEDS: GuaiFENesin Liq 200 MG/10 ML UDC PO PRN ×3 (09:46→20:29)
[2019-01-27] MEDS: clonazePAM 1 MG TABLET PO SCH ×3 (09:46→20:19)
[2019-01-27] MEDS: Gabapentin 300 MG CAPSULE PO SCH ×2 (09:46→20:19)
[2019-01-27] MEDS: Nicotine 14 MG PATCH.TD24 TD SCH (09:46)
[2019-01-27] MEDS: ARIPiprazole 5 MG TABLET PO SCH (09:46)
[2019-01-27] MEDS: Cholecalciferol (D-3) 1,000 UNIT (25MCG) TABLET PO SCH (09:46)
[2019-01-27] MEDS: Morphine Sulfate Oral CONC 10 MG/0.5 ML ORAL.SYG SL PRN (15:05)
[2019-01-27 16:23] LABS: ABG Base Excess 11 mEq/L (-2 to 3); ABG HCO3 39 mEq/L (21-27); ABG Oxygen Saturation 92 % (95-98); ABG PCO2 67 mmHg (35-45); ABG PH 7.37 pH Units (7.32-7.45); ABG PO2 69 mmHg (85-104); ABG TCO2 41 mEq/L (20-26)
[2019-01-27] MEDS ORDERED: Benzonatate 100 MG CAPSULE PO PRN (17:26)
[2019-01-28] MEDS: Ipratropium/Albuterol Neb 3 ML IH SCH ×4 (04:14→23:07)
[2019-01-28] MEDS: *HR* Enoxaparin 40 MG/0.4 ML SYRINGE SQ SCH (05:55)
[2019-01-28] MEDS: ARIPiprazole 5 MG TABLET PO SCH (08:08)
[2019-01-28] MEDS: predniSONE 20 MG TABLET PO SCH (08:08)
[2019-01-28] MEDS: Multivit/Ca/Min/Fe/FA 1 TAB TABLET PO SCH (08:08)
[2019-01-28] MEDS: Cholecalciferol (D-3) 1,000 UNIT (25MCG) TABLET PO SCH (08:08)
[2019-01-28] MEDS: clonazePAM 1 MG TABLET PO SCH ×3 (08:08→20:36)
[2019-01-28] MEDS: Gabapentin 300 MG CAPSULE PO SCH ×2 (08:08→20:37)
[2019-01-28] MEDS: GuaiFENesin Liq 200 MG/10 ML UDC PO PRN ×3 (08:09→20:39)
[2019-01-28] MEDS: Nicotine 14 MG PATCH.TD24 TD SCH (08:09)
[2019-01-28] MEDS: Albuterol 2.5 MG/3 ML NEBULIZER IH PRN (13:15)
[2019-01-28] MEDS: Acetaminophen 325 MG TABLET PO PRN (17:02)
[2019-01-29] MEDS: Ipratropium/Albuterol Neb 3 ML IH SCH ×4 (04:16→22:12)
[2019-01-29] MEDS: *HR* Enoxaparin 40 MG/0.4 ML SYRINGE SQ SCH (05:16)
[2019-01-29 06:38] LABS: Hematocrit 35.7 % (35.3-44.9); Hemoglobin 11.6 g/dL (11.5-15.4); Mean Corpuscular HGB Conc 32.5 g/dL (31.6-35.5); Mean Corpuscular Hemoglobin 30.9 pg (28.0-33.3); Mean Corpuscular Volume 95.2 fL (83.0-100.0); Mean Platelet Volume 9.4 fL (9.4-12.4); Platelet Count 173 K/mcL (140-400); Red Blood Count 3.75 M/mcL (3.82-4.97); Red Cell Distribution Width 12.7 % (11.5-14.5); White Blood Count 5.8 K/mcL (4.3-11.1)
[2019-01-29 07:05] LABS: BUN/Creatinine Ratio 52 (6-26); Blood Urea Nitrogen 26 mg/dL (6-20); Calcium 8.6 mg/dL (8.6-10.3); Carbon Dioxide 41 mEq/L (23-29); Chloride 98 mEq/L (98-107); Glucose 87 mg/dL (70-105); Osmolality,Calculated 300 (280-300); Potassium 4.2 mEq/L (3.5-5.1); Sodium 143 mEq/L (136-145); eGFR For African Americans > 60 (> 60); eGFR For Non-African Americans > 60 (> 60)
[2019-01-29] MEDS: Multivit/Ca/Min/Fe/FA 1 TAB TABLET PO SCH (09:09)
[2019-01-29] MEDS: clonazePAM 1 MG TABLET PO SCH ×3 (09:10→20:48)
[2019-01-29] MEDS: Nicotine 14 MG PATCH.TD24 TD SCH (09:10)
[2019-01-29] MEDS: predniSONE 20 MG TABLET PO SCH (09:10)
[2019-01-29] MEDS: ARIPiprazole 5 MG TABLET PO SCH (09:10)
[2019-01-29] MEDS: GuaiFENesin Liq 200 MG/10 ML UDC PO PRN ×2 (09:10→16:46)
[2019-01-29] MEDS: Cholecalciferol (D-3) 1,000 UNIT (25MCG) TABLET PO SCH (09:10)
[2019-01-29] MEDS: Gabapentin 300 MG CAPSULE PO SCH ×2 (09:10→20:48)
[2019-01-29] MEDS: Morphine Sulfate Oral CONC 10 MG/0.5 ML ORAL.SYG SL PRN (09:24)
[2019-01-29] MEDS: Albuterol 2.5 MG/3 ML NEBULIZER IH PRN (09:27)
[2019-01-29] MEDS ORDERED: Azithromycin 500 MG in D5% in Water 250 ML IVPB SCH (11:00)
[2019-01-29] MEDS: Budesonide/Formoterol 80/4.5 1 PUFF INH IH SCH ×2 (11:22→22:12)
[2019-01-29] MEDS: Azithromycin 250 MG TABLET PO SCH (12:15)
[2019-01-30] MEDS: Ipratropium/Albuterol Neb 3 ML IH SCH ×4 (04:21→22:33)
[2019-01-30] MEDS: *HR* Enoxaparin 40 MG/0.4 ML SYRINGE SQ SCH (05:37)
[2019-01-30 06:23] LABS: Hematocrit 37.1 % (35.3-44.9); Mean Corpuscular HGB Conc 32.3 g/dL (31.6-35.5); Mean Corpuscular Hemoglobin 30.1 pg (28.0-33.3); Mean Platelet Volume 9.2 fL (9.4-12.4); Platelet Count 166 K/mcL (140-400); Red Blood Count 3.99 M/mcL (3.82-4.97); Red Cell Distribution Width 12.6 % (11.5-14.5); White Blood Count 6.2 K/mcL (4.3-11.1)
[2019-01-30 06:48] LABS: BUN/Creatinine Ratio 47 (6-26); Blood Urea Nitrogen 24 mg/dL (6-20); Calcium 8.7 mg/dL (8.6-10.3); Carbon Dioxide 41 mEq/L (23-29); Chloride 97 mEq/L (98-107); Glucose 78 mg/dL (70-105); Osmolality,Calculated 295 (280-300); Potassium 4.1 mEq/L (3.5-5.1); Sodium 141 mEq/L (136-145); eGFR For African Americans > 60 (> 60); eGFR For Non-African Americans > 60 (> 60)
[2019-01-30] MEDS: clonazePAM 1 MG TABLET PO SCH ×3 (08:55→20:28)
[2019-01-30] MEDS: Gabapentin 300 MG CAPSULE PO SCH ×2 (08:55→20:28)
[2019-01-30] MEDS: Cholecalciferol (D-3) 1,000 UNIT (25MCG) TABLET PO SCH (08:55)
[2019-01-30] MEDS: Azithromycin 250 MG TABLET PO SCH (08:55)
[2019-01-30] MEDS: predniSONE 20 MG TABLET PO SCH (08:55)
[2019-01-30] MEDS: ARIPiprazole 5 MG TABLET PO SCH (08:55)
[2019-01-30] MEDS: Multivit/Ca/Min/Fe/FA 1 TAB TABLET PO SCH (08:56)
[2019-01-30] MEDS: Nicotine 14 MG PATCH.TD24 TD SCH (08:56)
[2019-01-30] MEDS: GuaiFENesin Liq 200 MG/10 ML UDC PO PRN ×2 (09:07→20:36)
[2019-01-30] MEDS: Budesonide/Formoterol 80/4.5 1 PUFF INH IH SCH ×2 (10:49→22:32)
[2019-01-30] MEDS: Acetaminophen 325 MG TABLET PO PRN (20:35)
[2019-01-31] MEDS: Ipratropium/Albuterol Neb 3 ML IH SCH ×4 (04:18→22:17)
[2019-01-31] MEDS: *HR* Enoxaparin 40 MG/0.4 ML SYRINGE SQ SCH (06:34)
[2019-01-31] MEDS: ARIPiprazole 5 MG TABLET PO SCH (09:51)
[2019-01-31] MEDS: Cholecalciferol (D-3) 1,000 UNIT (25MCG) TABLET PO SCH (09:51)
[2019-01-31] MEDS: Multivit/Ca/Min/Fe/FA 1 TAB TABLET PO SCH (09:51)
[2019-01-31] MEDS: clonazePAM 1 MG TABLET PO SCH ×3 (09:51→21:16)
[2019-01-31] MEDS: Gabapentin 300 MG CAPSULE PO SCH ×2 (09:51→21:16)
[2019-01-31] MEDS: predniSONE 20 MG TABLET PO SCH (09:51)
[2019-01-31] MEDS: Nicotine 14 MG PATCH.TD24 TD SCH (09:52)
[2019-01-31] MEDS: Azithromycin 250 MG TABLET PO SCH (09:52)
[2019-01-31] MEDS: GuaiFENesin Liq 200 MG/10 ML UDC PO PRN ×2 (11:29→21:22)
[2019-01-31] MEDS: Budesonide/Formoterol 80/4.5 1 PUFF INH IH SCH ×2 (11:35→22:17)
[2019-02-01] MEDS: Ipratropium/Albuterol Neb 3 ML IH SCH ×2 (03:20→10:21)
[2019-02-01] MEDS: *HR* Enoxaparin 40 MG/0.4 ML SYRINGE SQ SCH (06:40)
[2019-02-01 08:05] VITALS: BP 95/55
[2019-02-01] MEDS: ARIPiprazole 5 MG TABLET PO SCH (08:39)
[2019-02-01] MEDS: Gabapentin 300 MG CAPSULE PO SCH (08:39)
[2019-02-01] MEDS: Azithromycin 250 MG TABLET PO SCH (08:39)
[2019-02-01] MEDS: predniSONE 20 MG TABLET PO SCH (08:40)
[2019-02-01] MEDS: clonazePAM 1 MG TABLET PO SCH (08:40)
[2019-02-01] MEDS: Cholecalciferol (D-3) 1,000 UNIT (25MCG) TABLET PO SCH (08:40)
[2019-02-01] MEDS: Nicotine 14 MG PATCH.TD24 TD SCH (08:40)
[2019-02-01] MEDS: Multivit/Ca/Min/Fe/FA 1 TAB TABLET PO SCH (08:40)
[2019-02-01] MEDS: Budesonide/Formoterol 80/4.5 1 PUFF INH IH SCH (10:21)
[2019-02-01] MEDS: Acetaminophen 325 MG TABLET PO PRN (11:03)
== END 2019-02-01 11:25 | disposition home health service (06) | DRG 190 ==
LOC: 2ANU 19:33 → EMEROOARM 19:33 → 2ANU 23:30 → SUATTDRO 01-23 21:11
PROVIDERS: ADMIT Internal Medicine; ATTEND Internal Medicine

== ENCOUNTER 2019-11-13 15:01 | Inpatient (IN) ==
[2019-11-13] MEDS ORDERED: cefTRIAXone 1,000 MG in Water for inj. (sterile) 10 ML IVP ONE (15:08)
[2019-11-13] MEDS ORDERED: Azithromycin 500 MG in 0.9 % Sodium Chloride 250 ML IVPB ONE (15:08)
[2019-11-13] MEDS ORDERED: methylPREDNISolone 125 MG/2 ML VIAL IVP ONE (15:10)
[2019-11-13] MEDS ORDERED: 0.9 % Sodium Chloride 1,000 ML IVC ONE (15:17)
[2019-11-13] MEDS ORDERED: Ipratropium/Albuterol Neb 3 ML IH ONE (15:17)
[2019-11-13 15:27] LABS: ABG Base Excess 3 mEq/L (-2 to 3); ABG HCO3 32 mEq/L (21-27); ABG Oxygen Saturation 100 % (95-98); ABG PCO2 69 mmHg (35-45); ABG PH 7.28 pH Units (7.32-7.45); ABG PO2 347 mmHg (85-104); ABG TCO2 34 mEq/L (20-26)
[2019-11-13 15:30] LABS: Basophils % 0.2 %; Eosinophils # 0.1 K/mcL (0.0-0.6); Eosinophils % 0.6 %; Hematocrit 41.3 % (35.3-44.9); Hemoglobin 13.2 g/dL (11.5-15.4); Immature Granulocytes % 0.3 % (0-4); Lymphocytes # 0.7 K/mcL (0.6-4.6); Lymphocytes % 7.5 %; Mean Corpuscular Hemoglobin 29.8 pg (28.0-33.3); Mean Corpuscular Volume 93.2 fL (83.0-100.0); Mean Platelet Volume 9.8 fL (9.4-12.4); Monocytes # 0.5 K/mcL (0.0-1.3); Monocytes % 5.7 %; Neutrophils # 7.4 K/mcL (1.6-8.9); Platelet Count 209 K/mcL (140-400); Red Blood Count 4.43 M/mcL (3.82-4.97); Segmented Neutrophils % 85.7 %; White Blood Count 8.6 K/mcL (4.3-11.1)
[2019-11-13 15:33] LABS: Bilirubin,Urine Negative (Negative); Blood,Urine Negative (Negative); Clarity,Urine Clear (Clear); Color,Urine Yellow (Yellow); Glucose,Urine (UA) Normal (Normal); Ketones,Urine Negative (Negative); Leukocyte Esterase,Urine Negative (Negative); Nitrite,Urine Negative (Negative); PH,Urine 5.5 pH Units (5.0-8.0); Protein,Urine Negative (Neg-Trace); Specific Gravity,Urine 1.014 (1.010-1.025); Urobilinogen,Urine Normal (Normal)
[2019-11-13 15:44] LABS: INR 0.9; Prothrombin Time 10.6 Seconds (9.4-12.1)
[2019-11-13 15:46] LABS: Activated Partial Thrombo Time 30.1 Seconds (26.0-36.0)
[2019-11-13 15:59] LABS: Alanine Aminotransferase 27 Units/L (7-52); Albumin 4.3 g/dL (3.5-5.7); Alkaline Phosphatase 68 Units/L (34-104); Aspartate Amino Transferase 26 Units/L (13-39); BUN/Creatinine Ratio 18 (6-26); Bilirubin,Direct 0.1 mg/dL (0.0-0.2); Bilirubin,Indirect 0.3 mg/dL (0.0-1.0); Bilirubin,Total 0.4 mg/dL (0.3-1.0); Blood Urea Nitrogen 11 mg/dL (6-20); C-Reactive Protein < 5 mg/L (Less than 10); Carbon Dioxide 30 mEq/L (23-29); Chloride 101 mEq/L (98-107); Globulin 2.2 g/dL (2.4-3.5); Glucose 138 mg/dL (70-105); Lactate Dehydrogenase 155 Units/L (140-271); Osmolality,Calculated 284 (280-300); Phosphorous 2.5 mg/dL (2.7-4.5); Potassium 4.6 mEq/L (3.5-5.1); Sodium 136 mEq/L (136-145); Total Protein 6.5 g/dL (6.4-8.9); Troponin I < 0.03 ng/mL (< 0.04); eGFR For African Americans > 60 (> 60); eGFR For Non-African Americans > 60 (> 60)
[2019-11-13 16:16] LABS: Ferritin 50 ng/mL (10-120)
[2019-11-13 16:31] LABS: Acetaminophen < 10 mcg/mL (10-20); Ethanol < 10 mg/dL (Less than 10); Salicylate < 2.5 mg/dL (15.0-30.0)
[2019-11-13 16:45] LABS: Thyroid Stimulating Hormone 0.045 mcIU/mL (0.340-5.600)
[2019-11-13 17:41] LABS: Amphetamine Screen,Urine Negative ng/mL (Cutoff=1000); Barbiturate Screen,Urine Negative ng/mL (Cutoff=200); Benzodiazepines Screen,Urine Negative ng/mL (Cutoff=200); Cannabinoid Screen,Urine Negative ng/mL (Cutoff = 50); Cocaine Screen,Urine Positive ng/mL (Cutoff= 300); Opiate Screen,Urine Positive ng/mL (Cutoff=300); Phencyclidine Screen,Urine Negative ng/mL (Cutoff=25)
[2019-11-13] MEDS ORDERED: Naloxone 0.4 MG/ML INJ IVP ONE (18:36)
[2019-11-13] MEDS: Ipratropium/Albuterol Neb 3 ML IH SCH (21:51)
[2019-11-13 22:10] LABS: ABG Base Excess 4 mEq/L (-2 to 3); ABG HCO3 33 mEq/L (21-27); ABG Oxygen Saturation 100 % (95-98); ABG PCO2 68 mmHg (35-45); ABG PH 7.29 pH Units (7.32-7.45); ABG PO2 287 mmHg (85-104); ABG TCO2 35 mEq/L (20-26)
[2019-11-13] MEDS: Nicotine 21 MG PATCH.TD24 TD SCH (22:40)
[2019-11-13] MEDS: *HR* Heparin 5,000 UNIT/ML VIAL SQ SCH (22:41)
[2019-11-14] MEDS: MethylPREDNISolone 40 MG/ML VIAL IVP SCH ×4 (00:53→17:11)
[2019-11-14 01:32] LABS: Segmented Neutrophils % 88.3 %
[2019-11-14 01:35] LABS: White Blood Count 7.4 K/mcL (4.3-11.1)
[2019-11-14 01:36] LABS: Neutrophils # 6.5 K/mcL (1.6-8.9)
[2019-11-14 01:37] LABS: Hematocrit 38.8 % (35.3-44.9); Hemoglobin 12.7 g/dL (11.5-15.4); Mean Corpuscular HGB Conc 32.7 g/dL (31.6-35.5); Mean Corpuscular Hemoglobin 29.9 pg (28.0-33.3); Mean Corpuscular Volume 91.3 fL (83.0-100.0); Mean Platelet Volume 10.3 fL (9.4-12.4); Platelet Count 164 K/mcL (140-400); Red Blood Count 4.25 M/mcL (3.82-4.97); Red Cell Distribution Width 11.9 % (11.5-14.5)
[2019-11-14 01:38] LABS: Basophils % 0.1 %; Eosinophils % 0.1 %; Lymphocytes # 0.6 K/mcL (0.6-4.6); Lymphocytes % 8.2 %; Monocytes # 0.2 K/mcL (0.0-1.3); Monocytes % 2.3 %
[2019-11-14 01:48] LABS: Alanine Aminotransferase 47 Units/L (7-52); Albumin 3.8 g/dL (3.5-5.7); Albumin/Globulin Ratio 1.7 (1.1-2.2); Alkaline Phosphatase 65 Units/L (34-104); Aspartate Amino Transferase 66 Units/L (13-39); BUN/Creatinine Ratio 20 (6-26); Bilirubin,Total 0.5 mg/dL (0.3-1.0); Blood Urea Nitrogen 11 mg/dL (6-20); Calcium 8.3 mg/dL (8.6-10.3); Carbon Dioxide 24 mEq/L (23-29); Chloride 106 mEq/L (98-107); Globulin 2.3 g/dL (2.4-3.5); Glucose 139 mg/dL (70-105); Osmolality,Calculated 286 (280-300); Sodium 137 mEq/L (136-145); Total Protein 6.1 g/dL (6.4-8.9); eGFR For African Americans > 60 (> 60); eGFR For Non-African Americans > 60 (> 60)
[2019-11-14 01:57] LABS: Platelet Estimate Normal (Normal)
[2019-11-14] MEDS: Ipratropium/Albuterol Neb 3 ML IH SCH ×4 (04:24→22:00)
[2019-11-14] MEDS: *HR* Heparin 5,000 UNIT/ML VIAL SQ SCH ×3 (05:11→20:46)
[2019-11-14 07:48] LABS: Acinetobacter baumannii by PCR Not Detected (Not Detect); Candida albicans by PCR Not Detected (Not Detect); Candida glabrata by PCR Not Detected (Not Detect); Candida krusei by PCR Not Detected (Not Detect); Candida parapsilosis by PCR Not Detected (Not Detect); Candida tropicalis by PCR Not Detected (Not Detect); Enterobacter cloacae Cmplx PCR Not Detected (Not Detect); Enterobacteriaceae by PCR Not Detected (Not Detect); Enterococcus by PCR Not Detected (Not Detect); Escherichia coli by PCR Not Detected (Not Detect); Klebsiella oxytoca by PCR Not Detected (Not Detect); Klebsiella pneumoniae by PCR Not Detected (Not Detect); Proteus by PCR Not Detected (Not Detect); Pseudomonas aeruginosa by PCR Not Detected (Not Detect); Serratia marcescens by PCR Not Detected (Not Detect); Staphylococcus aureus by PCR Not Detected (Not Detect); Staphylococcus by PCR Not Detected (Not Detect); Streptococcus agalactiae(B)PCR Not Detected (Not Detect); Streptococcus pneumoniae PCR DETECTED (Not Detect); Streptococcus pyogenes (A) PCR Not Detected (Not Detect)
[2019-11-14] MEDS: Azithromycin 500 MG in 0.9 % Sodium Chloride 250 ML IVPB SCH (07:59)
[2019-11-14] MEDS: Nicotine 21 MG PATCH.TD24 TD SCH (07:59)
[2019-11-14] MEDS ORDERED: cefTRIAXone 1,000 MG in Water for inj. (sterile) 10 ML IVP SCH (09:00)
[2019-11-14] MEDS: cefTRIAXone 2,000 MG in Water for inj. (sterile) 20 ML IVP SCH (12:16)
[2019-11-14] MEDS: Acetaminophen 325 MG TABLET PO PRN (21:50)
[2019-11-15] MEDS: MethylPREDNISolone 40 MG/ML VIAL IVP SCH ×4 (00:43→17:28)
[2019-11-15 02:27] LABS: Hematocrit 34.8 % (35.3-44.9); Immature Granulocytes % 0.5 % (0-4); Lymphocytes # 0.5 K/mcL (0.6-4.6); Lymphocytes % 10.5 %; Mean Corpuscular HGB Conc 32.2 g/dL (31.6-35.5); Mean Corpuscular Hemoglobin 29.4 pg (28.0-33.3); Mean Corpuscular Volume 91.3 fL (83.0-100.0); Monocytes # 0.3 K/mcL (0.0-1.3); Monocytes % 6.8 %; Neutrophils # 3.6 K/mcL (1.6-8.9); Platelet Count 163 K/mcL (140-400); Red Blood Count 3.81 M/mcL (3.82-4.97); Red Cell Distribution Width 11.9 % (11.5-14.5); Segmented Neutrophils % 82.2 %; White Blood Count 4.4 K/mcL (4.3-11.1)
[2019-11-15 02:29] LABS: Hemoglobin 11.2 g/dL (11.5-15.4)
[2019-11-15] MEDS: Ipratropium/Albuterol Neb 3 ML IH SCH ×4 (03:51→22:05)
[2019-11-15 04:46] LABS: BUN/Creatinine Ratio 32 (6-26); Blood Urea Nitrogen 18 mg/dL (6-20); Calcium 8.2 mg/dL (8.6-10.3); Carbon Dioxide 26 mEq/L (23-29); Chloride 106 mEq/L (98-107); Glucose 149 mg/dL (70-105); Osmolality,Calculated 293 (280-300); Sodium 139 mEq/L (136-145); eGFR For African Americans > 60 (> 60); eGFR For Non-African Americans > 60 (> 60)
[2019-11-15] MEDS: *HR* Heparin 5,000 UNIT/ML VIAL SQ SCH ×3 (06:06→21:40)
[2019-11-15] MEDS: cefTRIAXone 2,000 MG in Water for inj. (sterile) 20 ML IVP SCH (09:11)
[2019-11-15] MEDS: Azithromycin 500 MG in 0.9 % Sodium Chloride 250 ML IVPB SCH (09:12)
[2019-11-15] MEDS: Nicotine 21 MG PATCH.TD24 TD SCH (09:12)
[2019-11-15] MEDS: Acetaminophen 325 MG TABLET PO PRN (17:33)
[2019-11-16] MEDS: MethylPREDNISolone 40 MG/ML VIAL IVP SCH ×2 (00:49→05:57)
[2019-11-16 01:38] LABS: Hematocrit 34.6 % (35.3-44.9); Hemoglobin 11.3 g/dL (11.5-15.4); Immature Granulocytes % 0.2 % (0-4); Lymphocytes # 0.4 K/mcL (0.6-4.6); Mean Corpuscular HGB Conc 32.7 g/dL (31.6-35.5); Mean Corpuscular Hemoglobin 30.2 pg (28.0-33.3); Mean Corpuscular Volume 92.5 fL (83.0-100.0); Mean Platelet Volume 10.5 fL (9.4-12.4); Monocytes # 0.2 K/mcL (0.0-1.3); Monocytes % 4.8 %; Neutrophils # 3.6 K/mcL (1.6-8.9); Platelet Count 203 K/mcL (140-400); Red Blood Count 3.74 M/mcL (3.82-4.97); Red Cell Distribution Width 12.1 % (11.5-14.5); White Blood Count 4.2 K/mcL (4.3-11.1)
[2019-11-16 02:04] LABS: BUN/Creatinine Ratio 44 (6-26); Blood Urea Nitrogen 23 mg/dL (6-20); Calcium 8.2 mg/dL (8.6-10.3); Carbon Dioxide 27 mEq/L (23-29); Chloride 106 mEq/L (98-107); Glucose 135 mg/dL (70-105); Osmolality,Calculated 294 (280-300); Potassium 4.3 mEq/L (3.5-5.1); Sodium 139 mEq/L (136-145); eGFR For African Americans > 60 (> 60); eGFR For Non-African Americans > 60 (> 60)
[2019-11-16] MEDS: Ipratropium/Albuterol Neb 3 ML IH SCH ×2 (03:49→10:25)
[2019-11-16] MEDS: *HR* Heparin 5,000 UNIT/ML VIAL SQ SCH (05:58)
[2019-11-16 08:27] VITALS: BP 103/62
[2019-11-16] MEDS ORDERED: 0.9 % Sodium Chloride 250 ML ONE (09:21)
[2019-11-16] MEDS: cefTRIAXone 2,000 MG in Water for inj. (sterile) 20 ML IVP SCH (09:25)
[2019-11-16] MEDS: Nicotine 21 MG PATCH.TD24 TD SCH (09:26)
== END 2019-11-16 12:23 | disposition home or self-care (01) | DRG 896 ==
LOC: 2ANU 15:01 → EMEROOARM 15:01 → 2ANU 20:07
PROVIDERS: ADMIT Student in an Organized Health Care Education/Training Program; ATTEND Student in an Organized Health Care Education/Training Program

== ENCOUNTER 2020-07-09 06:31 | Inpatient (IN) ==
[2020-07-09] MEDS ORDERED: Ipratropium/Albuterol Neb 3 ML IH ONE ×2 (06:47→16:34)
[2020-07-09] MEDS ORDERED: methylPREDNISolone 125 MG/2 ML VIAL IVP ONE (06:47)
[2020-07-09 06:57] LABS: ABG Base Excess 4 mEq/L (-2 to 3); ABG HCO3 34 mEq/L (21-27); ABG Oxygen Saturation 97 % (95-98); ABG PCO2 83 mmHg (35-45); ABG PH 7.23 pH Units (7.32-7.45); ABG PO2 112 mmHg (85-104); ABG TCO2 37 mEq/L (20-26)
[2020-07-09] MEDS ORDERED: Albuterol Neb 1.25 MG/3 ML VIAL IH ONE (07:02)
[2020-07-09 07:15] LABS: Basophils % 0.4 %; Eosinophils # 0.2 K/mcL (0.0-0.6); Eosinophils % 1.5 %; Hematocrit 40.9 % (35.3-44.9); Hemoglobin 13.1 g/dL (11.5-15.4); Immature Granulocytes % 0.3 % (0-4); Lymphocytes # 1.8 K/mcL (0.6-4.6); Lymphocytes % 16.7 %; Mean Corpuscular Volume 93.8 fL (83.0-100.0); Mean Platelet Volume 9.8 fL (9.4-12.4); Neutrophils # 7.7 K/mcL (1.6-8.9); Platelet Count 259 K/mcL (140-400); Red Blood Count 4.36 M/mcL (3.82-4.97); Red Cell Distribution Width 11.8 % (11.5-14.5); Segmented Neutrophils % 72.1 %; White Blood Count 10.7 K/mcL (4.3-11.1)
[2020-07-09 07:34] LABS: BUN/Creatinine Ratio 14 (6-26); Blood Urea Nitrogen 8 mg/dL (8-23); Calcium 8.8 mg/dL (8.6-10.3); Carbon Dioxide 34 mEq/L (23-29); Chloride 102 mEq/L (98-107); Glucose 117 mg/dL (70-105); Osmolality,Calculated 291 (280-300); Potassium 3.8 mEq/L (3.5-5.1); Sodium 141 mEq/L (136-145); eGFR For African Americans > 60 (> 60); eGFR For Non-African Americans > 60 (> 60)
[2020-07-09 07:35] LABS: Troponin I < 0.03 ng/mL (< 0.04)
[2020-07-09] MEDS ORDERED: 0.9 % Sodium Chloride 1,000 ML IVC ONE (08:02)
[2020-07-09 08:31] LABS: Adenovirus Not Detected (Not Detect); Bordetella Pertussis Not Detected (Not Detect); Chlamydophila pneumoniae Not Detected (Not Detect); Coronavirus 229E Not Detected (Not Detect); Coronavirus HKU1 Not Detected (Not Detect); Coronavirus NL63 Not Detected (Not Detect); Coronavirus OC43 Not Detected (Not Detect); Human Metapneumovirus Not Detected (Not Detect); Human Rhinovirus/Enterovirus DETECTED (Not Detect); Influenza A Subtype 2009 H1 Not Detected (Not Detect); Influenza B Not Detected (Not Detect); Mycoplasma pneumoniae Not Detected (Not Detect); Parainfluenza Virus 1 Not Detected (Not Detect); Parainfluenza Virus 2 Not Detected (Not Detect); Parainfluenza Virus 3 Not Detected (Not Detect); Parainfluenza Virus 4 Not Detected (Not Detect); Respiratory Syncytial Virus Not Detected (Not Detect); SARS-CoV-2 Not Detected (Not Detect)
[2020-07-09] MEDS ORDERED: Ondansetron 4 MG/2 ML VIAL IVP PRN (08:53)
[2020-07-09] MEDS ORDERED: Ipratropium/Albuterol Neb 3 ML IH PRN (08:54)
[2020-07-09] MEDS ORDERED: Naloxone 0.4 MG/ML INJ IVP PRN (08:56)
[2020-07-09] MEDS ORDERED: Gabapentin 300 MG CAPSULE PO SCH (09:00)
[2020-07-09] MEDS ORDERED: Acetaminophen 325 MG TABLET PO PRN (09:25)
[2020-07-09] MEDS: ARIPiprazole 10 MG TABLET PO SCH (10:04)
[2020-07-09] MEDS ORDERED: *HR* LORazepam 2 MG/ML VIAL IVP STA (10:16)
[2020-07-09] MEDS: Levalbuterol Neb 1.25 MG/3 ML IH SCH ×3 (11:26→22:28)
[2020-07-09] MEDS ORDERED: Ipratropium/Albuterol Neb 3 ML IH SCH (12:00)
[2020-07-09] MEDS: MethylPREDNISolone 40 MG/ML VIAL IVP SCH (16:07)
[2020-07-09] MEDS ORDERED: methylPREDNISolone 125 MG/2 ML VIAL IVP STA (16:20)
[2020-07-09 16:54] LABS: ABG Base Excess 4 mEq/L (-2 to 3); ABG HCO3 34 mEq/L (21-27); ABG Oxygen Saturation 94 % (95-98); ABG PCO2 79 mmHg (35-45); ABG PH 7.24 pH Units (7.32-7.45); ABG PO2 86 mmHg (85-104); ABG TCO2 37 mEq/L (20-26); Blood Gas VT 450 cc
[2020-07-09] MEDS ORDERED: Ipratropium/Albuterol Neb 3 ML IH STA (16:55)
[2020-07-09] MEDS ORDERED: Ipratropium/Albuterol Neb 3 ML ONE (16:56)
[2020-07-09] MEDS: Azithromycin 500 MG in 0.9 % Sodium Chloride 250 ML IVPB SCH (19:19)
[2020-07-09] MEDS: Dexmedetomidine HCl 400 MCG/100 ML MLS IVC SCH (19:20)
[2020-07-09] MEDS: cefTRIAXone 1,000 MG in Water for inj. (sterile) 10 ML IVP SCH (19:20)
[2020-07-10] MEDS: MethylPREDNISolone 40 MG/ML VIAL IVP SCH ×4 (00:13→23:15)
[2020-07-10] MEDS: Levalbuterol Neb 1.25 MG/3 ML IH SCH ×4 (04:31→19:56)
[2020-07-10] MEDS: *HR* Enoxaparin 40 MG/0.4 ML SYRINGE SQ SCH (05:06)
[2020-07-10 06:22] LABS: Mean Corpuscular Volume 96.8 fL (83.0-100.0)
[2020-07-10 06:28] LABS: Hematocrit 36.2 % (35.3-44.9); Hemoglobin 11.5 g/dL (11.5-15.4); Immature Granulocytes % 0.4 % (0-4); Lymphocytes # 0.3 K/mcL (0.6-4.6); Lymphocytes % 6.4 %; Mean Corpuscular HGB Conc 31.8 g/dL (31.6-35.5); Mean Corpuscular Hemoglobin 30.7 pg (28.0-33.3); Mean Platelet Volume 10.4 fL (9.4-12.4); Monocytes # 0.2 K/mcL (0.0-1.3); Monocytes % 3.3 %; Neutrophils # 4.6 K/mcL (1.6-8.9); Platelet Count 164 K/mcL (140-400); Red Blood Count 3.74 M/mcL (3.82-4.97); Segmented Neutrophils % 89.9 %; White Blood Count 5.1 K/mcL (4.3-11.1)
[2020-07-10] MEDS: ARIPiprazole 10 MG TABLET PO SCH (07:55)
[2020-07-10] MEDS ORDERED: Ipratropium/Albuterol Neb 3 ML ONE (08:51)
[2020-07-10] MEDS: Ipratropium/Albuterol Neb 3 ML IH SCH ×5 (09:02→23:21)
[2020-07-10 09:25] LABS: BUN/Creatinine Ratio 27 (6-26); Blood Urea Nitrogen 14 mg/dL (8-23); Calcium 8.6 mg/dL (8.6-10.3); Carbon Dioxide 35 mEq/L (23-29); Chloride 103 mEq/L (98-107); Glucose 120 mg/dL (70-105); Osmolality,Calculated 292 (280-300); Potassium 4.7 mEq/L (3.5-5.1); Sodium 140 mEq/L (136-145); eGFR For African Americans > 60 (> 60); eGFR For Non-African Americans > 60 (> 60)
[2020-07-10] MEDS: ALPRAZolam 0.5 MG TABLET PO PRN ×2 (15:08→19:44)
[2020-07-10] MEDS: Nicotine 14 MG PATCH.TD24 TD SCH (15:08)
[2020-07-10] MEDS: cefTRIAXone 1,000 MG in Water for inj. (sterile) 10 ML IVP SCH (18:53)
[2020-07-10] MEDS: Azithromycin 500 MG in 0.9 % Sodium Chloride 250 ML IVPB SCH (18:54)
[2020-07-10] MEDS: Dexmedetomidine HCl 400 MCG/100 ML MLS IVC SCH (19:45)
[2020-07-11 01:36] LABS: Hematocrit 37.3 % (35.3-44.9); Hemoglobin 11.4 g/dL (11.5-15.4); Mean Corpuscular HGB Conc 30.6 g/dL (31.6-35.5); Mean Corpuscular Hemoglobin 29.8 pg (28.0-33.3); Mean Corpuscular Volume 97.4 fL (83.0-100.0); Mean Platelet Volume 10.1 fL (9.4-12.4); Platelet Count 198 K/mcL (140-400); Red Blood Count 3.83 M/mcL (3.82-4.97); White Blood Count 7.3 K/mcL (4.3-11.1)
[2020-07-11 01:59] LABS: BUN/Creatinine Ratio 46 (6-26); Blood Urea Nitrogen 21 mg/dL (8-23); Calcium 8.5 mg/dL (8.6-10.3); Carbon Dioxide 32 mEq/L (23-29); Chloride 102 mEq/L (98-107); Glucose 102 mg/dL (70-105); Osmolality,Calculated 293 (280-300); Potassium 4.7 mEq/L (3.5-5.1); Sodium 140 mEq/L (136-145); eGFR For African Americans > 60 (> 60); eGFR For Non-African Americans > 60 (> 60)
[2020-07-11] MEDS: Levalbuterol Neb 1.25 MG/3 ML IH SCH ×3 (04:15→16:09)
[2020-07-11] MEDS: Ipratropium/Albuterol Neb 3 ML IH SCH ×6 (04:15→23:54)
[2020-07-11 04:33] LABS: ABG Base Excess 9 mEq/L (-2 to 3); ABG HCO3 40 mEq/L (21-27); ABG Oxygen Saturation 99 % (95-98); ABG PCO2 85 mmHg (35-45); ABG PH 7.28 pH Units (7.32-7.45); ABG PO2 184 mmHg (85-104); ABG TCO2 42 mEq/L (20-26); Blood Gas Modality AVAPS; Blood Gas VT 450 cc
[2020-07-11] MEDS: *HR* Enoxaparin 40 MG/0.4 ML SYRINGE SQ SCH (06:34)
[2020-07-11] MEDS: Nicotine 14 MG PATCH.TD24 TD SCH (08:20)
[2020-07-11] MEDS: MethylPREDNISolone 40 MG/ML VIAL IVP SCH ×2 (08:20→15:13)
[2020-07-11] MEDS: ARIPiprazole 10 MG TABLET PO SCH (08:20)
[2020-07-11] MEDS: ALPRAZolam 0.5 MG TABLET PO PRN (08:29)
[2020-07-11] MEDS ORDERED: clonazePAM 1 MG TABLET PO SCH (15:00)
[2020-07-11] MEDS ORDERED: Ondansetron 4 MG/2 ML VIAL IVP PRN (16:10)
[2020-07-11] MEDS ORDERED: Naloxone 0.4 MG/ML INJ IVP PRN (16:10)
[2020-07-11] MEDS ORDERED: cefTRIAXone 1,000 MG in Water for inj. (sterile) 10 ML IVP SCH (18:00)
[2020-07-11] MEDS: Azithromycin 500 MG in 0.9 % Sodium Chloride 250 ML IVPB SCH (18:18)
[2020-07-11] MEDS: clonazePAM 1 MG TABLET PO SCH (19:50)
[2020-07-11] MEDS ORDERED: Levalbuterol Neb 1.25 MG/3 ML IH PRN (22:00)
[2020-07-12] MEDS: MethylPREDNISolone 40 MG/ML VIAL IVP SCH ×3 (00:01→20:30)
[2020-07-12 01:14] LABS: Hematocrit 36.8 % (35.3-44.9); Hemoglobin 11.6 g/dL (11.5-15.4); Mean Corpuscular HGB Conc 31.5 g/dL (31.6-35.5); Mean Corpuscular Hemoglobin 30.7 pg (28.0-33.3); Mean Corpuscular Volume 97.4 fL (83.0-100.0); Mean Platelet Volume 9.8 fL (9.4-12.4); Platelet Count 188 K/mcL (140-400); Red Blood Count 3.78 M/mcL (3.82-4.97); Red Cell Distribution Width 11.7 % (11.5-14.5); White Blood Count 5.6 K/mcL (4.3-11.1)
[2020-07-12 01:34] LABS: BUN/Creatinine Ratio 44 (6-26); Blood Urea Nitrogen 21 mg/dL (8-23); Calcium 8.2 mg/dL (8.6-10.3); Carbon Dioxide 37 mEq/L (23-29); Chloride 102 mEq/L (98-107); Glucose 114 mg/dL (70-105); Osmolality,Calculated 298 (280-300); Potassium 4.6 mEq/L (3.5-5.1); Sodium 142 mEq/L (136-145); eGFR For African Americans > 60 (> 60); eGFR For Non-African Americans > 60 (> 60)
[2020-07-12] MEDS: Ipratropium/Albuterol Neb 3 ML IH SCH ×6 (04:19→23:06)
[2020-07-12] MEDS: *HR* Enoxaparin 40 MG/0.4 ML SYRINGE SQ SCH (05:23)
[2020-07-12] MEDS: ARIPiprazole 10 MG TABLET PO SCH (07:45)
[2020-07-12] MEDS: clonazePAM 1 MG TABLET PO SCH ×3 (07:47→20:29)
[2020-07-12] MEDS: Nicotine 14 MG PATCH.TD24 TD SCH (07:47)
[2020-07-12] MEDS: Azithromycin 500 MG in 0.9 % Sodium Chloride 250 ML IVPB SCH (18:00)
[2020-07-13] MEDS: Ipratropium/Albuterol Neb 3 ML IH SCH ×6 (04:21→23:29)
[2020-07-13] MEDS: *HR* Enoxaparin 40 MG/0.4 ML SYRINGE SQ SCH (06:07)
[2020-07-13] MEDS: ARIPiprazole 10 MG TABLET PO SCH (08:06)
[2020-07-13] MEDS: MethylPREDNISolone 40 MG/ML VIAL IVP SCH ×2 (08:09→20:02)
[2020-07-13] MEDS: Nicotine 14 MG PATCH.TD24 TD SCH (08:10)
[2020-07-13] MEDS: clonazePAM 1 MG TABLET PO SCH ×3 (08:39→20:00)
[2020-07-13] MEDS: GuaiFENesin/Codeine Oral Soln 5 ML UDC PO PRN (18:07)
[2020-07-13] MEDS: Azithromycin 500 MG in 0.9 % Sodium Chloride 250 ML IVPB SCH (18:07)
[2020-07-13] MEDS: Acetaminophen 325 MG TABLET PO PRN (18:15)
[2020-07-14] MEDS: Ipratropium/Albuterol Neb 3 ML IH SCH ×6 (03:47→23:00)
[2020-07-14] MEDS: *HR* Enoxaparin 40 MG/0.4 ML SYRINGE SQ SCH (05:41)
[2020-07-14 05:51] LABS: Eosinophils # 0.1 K/mcL (0.0-0.6); Eosinophils % 2.2 %; Hematocrit 37.1 % (35.3-44.9); Hemoglobin 11.7 g/dL (11.5-15.4); Immature Granulocytes % 0.4 % (0-4); Lymphocytes # 0.7 K/mcL (0.6-4.6); Lymphocytes % 15.2 %; Mean Corpuscular HGB Conc 31.5 g/dL (31.6-35.5); Mean Corpuscular Hemoglobin 30.2 pg (28.0-33.3); Mean Corpuscular Volume 95.6 fL (83.0-100.0); Monocytes # 0.4 K/mcL (0.0-1.3); Monocytes % 8.2 %; Neutrophils # 3.4 K/mcL (1.6-8.9); Platelet Count 188 K/mcL (140-400); Red Blood Count 3.88 M/mcL (3.82-4.97); Red Cell Distribution Width 11.6 % (11.5-14.5); White Blood Count 4.6 K/mcL (4.3-11.1)
[2020-07-14 06:10] LABS: BUN/Creatinine Ratio 40 (6-26); Blood Urea Nitrogen 17 mg/dL (8-23); Calcium 8.5 mg/dL (8.6-10.3); Carbon Dioxide 39 mEq/L (23-29); Chloride 99 mEq/L (98-107); Glucose 122 mg/dL (70-105); Osmolality,Calculated 293 (280-300); Potassium 4.3 mEq/L (3.5-5.1); Sodium 140 mEq/L (136-145); eGFR For African Americans > 60 (> 60); eGFR For Non-African Americans > 60 (> 60)
[2020-07-14] MEDS: clonazePAM 1 MG TABLET PO SCH ×3 (08:48→19:40)
[2020-07-14] MEDS: ARIPiprazole 10 MG TABLET PO SCH (08:48)
[2020-07-14] MEDS: MethylPREDNISolone 40 MG/ML VIAL IVP SCH ×2 (08:49→19:40)
[2020-07-14] MEDS: Nicotine 14 MG PATCH.TD24 TD SCH (08:49)
[2020-07-14] MEDS: GuaiFENesin/Codeine Oral Soln 5 ML UDC PO PRN ×2 (08:54→19:39)
[2020-07-14] MEDS ORDERED: Azithromycin 250 MG TABLET PO SCH (09:00)
[2020-07-14] MEDS: Acetaminophen 325 MG TABLET PO PRN (19:44)
[2020-07-15] MEDS: Ipratropium/Albuterol Neb 3 ML IH SCH ×6 (04:09→23:00)
[2020-07-15] MEDS: *HR* Enoxaparin 40 MG/0.4 ML SYRINGE SQ SCH (06:43)
[2020-07-15] MEDS: clonazePAM 1 MG TABLET PO SCH ×3 (08:49→21:33)
[2020-07-15] MEDS: ARIPiprazole 10 MG TABLET PO SCH (08:49)
[2020-07-15] MEDS: MethylPREDNISolone 40 MG/ML VIAL IVP SCH ×2 (08:50→21:33)
[2020-07-15] MEDS: Nicotine 14 MG PATCH.TD24 TD SCH (08:50)
[2020-07-15] MEDS: GuaiFENesin/Codeine Oral Soln 5 ML UDC PO PRN ×2 (14:15→21:33)
[2020-07-16] MEDS: Ipratropium/Albuterol Neb 3 ML IH SCH ×5 (03:22→20:22)
[2020-07-16] MEDS: *HR* Enoxaparin 40 MG/0.4 ML SYRINGE SQ SCH (05:21)
[2020-07-16] MEDS: GuaiFENesin/Codeine Oral Soln 5 ML UDC PO PRN ×2 (05:30→14:29)
[2020-07-16] MEDS: Nicotine 14 MG PATCH.TD24 TD SCH (08:12)
[2020-07-16] MEDS: clonazePAM 1 MG TABLET PO SCH ×3 (08:13→20:10)
[2020-07-16] MEDS: MethylPREDNISolone 40 MG/ML VIAL IVP SCH (08:13)
[2020-07-16] MEDS: ARIPiprazole 10 MG TABLET PO SCH (08:13)
[2020-07-16] MEDS: Gabapentin 300 MG CAPSULE PO SCH ×2 (10:27→20:10)
[2020-07-17] MEDS: Ipratropium/Albuterol Neb 3 ML IH SCH ×5 (00:04→15:09)
[2020-07-17] MEDS: *HR* Enoxaparin 40 MG/0.4 ML SYRINGE SQ SCH (05:53)
[2020-07-17] MEDS: clonazePAM 1 MG TABLET PO SCH ×2 (08:17→15:05)
[2020-07-17] MEDS: ARIPiprazole 10 MG TABLET PO SCH (08:18)
[2020-07-17] MEDS: Gabapentin 300 MG CAPSULE PO SCH (08:18)
[2020-07-17] MEDS: Nicotine 14 MG PATCH.TD24 TD SCH (08:19)
[2020-07-17] MEDS: GuaiFENesin/Codeine Oral Soln 5 ML UDC PO PRN ×2 (08:27→15:05)
[2020-07-17] MEDS ORDERED: predniSONE 20 MG TABLET PO SCH (09:00)
[2020-07-17] MEDS ORDERED: polyethylene glycoL 3350 17 GM POWD.PACK PO PRN (10:14)
[2020-07-17 10:33] VITALS: BP 104/57
[2020-07-17 17:42] LABS: Adenovirus Not Detected (Not Detect); Bordetella Pertussis Not Detected (Not Detect); Chlamydophila pneumoniae Not Detected (Not Detect); Coronavirus 229E Not Detected (Not Detect); Coronavirus HKU1 Not Detected (Not Detect); Coronavirus NL63 Not Detected (Not Detect); Coronavirus OC43 Not Detected (Not Detect); Human Metapneumovirus Not Detected (Not Detect); Human Rhinovirus/Enterovirus Not Detected (Not Detect); Influenza A Subtype 2009 H1 Not Detected (Not Detect); Influenza B Not Detected (Not Detect); Mycoplasma pneumoniae Not Detected (Not Detect); Parainfluenza Virus 1 Not Detected (Not Detect); Parainfluenza Virus 2 Not Detected (Not Detect); Parainfluenza Virus 3 Not Detected (Not Detect); Parainfluenza Virus 4 Not Detected (Not Detect); Respiratory Syncytial Virus Not Detected (Not Detect); SARS-CoV-2 Not Detected (Not Detect)
== END 2020-07-17 18:37 | disposition critical access hospital (66) | DRG 189 ==
LOC: EMEROOARM 06:31 → 2ANU 06:31 → SUATTDRO 08:44 → 2ANU 09:35 → 2NNU 17:49 → SUATTDRO 07-10 14:57 → 3ANU 07-15 11:37
PROVIDERS: ADMIT Student in an Organized Health Care Education/Training Program; ATTEND Internal Medicine

== ENCOUNTER 2021-02-07 14:25 | Observation (INO) ==
[2021-02-07] MEDS ORDERED: methylPREDNISolone 125 MG/2 ML VIAL IVP ONE (14:39)
[2021-02-07] MEDS ORDERED: Ipratropium/Albuterol Neb 3 ML IH ONE (14:39)
[2021-02-07 15:11] LABS: Basophils % 0.2 %; Eosinophils # 0.1 K/mcL (0.0-0.6); Eosinophils % 2.5 %; Hemoglobin 11.4 g/dL (11.5-15.4); Immature Granulocytes % 0.2 % (0-4); Lymphocytes # 0.9 K/mcL (0.6-4.6); Mean Corpuscular HGB Conc 31.7 g/dL (31.6-35.5); Mean Corpuscular Volume 94.7 fL (83.0-100.0); Monocytes # 0.4 K/mcL (0.0-1.3); Neutrophils # 3.5 K/mcL (1.6-8.9); Platelet Count 162 K/mcL (140-400); Red Cell Distribution Width 12.3 % (11.5-14.5); Segmented Neutrophils % 71.1 %; White Blood Count 4.9 K/mcL (4.3-11.1)
[2021-02-07 15:34] LABS: BUN/Creatinine Ratio 12 (6-26); Blood Urea Nitrogen 7 mg/dL (8-23); Calcium 8.4 mg/dL (8.6-10.3); Carbon Dioxide 37 mEq/L (23-29); Chloride 104 mEq/L (98-107); Glucose 102 mg/dL (70-105); Osmolality,Calculated 292 (280-300); Potassium 3.8 mEq/L (3.5-5.1); Sodium 142 mEq/L (136-145); eGFR For African Americans > 60 (> 60); eGFR For Non-African Americans > 60 (> 60)
[2021-02-07 15:36] LABS: Troponin I < 0.03 ng/mL (< 0.04)
[2021-02-07] MEDS ORDERED: Naloxone 0.4 MG/ML INJ IVP PRN (16:05)
[2021-02-07] MEDS ORDERED: Ondansetron ODT 4 MG TAB.RAPDIS SL PRN (16:05)
[2021-02-07] MEDS ORDERED: Ipratropium/Albuterol Neb 3 ML IH PRN (16:33)
[2021-02-07] MEDS ORDERED: Perflutren Lipid Microsphere 1.3 ML in 0.9 % Sodium Chloride 8.7 ML IVP PRN (17:00)
[2021-02-07] MEDS ORDERED: Azithromycin 500 MG in 0.9 % Sodium Chloride 250 ML IVPB SCH (17:00)
[2021-02-07] MEDS ORDERED: *HR* LORazepam 2 MG/ML VIAL IVP ONE (18:13)
[2021-02-07] MEDS: *HR* Heparin 5,000 UNIT/ML VIAL SQ SCH (18:18)
[2021-02-07] MEDS: Acetaminophen 325 MG TABLET PO PRN (18:18)
[2021-02-07] MEDS ORDERED: Albuterol 2.5 MG/3 ML NEBULIZER IH PRN (18:18)
[2021-02-07] MEDS: Azithromycin 250 MG TABLET PO SCH (18:18)
[2021-02-07 19:21] LABS: Adenovirus Not Detected (Not Detect); Bordetella Pertussis Not Detected (Not Detect); Chlamydophila pneumoniae Not Detected (Not Detect); Coronavirus 229E Not Detected (Not Detect); Coronavirus HKU1 Not Detected (Not Detect); Coronavirus NL63 Not Detected (Not Detect); Coronavirus OC43 Not Detected (Not Detect); Human Metapneumovirus Not Detected (Not Detect); Human Rhinovirus/Enterovirus Not Detected (Not Detect); Influenza A Subtype 2009 H1 Not Detected (Not Detect); Influenza B Not Detected (Not Detect); Mycoplasma pneumoniae Not Detected (Not Detect); Parainfluenza Virus 1 Not Detected (Not Detect); Parainfluenza Virus 2 Not Detected (Not Detect); Parainfluenza Virus 3 Not Detected (Not Detect); Parainfluenza Virus 4 Not Detected (Not Detect); Respiratory Syncytial Virus Not Detected (Not Detect); SARS-CoV-2 Not Detected (Not Detect)
[2021-02-07] MEDS: Ipratropium/Albuterol Neb 3 ML IH SCH (22:45)
[2021-02-07] MEDS: Budesonide/Formoterol 160/4.5 1 PUFF INH IH SCH (22:45)
[2021-02-08 02:55] LABS: Hematocrit 36.7 % (35.3-44.9); Hemoglobin 11.8 g/dL (11.5-15.4); Immature Granulocytes % 0.4 % (0-4); Lymphocytes # 0.3 K/mcL (0.6-4.6); Lymphocytes % 5.9 %; Mean Corpuscular HGB Conc 32.2 g/dL (31.6-35.5); Mean Corpuscular Hemoglobin 30.2 pg (28.0-33.3); Mean Corpuscular Volume 93.9 fL (83.0-100.0); Mean Platelet Volume 10.1 fL (9.4-12.4); Monocytes # 0.1 K/mcL (0.0-1.3); Monocytes % 1.7 %; Neutrophils # 4.2 K/mcL (1.6-8.9); Platelet Count 164 K/mcL (140-400); Red Blood Count 3.91 M/mcL (3.82-4.97); Red Cell Distribution Width 12.3 % (11.5-14.5); White Blood Count 4.6 K/mcL (4.3-11.1)
[2021-02-08 03:13] LABS: BUN/Creatinine Ratio 21 (6-26); Blood Urea Nitrogen 12 mg/dL (8-23); Calcium 8.8 mg/dL (8.6-10.3); Carbon Dioxide 33 mEq/L (23-29); Chloride 102 mEq/L (98-107); Glucose 144 mg/dL (70-105); Magnesium 2.1 mg/dL (1.6-2.6); Osmolality,Calculated 292 (280-300); Phosphorous 3.1 mg/dL (2.7-4.5); Potassium 4.4 mEq/L (3.5-5.1); Sodium 140 mEq/L (136-145); eGFR For African Americans > 60 (> 60); eGFR For Non-African Americans > 60 (> 60)
[2021-02-08] MEDS: Ipratropium/Albuterol Neb 3 ML IH SCH ×4 (03:55→22:43)
[2021-02-08] MEDS: *HR* Heparin 5,000 UNIT/ML VIAL SQ SCH ×2 (05:23→16:22)
[2021-02-08] MEDS: Acetaminophen 325 MG TABLET PO PRN (08:30)
[2021-02-08] MEDS: predniSONE 20 MG TABLET PO SCH (08:30)
[2021-02-08] MEDS ORDERED: NON-FORMULARY MEDICATION 1 EACH EACH (Fluticasone/Umeclidin/Vilanter [Trelegy Ellipta 100- IH SCH (09:00)
[2021-02-08] MEDS: Gabapentin 300 MG CAPSULE PO SCH ×2 (09:48→19:55)
[2021-02-08] MEDS: ARIPiprazole 10 MG TABLET PO SCH (09:49)
[2021-02-08] MEDS: clonazePAM 1 MG TABLET PO PRN ×3 (09:51→21:20)
[2021-02-08] MEDS: Roflumilast [Daliresp] 500 MCG Tablet PO SCH (09:51)
[2021-02-08] MEDS: Budesonide/Formoterol 160/4.5 1 PUFF INH IH SCH ×2 (10:21→22:42)
[2021-02-08] MEDS: Tiotropium 10 INH DOSE IH SCH (10:22)
[2021-02-08] MEDS: Azithromycin 250 MG TABLET PO SCH (16:22)
[2021-02-09] MEDS: Ipratropium/Albuterol Neb 3 ML IH SCH ×4 (04:17→21:46)
[2021-02-09] MEDS: *HR* Heparin 5,000 UNIT/ML VIAL SQ SCH ×2 (05:42→16:44)
[2021-02-09] MEDS: Gabapentin 300 MG CAPSULE PO SCH ×2 (08:57→20:47)
[2021-02-09] MEDS: predniSONE 20 MG TABLET PO SCH (08:58)
[2021-02-09] MEDS: ARIPiprazole 10 MG TABLET PO SCH (08:58)
[2021-02-09] MEDS: Roflumilast [Daliresp] 500 MCG Tablet PO SCH (09:17)
[2021-02-09] MEDS: clonazePAM 1 MG TABLET PO PRN (09:39)
[2021-02-09 10:10] LABS: Basophils % 0.4 %; Eosinophils # 0.1 K/mcL (0.0-0.6); Eosinophils % 1.2 %; Hematocrit 38.7 % (35.3-44.9); Hemoglobin 11.9 g/dL (11.5-15.4); Immature Granulocytes % 0.2 % (0-4); Lymphocytes # 1.5 K/mcL (0.6-4.6); Lymphocytes % 29.6 %; Mean Corpuscular HGB Conc 30.7 g/dL (31.6-35.5); Mean Corpuscular Hemoglobin 29.8 pg (28.0-33.3); Mean Platelet Volume 10.2 fL (9.4-12.4); Monocytes # 0.3 K/mcL (0.0-1.3); Monocytes % 5.1 %; Neutrophils # 3.3 K/mcL (1.6-8.9); Platelet Count 174 K/mcL (140-400); Red Blood Count 3.99 M/mcL (3.82-4.97); Red Cell Distribution Width 12.3 % (11.5-14.5); Segmented Neutrophils % 63.5 %; White Blood Count 5.1 K/mcL (4.3-11.1)
[2021-02-09 10:29] LABS: BUN/Creatinine Ratio 27 (6-26); Blood Urea Nitrogen 20 mg/dL (8-23); Calcium 8.9 mg/dL (8.6-10.3); Chloride 101 mEq/L (98-107); Glucose 137 mg/dL (70-105); Osmolality,Calculated 301 (280-300); Potassium 3.6 mEq/L (3.5-5.1); Sodium 143 mEq/L (136-145); eGFR For African Americans > 60 (> 60); eGFR For Non-African Americans > 60 (> 60)
[2021-02-09] MEDS: Fluticasone Propionate Nasal 50 MCG/SPRAY BOTTLE NS SCH (10:33)
[2021-02-09 10:37] LABS: Carbon Dioxide 38 mEq/L (23-29)
[2021-02-09] MEDS: Budesonide/Formoterol 160/4.5 1 PUFF INH IH SCH ×2 (11:19→21:46)
[2021-02-09] MEDS: Tiotropium 10 INH DOSE IH SCH (11:21)
[2021-02-09] MEDS ORDERED: Saline Nasal Spray 44 ML BOTTLE NS PRN (15:11)
[2021-02-09] MEDS: Azithromycin 250 MG TABLET PO SCH (16:43)
[2021-02-10 01:32] LABS: Basophils % 0.2 %; Eosinophils % 0.2 %; Hematocrit 35.2 % (35.3-44.9); Hemoglobin 10.9 g/dL (11.5-15.4); Immature Granulocytes % 0.4 % (0-4); Lymphocytes # 0.8 K/mcL (0.6-4.6); Lymphocytes % 16.1 %; Mean Corpuscular Hemoglobin 29.6 pg (28.0-33.3); Mean Corpuscular Volume 95.7 fL (83.0-100.0); Mean Platelet Volume 10.2 fL (9.4-12.4); Monocytes # 0.4 K/mcL (0.0-1.3); Monocytes % 6.9 %; Neutrophils # 3.9 K/mcL (1.6-8.9); Platelet Count 166 K/mcL (140-400); Red Blood Count 3.68 M/mcL (3.82-4.97); Red Cell Distribution Width 12.1 % (11.5-14.5); Segmented Neutrophils % 76.2 %; White Blood Count 5.1 K/mcL (4.3-11.1)
[2021-02-10 01:53] LABS: BUN/Creatinine Ratio 26 (6-26); Blood Urea Nitrogen 18 mg/dL (8-23); Calcium 8.7 mg/dL (8.6-10.3); Carbon Dioxide 41 mEq/L (23-29); Chloride 99 mEq/L (98-107); Glucose 107 mg/dL (70-105); Osmolality,Calculated 294 (280-300); Sodium 141 mEq/L (136-145); eGFR For African Americans > 60 (> 60); eGFR For Non-African Americans > 60 (> 60)
[2021-02-10] MEDS: Ipratropium/Albuterol Neb 3 ML IH SCH ×2 (04:09→10:31)
[2021-02-10] MEDS: *HR* Heparin 5,000 UNIT/ML VIAL SQ SCH (05:13)
[2021-02-10 05:16] VITALS: O2SAT 98
[2021-02-10 07:21] VITALS: BP 107/68; PULSE 78; TEMP 97.5
[2021-02-10] MEDS: clonazePAM 1 MG TABLET PO PRN (09:19)
[2021-02-10] MEDS: ARIPiprazole 10 MG TABLET PO SCH (09:19)
[2021-02-10] MEDS: Gabapentin 300 MG CAPSULE PO SCH (09:19)
[2021-02-10] MEDS: predniSONE 20 MG TABLET PO SCH (09:19)
[2021-02-10] MEDS: Fluticasone Propionate Nasal 50 MCG/SPRAY BOTTLE NS SCH (09:20)
[2021-02-10] MEDS: Tiotropium 10 INH DOSE IH SCH (10:33)
[2021-02-10] MEDS: Budesonide/Formoterol 160/4.5 1 PUFF INH IH SCH (10:33)
== END 2021-02-10 14:45 | disposition home health service (06) ==
LOC: EMEROOARM 14:25 → 3BNU 14:25 → SUATTDRO 16:35 → 3BNU 17:38
PROVIDERS: ADMIT Internal Medicine; ATTEND Internal Medicine

== ENCOUNTER 2021-03-18 07:10 | Inpatient (IN) ==
[2021-03-18] MEDS ORDERED: Ipratropium/Albuterol Neb 3 ML IH ONE ×2 (08:02→09:55)
[2021-03-18 08:30] LABS: Basophils % 0.3 %; Hematocrit 34.8 % (35.3-44.9); Hemoglobin 10.9 g/dL (11.5-15.4); Immature Granulocytes % 0.3 % (0-4); Lymphocytes # 0.7 K/mcL (0.6-4.6); Lymphocytes % 20.7 %; Mean Corpuscular HGB Conc 31.3 g/dL (31.6-35.5); Mean Corpuscular Hemoglobin 28.9 pg (28.0-33.3); Mean Corpuscular Volume 92.3 fL (83.0-100.0); Mean Platelet Volume 9.5 fL (9.4-12.4); Monocytes # 0.2 K/mcL (0.0-1.3); Monocytes % 6.3 %; Neutrophils # 2.3 K/mcL (1.6-8.9); Platelet Count 172 K/mcL (140-400); Red Blood Count 3.77 M/mcL (3.82-4.97); Red Cell Distribution Width 13.4 % (11.5-14.5); Segmented Neutrophils % 72.4 %
[2021-03-18 08:32] LABS: White Blood Count 3.2 K/mcL (4.3-11.1)
[2021-03-18] MEDS: methylPREDNISolone 125 MG/2 ML VIAL IVP ONE ×2 (08:37→08:39)
[2021-03-18 08:41] LABS: VBG HCO3 39 mEq/L (21-27); VBG PCO2 76 mmHg (41-51); VBG PH 7.32 pH Units (7.32-7.42); VBG PO2 65 mmHg (25-50)
[2021-03-18 09:00] LABS: Alanine Aminotransferase 21 Units/L (7-52); Albumin 3.7 g/dL (3.5-5.7); Albumin/Globulin Ratio 1.5 (1.1-2.2); Alkaline Phosphatase 55 Units/L (34-104); Aspartate Amino Transferase 29 Units/L (13-39); BUN/Creatinine Ratio 23 (6-26); Bilirubin,Direct 0.1 mg/dL (0.0-0.2); Bilirubin,Indirect 0.3 mg/dL (0.0-1.0); Bilirubin,Total 0.4 mg/dL (0.3-1.0); Blood Urea Nitrogen 15 mg/dL (8-23); Calcium 8.7 mg/dL (8.6-10.3); Carbon Dioxide 35 mEq/L (23-29); Chloride 104 mEq/L (98-107); Globulin 2.4 g/dL (2.4-3.5); Glucose 84 mg/dL (70-105); Osmolality,Calculated 300 (280-300); Potassium 3.4 mEq/L (3.5-5.1); Sodium 145 mEq/L (136-145); Total Protein 6.1 g/dL (6.4-8.9); Troponin I < 0.03 ng/mL (< 0.04); eGFR For African Americans > 60 (> 60); eGFR For Non-African Americans > 60 (> 60)
[2021-03-18] MEDS ORDERED: cefTRIAXone 1,000 MG in Water for inj. (sterile) 10 ML IVP ONE (09:34)
[2021-03-18] MEDS ORDERED: Azithromycin 250 MG TABLET PO ONE (09:34)
[2021-03-18] MEDS ORDERED: 0.9 % Sodium Chloride 500 ML IVC ONE (09:53)
[2021-03-18] MEDS ORDERED: Ondansetron 4 MG/2 ML VIAL IVP PRN (11:12)
[2021-03-18] MEDS ORDERED: Naloxone 0.4 MG/ML INJ IVP PRN (11:12)
[2021-03-18] MEDS: Azithromycin 500 MG in 0.9 % Sodium Chloride 250 ML IVPB SCH (11:17)
[2021-03-18] MEDS: clonazePAM 1 MG TABLET PO PRN ×2 (13:48→22:07)
[2021-03-18] MEDS: *HR* Heparin 5,000 UNIT/ML VIAL SQ SCH (16:45)
[2021-03-18] MEDS: MethylPREDNISolone 40 MG/ML VIAL IVP SCH ×2 (16:45→23:36)
[2021-03-18] MEDS: Ipratropium/Albuterol Neb 3 ML IH SCH ×2 (16:45→20:57)
[2021-03-18] MEDS: Budesonide/Formoterol 160/4.5 1 PUFF INH IH SCH (20:57)
[2021-03-19] MEDS: Ipratropium/Albuterol Neb 3 ML IH SCH ×2 (04:01→09:34)
[2021-03-19 04:14] LABS: Hematocrit 29.9 % (35.3-44.9); Hemoglobin 9.3 g/dL (11.5-15.4); Immature Granulocytes % 0.7 % (0-4); Lymphocytes # 0.2 K/mcL (0.6-4.6); Lymphocytes % 13.7 %; Mean Corpuscular HGB Conc 31.1 g/dL (31.6-35.5); Mean Corpuscular Hemoglobin 29.2 pg (28.0-33.3); Mean Corpuscular Volume 93.7 fL (83.0-100.0); Mean Platelet Volume 9.7 fL (9.4-12.4); Monocytes # 0.1 K/mcL (0.0-1.3); Monocytes % 3.6 %; Neutrophils # 1.2 K/mcL (1.6-8.9); Platelet Count 161 K/mcL (140-400); Red Blood Count 3.19 M/mcL (3.82-4.97); Red Cell Distribution Width 13.2 % (11.5-14.5); White Blood Count 1.4 K/mcL (4.3-11.1)
[2021-03-19 04:31] LABS: BUN/Creatinine Ratio 36 (6-26); Blood Urea Nitrogen 16 mg/dL (8-23); Calcium 8.2 mg/dL (8.6-10.3); Carbon Dioxide 35 mEq/L (23-29); Chloride 105 mEq/L (98-107); Glucose 124 mg/dL (70-105); Osmolality,Calculated 301 (280-300); Potassium 3.7 mEq/L (3.5-5.1); Sodium 144 mEq/L (136-145); eGFR For African Americans > 60 (> 60); eGFR For Non-African Americans > 60 (> 60)
[2021-03-19] MEDS: *HR* Heparin 5,000 UNIT/ML VIAL SQ SCH ×2 (05:56→18:04)
[2021-03-19] MEDS ORDERED: (Roflumilast [Daliresp] 500 MCG Tablet) PO SCH (09:00)
[2021-03-19] MEDS: Budesonide/Formoterol 160/4.5 1 PUFF INH IH SCH ×2 (09:34→20:09)
[2021-03-19] MEDS: ARIPiprazole 5 MG TABLET PO SCH (11:44)
[2021-03-19] MEDS: MethylPREDNISolone 40 MG/ML VIAL IVP SCH (11:44)
[2021-03-19] MEDS: Azithromycin 500 MG in 0.9 % Sodium Chloride 250 ML IVPB SCH (11:45)
[2021-03-19] MEDS: Fluticasone Propionate Nasal 50 MCG/SPRAY BOTTLE NS SCH (11:46)
[2021-03-19] MEDS: clonazePAM 1 MG TABLET PO PRN ×2 (11:55→21:52)
[2021-03-19] MEDS: Gabapentin 300 MG CAPSULE PO SCH (21:52)
[2021-03-20] MEDS: MethylPREDNISolone 40 MG/ML VIAL IVP SCH ×3 (00:45→21:43)
[2021-03-20] MEDS: *HR* Heparin 5,000 UNIT/ML VIAL SQ SCH ×2 (06:01→17:36)
[2021-03-20 07:52] LABS: Hematocrit 30.5 % (35.3-44.9); Hemoglobin 9.7 g/dL (11.5-15.4); Immature Granulocytes % 0.4 % (0-4); Lymphocytes # 0.3 K/mcL (0.6-4.6); Mean Corpuscular HGB Conc 31.8 g/dL (31.6-35.5); Mean Corpuscular Hemoglobin 29.7 pg (28.0-33.3); Mean Corpuscular Volume 93.3 fL (83.0-100.0); Mean Platelet Volume 9.7 fL (9.4-12.4); Monocytes # 0.2 K/mcL (0.0-1.3); Monocytes % 6.3 %; Platelet Count 187 K/mcL (140-400); Red Blood Count 3.27 M/mcL (3.82-4.97); Red Cell Distribution Width 13.1 % (11.5-14.5); Segmented Neutrophils % 82.3 %
[2021-03-20] MEDS: Budesonide/Formoterol 160/4.5 1 PUFF INH IH SCH ×2 (08:00→20:20)
[2021-03-20 08:02] LABS: White Blood Count 2.4 K/mcL (4.3-11.1)
[2021-03-20 08:21] LABS: BUN/Creatinine Ratio 56 (6-26); Blood Urea Nitrogen 25 mg/dL (8-23); Calcium 8.3 mg/dL (8.6-10.3); Carbon Dioxide 36 mEq/L (23-29); Chloride 105 mEq/L (98-107); Glucose 131 mg/dL (70-105); Osmolality,Calculated 306 (280-300); Potassium 3.9 mEq/L (3.5-5.1); Sodium 145 mEq/L (136-145); eGFR For African Americans > 60 (> 60); eGFR For Non-African Americans > 60 (> 60)
[2021-03-20] MEDS: Fluticasone Propionate Nasal 50 MCG/SPRAY BOTTLE NS SCH (09:00)
[2021-03-20] MEDS: Gabapentin 300 MG CAPSULE PO SCH ×2 (09:30→21:42)
[2021-03-20] MEDS: ARIPiprazole 5 MG TABLET PO SCH (09:30)
[2021-03-20] MEDS: Azithromycin 500 MG in 0.9 % Sodium Chloride 250 ML IVPB SCH (11:59)
[2021-03-20] MEDS: clonazePAM 1 MG TABLET PO PRN (21:46)
[2021-03-20 23:14] LABS: VBG HCO3 36 mEq/L (21-27); VBG PCO2 61 mmHg (41-51); VBG PH 7.39 pH Units (7.32-7.42); VBG PO2 179 mmHg (25-50)
[2021-03-21 00:59] LABS: Basophils % 0.2 %; Hematocrit 30.7 % (35.3-44.9); Hemoglobin 9.6 g/dL (11.5-15.4); Immature Granulocytes % 0.9 % (0-4); Lymphocytes # 0.2 K/mcL (0.6-4.6); Lymphocytes % 4.8 %; Mean Corpuscular HGB Conc 31.3 g/dL (31.6-35.5); Mean Corpuscular Hemoglobin 29.4 pg (28.0-33.3); Mean Corpuscular Volume 94.2 fL (83.0-100.0); Mean Platelet Volume 9.7 fL (9.4-12.4); Monocytes # 0.3 K/mcL (0.0-1.3); Monocytes % 6.7 %; Platelet Count 210 K/mcL (140-400); Red Blood Count 3.26 M/mcL (3.82-4.97); Segmented Neutrophils % 87.4 %
[2021-03-21 01:01] LABS: White Blood Count 4.6 K/mcL (4.3-11.1)
[2021-03-21 01:14] LABS: BUN/Creatinine Ratio 56 (6-26); Blood Urea Nitrogen 24 mg/dL (8-23); Calcium 8.3 mg/dL (8.6-10.3); Carbon Dioxide 36 mEq/L (23-29); Chloride 106 mEq/L (98-107); Glucose 156 mg/dL (70-105); Osmolality,Calculated 309 (280-300); Potassium 3.6 mEq/L (3.5-5.1); Sodium 146 mEq/L (136-145); eGFR For African Americans > 60 (> 60); eGFR For Non-African Americans > 60 (> 60)
[2021-03-21] MEDS: *HR* Heparin 5,000 UNIT/ML VIAL SQ SCH (06:19)
[2021-03-21] MEDS: Budesonide/Formoterol 160/4.5 1 PUFF INH IH SCH ×2 (07:48→20:08)
[2021-03-21] MEDS: Azithromycin 250 MG TABLET PO SCH (08:58)
[2021-03-21] MEDS: Fluticasone Propionate Nasal 50 MCG/SPRAY BOTTLE NS SCH (08:58)
[2021-03-21] MEDS: ARIPiprazole 5 MG TABLET PO SCH (08:58)
[2021-03-21] MEDS: Gabapentin 300 MG CAPSULE PO SCH ×2 (08:58→20:20)
[2021-03-21] MEDS: MethylPREDNISolone 40 MG/ML VIAL IVP SCH (11:38)
[2021-03-21] MEDS: clonazePAM 1 MG TABLET PO PRN (20:20)
[2021-03-22] MEDS ORDERED: *HR* LORazepam 2 MG/ML VIAL IVP ONE (03:45)
[2021-03-22 04:11] LABS: ABG Base Excess 13 mEq/L (-2 to 3); ABG HCO3 41 mEq/L (21-27); ABG Oxygen Saturation 81 % (95-98); ABG PCO2 72 mmHg (35-45); ABG PH 7.37 pH Units (7.32-7.45); ABG PO2 50 mmHg (85-104); ABG TCO2 43 mEq/L (20-26)
[2021-03-22] MEDS: *HR* Enoxaparin 40 MG/0.4 ML SYRINGE SQ SCH (05:30)
[2021-03-22] MEDS: MethylPREDNISolone 40 MG/ML VIAL IVP SCH (07:40)
[2021-03-22] MEDS: Budesonide/Formoterol 160/4.5 1 PUFF INH IH SCH ×2 (07:51→20:13)
[2021-03-22] MEDS: ARIPiprazole 5 MG TABLET PO SCH (09:54)
[2021-03-22] MEDS: Gabapentin 300 MG CAPSULE PO SCH ×2 (09:54→19:25)
[2021-03-22] MEDS: Fluticasone Propionate Nasal 50 MCG/SPRAY BOTTLE NS SCH (09:54)
[2021-03-22] MEDS: Azithromycin 250 MG TABLET PO SCH (09:55)
[2021-03-22] MEDS: predniSONE 20 MG TABLET PO SCH (09:55)
[2021-03-22] MEDS: clonazePAM 1 MG TABLET PO PRN (19:24)
[2021-03-23] MEDS: *HR* Enoxaparin 40 MG/0.4 ML SYRINGE SQ SCH (05:32)
[2021-03-23 05:57] LABS: VBG HCO3 37 mEq/L (21-27); VBG PCO2 66 mmHg (41-51); VBG PH 7.36 pH Units (7.32-7.42); VBG PO2 150 mmHg (25-50)
[2021-03-23 06:17] LABS: BUN/Creatinine Ratio 55 (6-26); Blood Urea Nitrogen 24 mg/dL (8-23); Calcium 8.7 mg/dL (8.6-10.3); Carbon Dioxide 40 mEq/L (23-29); Chloride 104 mEq/L (98-107); Glucose 73 mg/dL (70-105); Magnesium 2.4 mg/dL (1.6-2.6); Osmolality,Calculated 307 (280-300); Phosphorous 2.5 mg/dL (2.7-4.5); Sodium 147 mEq/L (136-145); eGFR For African Americans > 60 (> 60); eGFR For Non-African Americans > 60 (> 60)
[2021-03-23] MEDS: Budesonide/Formoterol 160/4.5 1 PUFF INH IH SCH ×2 (08:14→20:25)
[2021-03-23] MEDS: Gabapentin 300 MG CAPSULE PO SCH ×2 (08:14→21:16)
[2021-03-23] MEDS: ARIPiprazole 5 MG TABLET PO SCH (08:14)
[2021-03-23] MEDS: predniSONE 20 MG TABLET PO SCH (08:14)
[2021-03-23] MEDS: Fluticasone Propionate Nasal 50 MCG/SPRAY BOTTLE NS SCH (08:15)
[2021-03-23] MEDS: Azithromycin 250 MG TABLET PO SCH (08:15)
[2021-03-23] MEDS: Ipratropium/Albuterol Neb 3 ML IH SCH ×2 (16:02→20:25)
[2021-03-24 01:54] LABS: Hemoglobin 9.6 g/dL (11.5-15.4); Mean Corpuscular Hemoglobin 30.1 pg (28.0-33.3); Mean Corpuscular Volume 97.2 fL (83.0-100.0); Mean Platelet Volume 9.4 fL (9.4-12.4); Platelet Count 195 K/mcL (140-400); Red Blood Count 3.19 M/mcL (3.82-4.97); White Blood Count 3.2 K/mcL (4.3-11.1)
[2021-03-24 02:14] LABS: BUN/Creatinine Ratio 60 (6-26); Blood Urea Nitrogen 25 mg/dL (8-23); Calcium 8.5 mg/dL (8.6-10.3); Carbon Dioxide 41 mEq/L (23-29); Chloride 103 mEq/L (98-107); Glucose 115 mg/dL (70-105); Magnesium 2.1 mg/dL (1.6-2.6); Osmolality,Calculated 309 (280-300); Sodium 147 mEq/L (136-145); eGFR For African Americans > 60 (> 60); eGFR For Non-African Americans > 60 (> 60)
[2021-03-24] MEDS: Ipratropium/Albuterol Neb 3 ML IH SCH ×4 (04:37→21:14)
[2021-03-24] MEDS: *HR* Enoxaparin 40 MG/0.4 ML SYRINGE SQ SCH (06:03)
[2021-03-24] MEDS: predniSONE 20 MG TABLET PO SCH (07:39)
[2021-03-24] MEDS: Gabapentin 300 MG CAPSULE PO SCH ×2 (07:39→21:39)
[2021-03-24] MEDS: Fluticasone Propionate Nasal 50 MCG/SPRAY BOTTLE NS SCH (07:40)
[2021-03-24] MEDS: ARIPiprazole 5 MG TABLET PO SCH (07:40)
[2021-03-24] MEDS: Budesonide/Formoterol 160/4.5 1 PUFF INH IH SCH ×2 (08:25→21:21)
[2021-03-25] MEDS: Ipratropium/Albuterol Neb 3 ML IH SCH ×4 (04:15→22:06)
[2021-03-25] MEDS: *HR* Enoxaparin 40 MG/0.4 ML SYRINGE SQ SCH (05:34)
[2021-03-25] MEDS: Budesonide/Formoterol 160/4.5 1 PUFF INH IH SCH ×2 (07:31→22:06)
[2021-03-25] MEDS: Gabapentin 300 MG CAPSULE PO SCH ×2 (08:33→21:00)
[2021-03-25] MEDS: Fluticasone Propionate Nasal 50 MCG/SPRAY BOTTLE NS SCH (08:33)
[2021-03-25] MEDS: predniSONE 20 MG TABLET PO SCH (08:34)
[2021-03-25] MEDS: ARIPiprazole 5 MG TABLET PO SCH (08:34)
[2021-03-25] MEDS: clonazePAM 1 MG TABLET PO PRN (16:10)
[2021-03-26] MEDS: Ipratropium/Albuterol Neb 3 ML IH SCH ×4 (04:27→22:12)
[2021-03-26] MEDS: *HR* Enoxaparin 40 MG/0.4 ML SYRINGE SQ SCH (05:20)
[2021-03-26 07:20] LABS: BUN/Creatinine Ratio 38 (6-26); Blood Urea Nitrogen 20 mg/dL (8-23); Calcium 9.2 mg/dL (8.6-10.3); Carbon Dioxide > 45 mEq/L (23-29); Chloride 97 mEq/L (98-107); Glucose 105 mg/dL (70-105); Osmolality,Calculated 301 (280-300); Potassium 3.6 mEq/L (3.5-5.1); Sodium 144 mEq/L (136-145); eGFR For African Americans > 60 (> 60); eGFR For Non-African Americans > 60 (> 60)
[2021-03-26] MEDS: predniSONE 20 MG TABLET PO SCH (07:44)
[2021-03-26] MEDS: ARIPiprazole 5 MG TABLET PO SCH (07:44)
[2021-03-26] MEDS: Gabapentin 300 MG CAPSULE PO SCH ×2 (07:44→21:16)
[2021-03-26] MEDS: clonazePAM 1 MG TABLET PO PRN ×2 (07:48→17:10)
[2021-03-26] MEDS: Fluticasone Propionate Nasal 50 MCG/SPRAY BOTTLE NS SCH (07:50)
[2021-03-26 07:57] LABS: VBG HCO3 43 mEq/L (21-27); VBG PCO2 78 mmHg (41-51); VBG PH 7.35 pH Units (7.32-7.42); VBG PO2 64 mmHg (25-50)
[2021-03-26] MEDS: Budesonide/Formoterol 160/4.5 1 PUFF INH IH SCH ×2 (11:29→22:12)
[2021-03-27] MEDS: Ipratropium/Albuterol Neb 3 ML IH SCH ×4 (04:44→21:06)
[2021-03-27] MEDS: *HR* Enoxaparin 40 MG/0.4 ML SYRINGE SQ SCH (05:31)
[2021-03-27] MEDS: clonazePAM 1 MG TABLET PO PRN (05:35)
[2021-03-27] MEDS: predniSONE 20 MG TABLET PO SCH (07:41)
[2021-03-27] MEDS: Gabapentin 300 MG CAPSULE PO SCH ×2 (07:41→20:58)
[2021-03-27] MEDS: ARIPiprazole 5 MG TABLET PO SCH (07:41)
[2021-03-27] MEDS: Fluticasone Propionate Nasal 50 MCG/SPRAY BOTTLE NS SCH (07:42)
[2021-03-27] MEDS: Budesonide/Formoterol 160/4.5 1 PUFF INH IH SCH ×2 (10:41→21:06)
[2021-03-27 11:51] LABS: Hematocrit 34.1 % (35.3-44.9); Hemoglobin 10.7 g/dL (11.5-15.4); Immature Granulocytes % 0.9 % (0-4); Lymphocytes # 0.4 K/mcL (0.6-4.6); Lymphocytes % 5.4 %; Mean Corpuscular HGB Conc 31.4 g/dL (31.6-35.5); Mean Corpuscular Hemoglobin 30.5 pg (28.0-33.3); Mean Corpuscular Volume 97.2 fL (83.0-100.0); Monocytes # 0.3 K/mcL (0.0-1.3); Monocytes % 4.2 %; Neutrophils # 5.8 K/mcL (1.6-8.9); Platelet Count 147 K/mcL (140-400); Red Blood Count 3.51 M/mcL (3.82-4.97); Red Cell Distribution Width 13.7 % (11.5-14.5); Segmented Neutrophils % 89.5 %; White Blood Count 6.5 K/mcL (4.3-11.1)
[2021-03-27 12:04] LABS: VBG HCO3 38 mEq/L (21-27); VBG PCO2 67 mmHg (41-51); VBG PH 7.36 pH Units (7.32-7.42); VBG PO2 160 mmHg (25-50)
[2021-03-27 15:31] LABS: BUN/Creatinine Ratio 41 (6-26); Blood Urea Nitrogen 22 mg/dL (8-23); Calcium 9.6 mg/dL (8.6-10.3); Carbon Dioxide 39 mEq/L (23-29); Chloride 99 mEq/L (98-107); Glucose 194 mg/dL (70-105); Osmolality,Calculated 307 (280-300); Potassium 4.7 mEq/L (3.5-5.1); Sodium 144 mEq/L (136-145); eGFR For African Americans > 60 (> 60); eGFR For Non-African Americans > 60 (> 60)
[2021-03-28] MEDS: Ipratropium/Albuterol Neb 3 ML IH SCH ×4 (04:57→19:58)
[2021-03-28] MEDS: *HR* Enoxaparin 40 MG/0.4 ML SYRINGE SQ SCH (05:18)
[2021-03-28] MEDS: Gabapentin 300 MG CAPSULE PO SCH ×2 (08:03→21:11)
[2021-03-28] MEDS: predniSONE 20 MG TABLET PO SCH (08:04)
[2021-03-28] MEDS: ARIPiprazole 5 MG TABLET PO SCH (08:04)
[2021-03-28] MEDS: Fluticasone Propionate Nasal 50 MCG/SPRAY BOTTLE NS SCH (08:06)
[2021-03-28] MEDS: Budesonide/Formoterol 160/4.5 1 PUFF INH IH SCH ×2 (11:06→19:58)
[2021-03-28] MEDS: clonazePAM 1 MG TABLET PO PRN (17:26)
[2021-03-29] MEDS: Ipratropium/Albuterol Neb 3 ML IH SCH ×4 (04:07→21:11)
[2021-03-29] MEDS: *HR* Enoxaparin 40 MG/0.4 ML SYRINGE SQ SCH (05:38)
[2021-03-29] MEDS: ARIPiprazole 5 MG TABLET PO SCH (07:39)
[2021-03-29] MEDS: Gabapentin 300 MG CAPSULE PO SCH ×2 (07:39→21:54)
[2021-03-29] MEDS: predniSONE 20 MG TABLET PO SCH (07:39)
[2021-03-29] MEDS: Fluticasone Propionate Nasal 50 MCG/SPRAY BOTTLE NS SCH (07:44)
[2021-03-29 09:06] LABS: VBG HCO3 47 mEq/L (21-27); VBG PCO2 100 mmHg (41-51); VBG PH 7.28 pH Units (7.32-7.42); VBG PO2 34 mmHg (25-50)
[2021-03-29 09:11] LABS: Basophils % 0.3 %; Hematocrit 39.6 % (35.3-44.9); Immature Granulocytes % 1.2 % (0-4); Lymphocytes % 15.4 %; Mean Corpuscular HGB Conc 30.8 g/dL (31.6-35.5); Mean Corpuscular Hemoglobin 29.7 pg (28.0-33.3); Mean Corpuscular Volume 96.4 fL (83.0-100.0); Mean Platelet Volume 10.3 fL (9.4-12.4); Monocytes # 0.6 K/mcL (0.0-1.3); Monocytes % 9.5 %; Neutrophils # 4.7 K/mcL (1.6-8.9); Platelet Count 158 K/mcL (140-400); Red Blood Count 4.11 M/mcL (3.82-4.97); Red Cell Distribution Width 13.6 % (11.5-14.5); Segmented Neutrophils % 73.6 %
[2021-03-29 09:19] LABS: BUN/Creatinine Ratio 40 (6-26); Blood Urea Nitrogen 20 mg/dL (8-23); Calcium 9.6 mg/dL (8.6-10.3); Carbon Dioxide 45 mEq/L (23-29); Chloride 96 mEq/L (98-107); Glucose 99 mg/dL (70-105); Osmolality,Calculated 297 (280-300); Potassium 3.6 mEq/L (3.5-5.1); Sodium 142 mEq/L (136-145); eGFR For African Americans > 60 (> 60); eGFR For Non-African Americans > 60 (> 60)
[2021-03-29 09:31] LABS: Hemoglobin 12.2 g/dL (11.5-15.4); White Blood Count 6.4 K/mcL (4.3-11.1)
[2021-03-29] MEDS: Budesonide/Formoterol 160/4.5 1 PUFF INH IH SCH ×2 (10:39→21:11)
[2021-03-30] MEDS: Ipratropium/Albuterol Neb 3 ML IH SCH ×5 (04:20→21:14)
[2021-03-30] MEDS: *HR* Enoxaparin 40 MG/0.4 ML SYRINGE SQ SCH (06:17)
[2021-03-30] MEDS: Budesonide/Formoterol 160/4.5 1 PUFF INH IH SCH ×2 (08:06→21:14)
[2021-03-30] MEDS: predniSONE 20 MG TABLET PO SCH (08:51)
[2021-03-30] MEDS: Gabapentin 300 MG CAPSULE PO SCH ×2 (08:51→20:56)
[2021-03-30] MEDS: ARIPiprazole 5 MG TABLET PO SCH (08:53)
[2021-03-30] MEDS: Fluticasone Propionate Nasal 50 MCG/SPRAY BOTTLE NS SCH (08:55)
[2021-03-30 09:56] LABS: VBG HCO3 42 mEq/L (21-27); VBG PCO2 89 mmHg (41-51); VBG PH 7.28 pH Units (7.32-7.42); VBG PO2 64 mmHg (25-50)
[2021-03-31] MEDS: Ipratropium/Albuterol Neb 3 ML IH SCH ×4 (03:45→21:56)
[2021-03-31] MEDS: *HR* Enoxaparin 40 MG/0.4 ML SYRINGE SQ SCH (06:18)
[2021-03-31] MEDS: clonazePAM 1 MG TABLET PO PRN (06:23)
[2021-03-31] MEDS: Budesonide/Formoterol 160/4.5 1 PUFF INH IH SCH ×2 (08:31→21:56)
[2021-03-31] MEDS: ARIPiprazole 5 MG TABLET PO SCH (09:10)
[2021-03-31] MEDS: predniSONE 20 MG TABLET PO SCH (09:10)
[2021-03-31] MEDS: Gabapentin 300 MG CAPSULE PO SCH ×2 (09:11→20:39)
[2021-03-31] MEDS: Fluticasone Propionate Nasal 50 MCG/SPRAY BOTTLE NS SCH (09:15)
[2021-03-31 10:07] LABS: VBG HCO3 41 mEq/L (21-27); VBG PCO2 82 mmHg (41-51); VBG PH 7.31 pH Units (7.32-7.42); VBG PO2 35 mmHg (25-50)
[2021-03-31 10:42] LABS: BUN/Creatinine Ratio 31 (6-26); Blood Urea Nitrogen 20 mg/dL (8-23); Calcium 9.7 mg/dL (8.6-10.3); Carbon Dioxide 42 mEq/L (23-29); Chloride 96 mEq/L (98-107); Glucose 137 mg/dL (70-105); Osmolality,Calculated 297 (280-300); Potassium 3.8 mEq/L (3.5-5.1); Sodium 141 mEq/L (136-145); eGFR For African Americans > 60 (> 60); eGFR For Non-African Americans > 60 (> 60)
[2021-04-01] MEDS: Ipratropium/Albuterol Neb 3 ML IH SCH ×4 (04:22→20:14)
[2021-04-01] MEDS: *HR* Enoxaparin 40 MG/0.4 ML SYRINGE SQ SCH (05:31)
[2021-04-01] MEDS: clonazePAM 1 MG TABLET PO PRN (05:34)
[2021-04-01] MEDS: Budesonide/Formoterol 160/4.5 1 PUFF INH IH SCH ×2 (08:20→20:14)
[2021-04-01] MEDS: Fluticasone Propionate Nasal 50 MCG/SPRAY BOTTLE NS SCH (09:50)
[2021-04-01] MEDS: Gabapentin 300 MG CAPSULE PO SCH ×2 (09:50→20:37)
[2021-04-01] MEDS: ARIPiprazole 5 MG TABLET PO SCH (09:50)
[2021-04-01] MEDS: predniSONE 20 MG TABLET PO SCH (09:51)
[2021-04-01 10:27] LABS: VBG HCO3 39 mEq/L (21-27); VBG PCO2 85 mmHg (41-51); VBG PH 7.28 pH Units (7.32-7.42); VBG PO2 44 mmHg (25-50)
[2021-04-02] MEDS: Ipratropium/Albuterol Neb 3 ML IH SCH ×5 (04:15→20:16)
[2021-04-02] MEDS: *HR* Enoxaparin 40 MG/0.4 ML SYRINGE SQ SCH (06:16)
[2021-04-02] MEDS: ARIPiprazole 5 MG TABLET PO SCH (10:35)
[2021-04-02] MEDS: Gabapentin 300 MG CAPSULE PO SCH ×2 (10:35→21:13)
[2021-04-02] MEDS: predniSONE 20 MG TABLET PO SCH (10:35)
[2021-04-02] MEDS: Fluticasone Propionate Nasal 50 MCG/SPRAY BOTTLE NS SCH (10:36)
[2021-04-02] MEDS: Budesonide/Formoterol 160/4.5 1 PUFF INH IH SCH ×2 (10:37→20:16)
[2021-04-02] MEDS ORDERED: *HR* LORazepam 2 MG/ML VIAL IVP ONE (20:46)
[2021-04-03 01:26] LABS: ABG Base Excess 10 mEq/L (-2 to 3); ABG HCO3 37 mEq/L (21-27); ABG Oxygen Saturation 100 % (95-98); ABG PCO2 63 mmHg (35-45); ABG PH 7.38 pH Units (7.32-7.45); ABG PO2 253 mmHg (85-104); ABG TCO2 39 mEq/L (20-26); Blood Gas VT 400 cc
[2021-04-03] MEDS: Ipratropium/Albuterol Neb 3 ML IH SCH ×3 (04:25→15:10)
[2021-04-03] MEDS: *HR* Enoxaparin 40 MG/0.4 ML SYRINGE SQ SCH (05:44)
[2021-04-03 06:45] LABS: Hematocrit 34.8 % (35.3-44.9); Hemoglobin 11.2 g/dL (11.5-15.4); Mean Corpuscular HGB Conc 32.2 g/dL (31.6-35.5); Mean Corpuscular Hemoglobin 30.3 pg (28.0-33.3); Mean Corpuscular Volume 94.1 fL (83.0-100.0); Mean Platelet Volume 10.4 fL (9.4-12.4); Platelet Count 184 K/mcL (140-400); Red Cell Distribution Width 13.8 % (11.5-14.5); White Blood Count 7.4 K/mcL (4.3-11.1)
[2021-04-03 06:54] LABS: VBG HCO3 38 mEq/L (21-27); VBG PCO2 84 mmHg (41-51); VBG PH 7.26 pH Units (7.32-7.42); VBG PO2 28 mmHg (25-50)
[2021-04-03 06:58] VITALS: TEMP 98
[2021-04-03 07:04] LABS: BUN/Creatinine Ratio 29 (6-26); Blood Urea Nitrogen 18 mg/dL (8-23); Calcium 9.7 mg/dL (8.6-10.3); Carbon Dioxide 40 mEq/L (23-29); Chloride 98 mEq/L (98-107); Glucose 65 mg/dL (70-105); Osmolality,Calculated 292 (280-300); Potassium 3.6 mEq/L (3.5-5.1); Sodium 141 mEq/L (136-145); eGFR For African Americans > 60 (> 60); eGFR For Non-African Americans > 60 (> 60)
[2021-04-03] MEDS ORDERED: Haloperidol Lactate 5 MG/ML VIAL IVP PRN (07:59)
[2021-04-03] MEDS: Budesonide/Formoterol 160/4.5 1 PUFF INH IH SCH (08:08)
[2021-04-03 10:05] VITALS: BP 110/67; PULSE 99; O2SAT 99
[2021-04-03] MEDS: ARIPiprazole 5 MG TABLET PO SCH (10:28)
[2021-04-03] MEDS: Gabapentin 300 MG CAPSULE PO SCH (10:28)
[2021-04-03] MEDS: predniSONE 20 MG TABLET PO SCH (10:28)
[2021-04-03] MEDS: Fluticasone Propionate Nasal 50 MCG/SPRAY BOTTLE NS SCH (10:29)
== END 2021-04-03 16:42 | DRG 177 ==
LOC: EMEROOARM 07:10 → 3ANU 07:10 → SUATTDRO 11:25 → 3ANU 12:38 → SUATTDRO 03-20 15:25
PROVIDERS: ADMIT Family Medicine; ATTEND Internal Medicine

== ENCOUNTER 2021-07-03 01:45 | Inpatient (IN) ==
[2021-07-03] MEDS ORDERED: Budesonide Neb 0.5 MG/2 ML IH ONE (02:05)
[2021-07-03] MEDS ORDERED: Ipratropium/Albuterol Neb 3 ML IH ONE (02:05)
[2021-07-03 03:02] LABS: VBG HCO3 35 mEq/L (21-27); VBG PCO2 71 mmHg (41-51); VBG PO2 84 mmHg (25-50)
[2021-07-03 03:04] LABS: Basophils % 0.3 %; Eosinophils # 0.1 K/mcL (0.0-0.6); Hematocrit 36.4 % (35.3-44.9); Hemoglobin 11.6 g/dL (11.5-15.4); Immature Granulocytes % 0.5 % (0-4); Lymphocytes # 1.4 K/mcL (0.6-4.6); Lymphocytes % 23.3 %; Mean Corpuscular HGB Conc 31.9 g/dL (31.6-35.5); Mean Corpuscular Hemoglobin 29.3 pg (28.0-33.3); Mean Corpuscular Volume 91.9 fL (83.0-100.0); Mean Platelet Volume 9.3 fL (9.4-12.4); Monocytes # 0.5 K/mcL (0.0-1.3); Monocytes % 8.8 %; Neutrophils # 3.9 K/mcL (1.6-8.9); Platelet Count 162 K/mcL (140-400); Red Blood Count 3.96 M/mcL (3.82-4.97); Segmented Neutrophils % 65.1 %
[2021-07-03 03:22] LABS: Alanine Aminotransferase 13 Units/L (7-52); Albumin/Globulin Ratio 1.7 (1.1-2.2); Alkaline Phosphatase 75 Units/L (34-104); Aspartate Amino Transferase 18 Units/L (13-39); BUN/Creatinine Ratio 13 (6-26); Bilirubin,Total 0.4 mg/dL (0.3-1.0); Blood Urea Nitrogen 9 mg/dL (8-23); Calcium 9.3 mg/dL (8.6-10.3); Carbon Dioxide 35 mEq/L (23-29); Chloride 98 mEq/L (98-107); Globulin 2.3 g/dL (2.4-3.5); Glucose 99 mg/dL (70-105); Osmolality,Calculated 283 (280-300); Potassium 3.6 mEq/L (3.5-5.1); Sodium 137 mEq/L (136-145); Total Protein 6.3 g/dL (6.4-8.9); eGFR For African Americans > 60 (> 60); eGFR For Non-African Americans > 60 (> 60)
[2021-07-03 03:23] LABS: Troponin I < 0.03 ng/mL (< 0.04)
[2021-07-03] MEDS ORDERED: Ondansetron ODT 4 MG TAB.RAPDIS SL PRN (03:38)
[2021-07-03] MEDS ORDERED: *HR* OxyCODONE Immed Rel 5 MG TABLET PO PRN (03:38)
[2021-07-03] MEDS ORDERED: Naloxone 0.4 MG/ML INJ IVP PRN (03:38)
[2021-07-03] MEDS ORDERED: Acetaminophen 325 MG TABLET PO PRN (03:38)
[2021-07-03] MEDS ORDERED: levoFLOXacin 750 MG/150 ML 750 MG/150 ML BAG IVPB ONE (04:00)
[2021-07-03] MEDS: Ipratropium/Albuterol Neb 3 ML IH SCH ×6 (04:34→23:31)
[2021-07-03 04:35] LABS: Influenza A PCR Negative (Negative); Influenza B PCR Negative (Negative); Resp. Syncytial Virus PCR Negative (Negative); SARS-CoV-2 by PCR (In House) Negative (Negative)
[2021-07-03] MEDS: *HR* Heparin 5,000 UNIT/ML VIAL SQ SCH ×2 (06:05→16:46)
[2021-07-03] MEDS ORDERED: methylPREDNISolone 125 MG/2 ML VIAL IVP SCH (08:00)
[2021-07-03 11:00] LABS: ABG Base Excess 7 mEq/L (-2 to 3); ABG HCO3 36 mEq/L (21-27); ABG Oxygen Saturation 94 % (95-98); ABG PCO2 77 mmHg (35-45); ABG PH 7.28 pH Units (7.32-7.45); ABG PO2 81 mmHg (85-104); ABG TCO2 39 mEq/L (20-26)
[2021-07-03] MEDS: Benzonatate 100 MG CAPSULE PO PRN ×2 (14:33→23:51)
[2021-07-03] MEDS: *HR* HYDROcodone/Acet 5/325 mg TABLET PO PRN ×2 (14:33→21:05)
[2021-07-03] MEDS: methylPREDNISolone 125 MG/2 ML VIAL IVP SCH ×2 (16:46→23:51)
[2021-07-03 18:57] LABS: Bacteria,Urine Few per hpf (None-Few); Bilirubin,Urine Negative (Negative); Blood,Urine Trace (Negative); Budding Yeast,Urine Few per hpf (None Seen); Clarity,Urine Turbid (Clear); Color,Urine Light-Yellow (Yellow); Glucose,Urine (UA) 70 mg/dL (Normal); Ketones,Urine Negative (Negative); Leukocyte Esterase,Urine Large (Negative); Mucus,Urine Few per lpf (None-Few); Nitrite,Urine Negative (Negative); Protein,Urine Negative (Neg-Trace); Squamous Epithelial Cell,Urine Few per hpf (None-Few); Urobilinogen,Urine Normal (Normal); WBC,Urine TNTC per hpf (0-3)
[2021-07-03] MEDS: Loratadine 10 MG TABLET PO SCH (21:05)
[2021-07-04 02:38] LABS: Hematocrit 33.7 % (35.3-44.9); Hemoglobin 10.6 g/dL (11.5-15.4); Immature Granulocytes % 0.6 % (0-4); Lymphocytes # 0.4 K/mcL (0.6-4.6); Lymphocytes % 7.8 %; Mean Corpuscular HGB Conc 31.5 g/dL (31.6-35.5); Mean Corpuscular Hemoglobin 28.9 pg (28.0-33.3); Mean Corpuscular Volume 91.8 fL (83.0-100.0); Mean Platelet Volume 9.7 fL (9.4-12.4); Monocytes # 0.1 K/mcL (0.0-1.3); Monocytes % 2.2 %; Neutrophils # 4.5 K/mcL (1.6-8.9); Platelet Count 161 K/mcL (140-400); Red Blood Count 3.67 M/mcL (3.82-4.97); Red Cell Distribution Width 12.7 % (11.5-14.5); Segmented Neutrophils % 89.4 %
[2021-07-04 03:01] LABS: Alanine Aminotransferase 11 Units/L (7-52); Albumin 3.8 g/dL (3.5-5.7); Albumin/Globulin Ratio 1.7 (1.1-2.2); Alkaline Phosphatase 67 Units/L (34-104); Aspartate Amino Transferase 13 Units/L (13-39); BUN/Creatinine Ratio 28 (6-26); Bilirubin,Total 0.3 mg/dL (0.3-1.0); Blood Urea Nitrogen 19 mg/dL (8-23); Calcium 9.2 mg/dL (8.6-10.3); Carbon Dioxide 34 mEq/L (23-29); Chloride 101 mEq/L (98-107); Globulin 2.2 g/dL (2.4-3.5); Glucose 150 mg/dL (70-105); Magnesium 2.2 mg/dL (1.6-2.6); Osmolality,Calculated 287 (280-300); Potassium 4.4 mEq/L (3.5-5.1); Sodium 136 mEq/L (136-145); eGFR For African Americans > 60 (> 60); eGFR For Non-African Americans > 60 (> 60)
[2021-07-04] MEDS: Ipratropium/Albuterol Neb 3 ML IH SCH ×6 (03:36→23:49)
[2021-07-04] MEDS: *HR* Heparin 5,000 UNIT/ML VIAL SQ SCH ×2 (06:07→17:06)
[2021-07-04] MEDS: Menthol 1 EACH LOZENGE PO PRN ×2 (08:13→20:46)
[2021-07-04] MEDS ORDERED: Ketoconazole 2% CRM 15 GM TUBE TP PRN (08:14)
[2021-07-04] MEDS ORDERED: hydrOXYzine pamoate 25 MG CAPSULE PO PRN (08:14)
[2021-07-04] MEDS: Loratadine 10 MG TABLET PO SCH (09:14)
[2021-07-04] MEDS: Cholecalciferol (D-3) 1,000 UNIT (25MCG) TABLET PO SCH (09:14)
[2021-07-04] MEDS: Gabapentin 300 MG CAPSULE PO SCH ×2 (09:14→20:44)
[2021-07-04] MEDS: levoFLOXacin 750 MG TABLET PO SCH (09:15)
[2021-07-04] MEDS: ARIPiprazole 10 MG TABLET PO SCH (09:15)
[2021-07-04] MEDS: Fluticasone Propionate Nasal 50 MCG/SPRAY BOTTLE NS SCH (09:16)
[2021-07-04] MEDS: *HR* HYDROcodone/Acet 5/325 mg TABLET PO PRN ×2 (09:56→15:56)
[2021-07-04] MEDS: methylPREDNISolone 125 MG/2 ML VIAL IVP SCH (10:27)
[2021-07-04] MEDS: Budesonide/Formoterol 160/4.5 1 PUFF INH IH SCH ×2 (11:23→20:56)
[2021-07-04] MEDS: Benzonatate 100 MG CAPSULE PO PRN (15:56)
[2021-07-04] MEDS ORDERED: MethylPREDNISolone 40 MG/ML VIAL IVP SCH (16:00)
[2021-07-04] MEDS: MethylPREDNISolone 40 MG/ML VIAL IVP SCH (17:06)
[2021-07-04] MEDS: clonazePAM 1 MG TABLET PO PRN (20:44)
[2021-07-05] MEDS: Ipratropium/Albuterol Neb 3 ML IH SCH ×5 (03:42→20:07)
[2021-07-05] MEDS: MethylPREDNISolone 40 MG/ML VIAL IVP SCH ×2 (04:21→16:57)
[2021-07-05] MEDS: Cholecalciferol (D-3) 1,000 UNIT (25MCG) TABLET PO SCH (04:21)
[2021-07-05] MEDS: *HR* Heparin 5,000 UNIT/ML VIAL SQ SCH ×2 (04:22→16:57)
[2021-07-05] MEDS: Budesonide/Formoterol 160/4.5 1 PUFF INH IH SCH ×2 (07:38→20:07)
[2021-07-05] MEDS: Gabapentin 300 MG CAPSULE PO SCH ×2 (08:59→20:35)
[2021-07-05] MEDS: levoFLOXacin 750 MG TABLET PO SCH (08:59)
[2021-07-05] MEDS: ARIPiprazole 10 MG TABLET PO SCH (09:00)
[2021-07-05] MEDS: Loratadine 10 MG TABLET PO SCH (09:00)
[2021-07-05] MEDS: Fluticasone Propionate Nasal 50 MCG/SPRAY BOTTLE NS SCH (09:01)
[2021-07-05] MEDS: clonazePAM 1 MG TABLET PO PRN ×2 (14:46→20:36)
[2021-07-05] MEDS: Benzonatate 100 MG CAPSULE PO PRN (20:39)
[2021-07-06] MEDS: Ipratropium/Albuterol Neb 3 ML IH SCH ×5 (01:00→15:08)
[2021-07-06] MEDS: MethylPREDNISolone 40 MG/ML VIAL IVP SCH (05:57)
[2021-07-06] MEDS: *HR* Heparin 5,000 UNIT/ML VIAL SQ SCH (06:03)
[2021-07-06] MEDS: clonazePAM 1 MG TABLET PO PRN ×2 (06:04→15:53)
[2021-07-06] MEDS: ARIPiprazole 10 MG TABLET PO SCH (07:41)
[2021-07-06] MEDS: Gabapentin 300 MG CAPSULE PO SCH (07:41)
[2021-07-06] MEDS: Cholecalciferol (D-3) 1,000 UNIT (25MCG) TABLET PO SCH (07:41)
[2021-07-06] MEDS: levoFLOXacin 750 MG TABLET PO SCH (07:41)
[2021-07-06] MEDS: Loratadine 10 MG TABLET PO SCH (07:41)
[2021-07-06] MEDS: Fluticasone Propionate Nasal 50 MCG/SPRAY BOTTLE NS SCH (07:42)
[2021-07-06] MEDS: Budesonide/Formoterol 160/4.5 1 PUFF INH IH SCH (08:42)
[2021-07-06 11:14] VITALS: BP 100/65; PULSE 86; TEMP 98.2; O2SAT 98
[2021-07-06] MEDS: *HR* HYDROcodone/Acet 5/325 mg TABLET PO PRN (14:13)
[2021-07-06] MEDS: Benzonatate 100 MG CAPSULE PO PRN (14:14)
== END 2021-07-06 16:00 | disposition home health service (06) | DRG 190 ==
LOC: EMEROOARM 01:45 → 3BNU 01:45 → SUATTDRO 03:54 → 3BNU 05:45 → SUATTDRO 13:49
PROVIDERS: ADMIT Internal Medicine; ATTEND Internal Medicine

== ENCOUNTER 2021-08-19 22:18 | Observation (INO) ==
[2021-08-19] MEDS ORDERED: methylPREDNISolone 125 MG/2 ML VIAL IVP ONE (22:26)
[2021-08-19] MEDS ORDERED: Ipratropium/Albuterol Neb 3 ML IH ONE (22:37)
[2021-08-19] MEDS ORDERED: Ringers Solution, Lactated 2,000 ML IVC ONE (22:41)
[2021-08-19] MEDS ORDERED: Cefepime HCl 2,000 MG in 0.9 % Sodium Chloride Mini Bag 100 ML IVPB ONE (23:00)
[2021-08-19 23:37] LABS: VBG HCO3 30 mEq/L (21-27); VBG PCO2 44 mmHg (41-51); VBG PH 7.44 pH Units (7.32-7.42); VBG PO2 172 mmHg (25-50)
[2021-08-19 23:40] LABS: BUN/Creatinine Ratio 16 (6-26); Blood Urea Nitrogen 9 mg/dL (8-23); Calcium 8.6 mg/dL (8.6-10.3); Carbon Dioxide 30 mEq/L (23-29); Chloride 95 mEq/L (98-107); Glucose 184 mg/dL (70-105); Osmolality,Calculated 277 (280-300); Potassium 4.3 mEq/L (3.5-5.1); Sodium 132 mEq/L (136-145); eGFR For African Americans > 60 (> 60); eGFR For Non-African Americans > 60 (> 60)
[2021-08-19 23:41] LABS: Troponin I < 0.03 ng/mL (< 0.04)
[2021-08-20 00:05] LABS: Basophils % 0.2 %; Hematocrit 31.7 % (35.3-44.9); Hemoglobin 10.5 g/dL (11.5-15.4); Immature Granulocytes % 0.3 % (0-4); Lymphocytes # 0.6 K/mcL (0.6-4.6); Lymphocytes % 4.5 %; Mean Corpuscular HGB Conc 33.1 g/dL (31.6-35.5); Mean Corpuscular Hemoglobin 29.8 pg (28.0-33.3); Mean Corpuscular Volume 90.1 fL (83.0-100.0); Mean Platelet Volume 9.3 fL (9.4-12.4); Monocytes # 0.9 K/mcL (0.0-1.3); Monocytes % 7.1 %; Neutrophils # 10.6 K/mcL (1.6-8.9); Platelet Count 180 K/mcL (140-400); Red Blood Count 3.52 M/mcL (3.82-4.97); Red Cell Distribution Width 14.8 % (11.5-14.5); Segmented Neutrophils % 87.9 %; White Blood Count 12.1 K/mcL (4.3-11.1)
[2021-08-20] MEDS ORDERED: Ipratropium/Albuterol Neb 3 ML IH ONE (00:06)
[2021-08-20] MEDS ORDERED: Naloxone 0.4 MG/ML INJ IVP ONE (00:29)
[2021-08-20 02:05] LABS: Amphetamine Screen,Urine Negative ng/mL (Cutoff=1000); Barbiturate Screen,Urine Negative ng/mL (Cutoff=200); Benzodiazepines Screen,Urine Negative ng/mL (Cutoff=200); Cannabinoid Screen,Urine Negative ng/mL (Cutoff = 50); Cocaine Screen,Urine Positive ng/mL (Cutoff= 300); Opiate Screen,Urine Negative ng/mL (Cutoff=300); Phencyclidine Screen,Urine Negative ng/mL (Cutoff=25)
[2021-08-20 02:12] LABS: Bilirubin,Urine Negative (Negative); Blood,Urine Trace (Negative); Clarity,Urine Clear (Clear); Color,Urine Light-Yellow (Yellow); Glucose,Urine (UA) 500 mg/dL (Normal); Ketones,Urine Negative (Negative); Leukocyte Esterase,Urine Small (Negative); Nitrite,Urine Positive (Negative); Protein,Urine Trace mg/dL (Neg-Trace); RBC,Urine 0-3 per hpf (0-3); Specific Gravity,Urine 1.009 (1.010-1.025); Squamous Epithelial Cell,Urine Few per hpf (None-Few); Urobilinogen,Urine Normal (Normal)
[2021-08-20 02:30] LABS: Thyroid Stimulating Hormone 3.348 mcIU/mL (0.340-5.600)
[2021-08-20 03:35] LABS: Influenza A PCR Negative (Negative); Influenza B PCR Negative (Negative); Resp. Syncytial Virus PCR Negative (Negative)
[2021-08-20 03:44] LABS: SARS-CoV-2 by PCR (In House) Negative (Negative)
[2021-08-20] MEDS ORDERED: 0.9 % Sodium Chloride 500 ML IVC ONE (03:46)
[2021-08-20] MEDS ORDERED: Ondansetron 4 MG/2 ML VIAL IVP PRN (03:57)
[2021-08-20] MEDS: Ipratropium/Albuterol Neb 3 ML IH SCH ×6 (04:04→23:23)
[2021-08-20] MEDS: Azithromycin 500 MG in 0.9 % Sodium Chloride 250 ML IVPB SCH (05:39)
[2021-08-20] MEDS: MethylPREDNISolone 40 MG/ML VIAL IVP SCH ×2 (05:39→12:15)
[2021-08-20] MEDS: *HR* Heparin 5,000 UNIT/ML VIAL SQ SCH ×3 (05:40→20:09)
[2021-08-20] MEDS: 0.9 % Sodium Chloride 1,000 ML IVC SCH ×2 (05:40→20:09)
[2021-08-20 05:55] LABS: Amphetamine Screen,Urine Negative ng/mL (Cutoff=1000); Barbiturate Screen,Urine Negative ng/mL (Cutoff=200); Benzodiazepines Screen,Urine Negative ng/mL (Cutoff=200); Cannabinoid Screen,Urine Negative ng/mL (Cutoff = 50); Cocaine Screen,Urine Positive ng/mL (Cutoff= 300); Opiate Screen,Urine Negative ng/mL (Cutoff=300); Phencyclidine Screen,Urine Negative ng/mL (Cutoff=25)
[2021-08-20 07:29] LABS: Hematocrit 27.7 % (35.3-44.9); Hemoglobin 9.1 g/dL (11.5-15.4); Mean Corpuscular HGB Conc 32.9 g/dL (31.6-35.5); Mean Corpuscular Hemoglobin 28.7 pg (28.0-33.3); Mean Corpuscular Volume 87.4 fL (83.0-100.0); Mean Platelet Volume 9.1 fL (9.4-12.4); Platelet Count 143 K/mcL (140-400); Red Blood Count 3.17 M/mcL (3.82-4.97); Red Cell Distribution Width 14.2 % (11.5-14.5); White Blood Count 8.3 K/mcL (4.3-11.1)
[2021-08-20 07:51] LABS: BUN/Creatinine Ratio 16 (6-26); Blood Urea Nitrogen 8 mg/dL (8-23); Calcium 8.2 mg/dL (8.6-10.3); Carbon Dioxide 35 mEq/L (23-29); Chloride 102 mEq/L (98-107); Glucose 151 mg/dL (70-105); Osmolality,Calculated 289 (280-300); Sodium 139 mEq/L (136-145); eGFR For African Americans > 60 (> 60); eGFR For Non-African Americans > 60 (> 60)
[2021-08-20] MEDS: cefTRIAXone 1,000 MG in 0.9 % Sodium Chloride 10 ML IVP SCH (08:53)
[2021-08-20] MEDS: Benzonatate 100 MG CAPSULE PO PRN ×2 (16:58→23:44)
[2021-08-20] MEDS: Acetaminophen 325 MG TABLET PO PRN ×2 (16:58→23:44)
[2021-08-20] MEDS ORDERED: MethylPREDNISolone 40 MG/ML VIAL IVP SCH (18:00)
[2021-08-20] MEDS ORDERED: Cefepime HCl 2,000 MG in 0.9 % Sodium Chloride Mini Bag 100 ML IVPB ONE (22:40)
[2021-08-21] MEDS ORDERED: *HR* LORazepam 2 MG/ML VIAL IVP ONE (00:16)
[2021-08-21 01:18] LABS: Basophils % 0.2 %; Hematocrit 25.8 % (35.3-44.9); Hemoglobin 8.5 g/dL (11.5-15.4); Immature Granulocytes % 0.6 % (0-4); Lymphocytes # 0.3 K/mcL (0.6-4.6); Lymphocytes % 4.3 %; Mean Corpuscular HGB Conc 32.9 g/dL (31.6-35.5); Mean Corpuscular Hemoglobin 29.4 pg (28.0-33.3); Mean Corpuscular Volume 89.3 fL (83.0-100.0); Mean Platelet Volume 9.7 fL (9.4-12.4); Monocytes # 0.2 K/mcL (0.0-1.3); Monocytes % 2.6 %; Platelet Count 150 K/mcL (140-400); Red Blood Count 2.89 M/mcL (3.82-4.97); Red Cell Distribution Width 14.2 % (11.5-14.5); Segmented Neutrophils % 92.3 %; White Blood Count 6.5 K/mcL (4.3-11.1)
[2021-08-21 01:32] LABS: BUN/Creatinine Ratio 19 (6-26); Blood Urea Nitrogen 12 mg/dL (8-23); Calcium 8.2 mg/dL (8.6-10.3); Carbon Dioxide 33 mEq/L (23-29); Chloride 103 mEq/L (98-107); Glucose 157 mg/dL (70-105); Osmolality,Calculated 293 (280-300); Phosphorous 1.7 mg/dL (2.7-4.5); Potassium 3.6 mEq/L (3.5-5.1); Sodium 140 mEq/L (136-145); eGFR For African Americans > 60 (> 60); eGFR For Non-African Americans > 60 (> 60)
[2021-08-21] MEDS: Ipratropium/Albuterol Neb 3 ML IH SCH ×6 (03:38→23:25)
[2021-08-21] MEDS: Azithromycin 500 MG in 0.9 % Sodium Chloride 250 ML IVPB SCH (03:48)
[2021-08-21] MEDS: *HR* Heparin 5,000 UNIT/ML VIAL SQ SCH ×3 (05:07→20:05)
[2021-08-21] MEDS ORDERED: Fluticasone Propionate Nasal 50 MCG/SPRAY BOTTLE NS PRN (07:28)
[2021-08-21] MEDS ORDERED: hydrOXYzine pamoate 25 MG CAPSULE PO PRN (07:28)
[2021-08-21] MEDS ORDERED: clonazePAM 1 MG TABLET PO PRN (07:28)
[2021-08-21] MEDS: predniSONE 20 MG TABLET PO SCH (07:35)
[2021-08-21] MEDS: Acetaminophen 325 MG TABLET PO PRN (07:35)
[2021-08-21] MEDS: Benzonatate 100 MG CAPSULE PO PRN ×2 (07:35→20:05)
[2021-08-21] MEDS: cefTRIAXone 1,000 MG in 0.9 % Sodium Chloride 10 ML IVP SCH (07:36)
[2021-08-21] MEDS ORDERED: NON-FORMULARY MEDICATION 1 EACH EACH (Fluticasone/Umeclidin/Vilanter [Trelegy Ellipta 100- IH SCH (09:00)
[2021-08-21] MEDS: Roflumilast [Daliresp] 500 MCG Tablet PO SCH (09:05)
[2021-08-21] MEDS: Gabapentin 300 MG CAPSULE PO SCH ×2 (09:08→20:05)
[2021-08-21] MEDS: Budesonide/Formoterol 160/4.5 1 PUFF INH IH SCH ×2 (11:20→19:24)
[2021-08-21] MEDS: Tiotropium 10 INH DOSE IH SCH (11:21)
[2021-08-21] MEDS ORDERED: MethylPREDNISolone 40 MG/ML VIAL IVP ONE (12:00)
[2021-08-21] MEDS ORDERED: ARIPiprazole 10 MG TABLET PO SCH (21:00)
[2021-08-22] MEDS: Ipratropium/Albuterol Neb 3 ML IH SCH ×3 (04:12→11:08)
[2021-08-22 04:18] LABS: Hematocrit 26.7 % (35.3-44.9); Hemoglobin 8.4 g/dL (11.5-15.4)
[2021-08-22 04:25] LABS: % Iron Saturation 30 % (15-50); BUN/Creatinine Ratio 23 (6-26); Blood Urea Nitrogen 13 mg/dL (8-23); Calcium 8.2 mg/dL (8.6-10.3); Carbon Dioxide 35 mEq/L (23-29); Chloride 105 mEq/L (98-107); Glucose 90 mg/dL (70-105); Iron 77 mcg/dL (50-170); Osmolality,Calculated 296 (280-300); Phosphorous 1.6 mg/dL (2.7-4.5); Potassium 3.5 mEq/L (3.5-5.1); Sodium 143 mEq/L (136-145); Transferrin 186 mg/dL (203-362); eGFR For African Americans > 60 (> 60); eGFR For Non-African Americans > 60 (> 60)
[2021-08-22 04:43] LABS: Ferritin 89 ng/mL (10-120)
[2021-08-22 04:48] LABS: Folate 13.4 ng/mL (3.0-16.0)
[2021-08-22] MEDS: *HR* Heparin 5,000 UNIT/ML VIAL SQ SCH ×2 (05:04→12:31)
[2021-08-22] MEDS: Azithromycin 500 MG in 0.9 % Sodium Chloride 250 ML IVPB SCH (05:04)
[2021-08-22] MEDS: Budesonide/Formoterol 160/4.5 1 PUFF INH IH SCH (07:16)
[2021-08-22] MEDS: Tiotropium 10 INH DOSE IH SCH (07:17)
[2021-08-22] MEDS: predniSONE 20 MG TABLET PO SCH (08:53)
[2021-08-22] MEDS: Gabapentin 300 MG CAPSULE PO SCH (08:54)
[2021-08-22] MEDS: cefTRIAXone 1,000 MG in 0.9 % Sodium Chloride 10 ML IVP SCH (08:54)
[2021-08-22] MEDS: Roflumilast [Daliresp] 500 MCG Tablet PO SCH (09:11)
[2021-08-22 14:28] VITALS: BP 126/73; PULSE 104; TEMP 97.6; O2SAT 98
== END 2021-08-22 15:09 | disposition home health service (06) ==
LOC: EMEROOARM 22:18 → 3BNU 22:18 → SUATTDRO 08-20 03:01 → 3BNU 08-20 03:40
PROVIDERS: ADMIT Internal Medicine; ATTEND Internal Medicine

== ENCOUNTER 2021-09-07 12:10 | Inpatient (IN) ==
[2021-09-07 13:47] LABS: Basophils % 0.4 %; Eosinophils # 0.1 K/mcL (0.0-0.6); Eosinophils % 1.7 %; Hematocrit 33.1 % (35.3-44.9); Hemoglobin 10.6 g/dL (11.5-15.4); Immature Granulocytes % 0.4 % (0-4); Lymphocytes # 1.1 K/mcL (0.6-4.6); Lymphocytes % 14.9 %; Mean Corpuscular Hemoglobin 29.1 pg (28.0-33.3); Mean Corpuscular Volume 90.9 fL (83.0-100.0); Mean Platelet Volume 9.1 fL (9.4-12.4); Monocytes # 0.6 K/mcL (0.0-1.3); Monocytes % 8.5 %; Neutrophils # 5.3 K/mcL (1.6-8.9); Platelet Count 165 K/mcL (140-400); Red Blood Count 3.64 M/mcL (3.82-4.97); Red Cell Distribution Width 14.5 % (11.5-14.5); Segmented Neutrophils % 74.1 %; White Blood Count 7.2 K/mcL (4.3-11.1)
[2021-09-07 14:17] LABS: BUN/Creatinine Ratio 17 (6-26); Blood Urea Nitrogen 12 mg/dL (8-23); Calcium 9.5 mg/dL (8.6-10.3); Carbon Dioxide 32 mEq/L (23-29); Chloride 98 mEq/L (98-107); Glucose 102 mg/dL (70-105); Osmolality,Calculated 286 (280-300); Sodium 138 mEq/L (136-145); eGFR For African Americans > 60 (> 60); eGFR For Non-African Americans > 60 (> 60)
[2021-09-07] MEDS ORDERED: Ipratropium/Albuterol Neb 3 ML IH ONE (15:52)
[2021-09-07 15:53] LABS: VBG HCO3 35 mEq/L (21-27); VBG PCO2 74 mmHg (41-51); VBG PH 7.28 pH Units (7.32-7.42); VBG PO2 44 mmHg (25-50)
[2021-09-07 16:16] LABS: Bilirubin,Urine Negative (Negative); Blood,Urine Large (Negative); Clarity,Urine Turbid (Clear); Color,Urine Yellow (Yellow); Glucose,Urine (UA) Normal (Normal); Ketones,Urine Negative (Negative); Leukocyte Esterase,Urine Negative (Negative); Mucus,Urine Few per lpf (None-Few); Nitrite,Urine Negative (Negative); PH,Urine 5.5 pH Units (5.0-8.0); Protein,Urine 70 mg/dL (Neg-Trace); RBC,Urine 0-3 per hpf (0-3); Specific Gravity,Urine 1.025 (1.010-1.025); Squamous Epithelial Cell,Urine Few per hpf (None-Few); Urobilinogen,Urine Normal (Normal); WBC,Urine 0-3 per hpf (0-3)
[2021-09-07 16:28] LABS: Amphetamine Screen,Urine Negative ng/mL (Cutoff=1000); Barbiturate Screen,Urine Negative ng/mL (Cutoff=200); Benzodiazepines Screen,Urine Positive ng/mL (Cutoff=200); Cannabinoid Screen,Urine Negative ng/mL (Cutoff = 50); Cocaine Screen,Urine Positive ng/mL (Cutoff= 300); Opiate Screen,Urine Positive ng/mL (Cutoff=300); Phencyclidine Screen,Urine Negative ng/mL (Cutoff=25)
[2021-09-07] MEDS ORDERED: Naloxone 0.4 MG/ML INJ IVP PRN (17:33)
[2021-09-08 01:24] LABS: Basophils % 0.5 %; Eosinophils # 0.1 K/mcL (0.0-0.6); Eosinophils % 1.5 %; Hematocrit 29.6 % (35.3-44.9); Hemoglobin 9.8 g/dL (11.5-15.4); Immature Granulocytes % 0.5 % (0-4); Lymphocytes # 1.2 K/mcL (0.6-4.6); Lymphocytes % 19.9 %; Mean Corpuscular HGB Conc 33.1 g/dL (31.6-35.5); Mean Corpuscular Hemoglobin 29.5 pg (28.0-33.3); Mean Corpuscular Volume 89.2 fL (83.0-100.0); Mean Platelet Volume 9.5 fL (9.4-12.4); Monocytes # 0.4 K/mcL (0.0-1.3); Monocytes % 7.2 %; Neutrophils # 4.2 K/mcL (1.6-8.9); Platelet Count 152 K/mcL (140-400); Red Blood Count 3.32 M/mcL (3.82-4.97); Red Cell Distribution Width 14.6 % (11.5-14.5); Segmented Neutrophils % 70.4 %
[2021-09-08 01:41] LABS: BUN/Creatinine Ratio 19 (6-26); Blood Urea Nitrogen 12 mg/dL (8-23); Carbon Dioxide 32 mEq/L (23-29); Chloride 100 mEq/L (98-107); Glucose 82 mg/dL (70-105); Osmolality,Calculated 285 (280-300); Potassium 3.7 mEq/L (3.5-5.1); Sodium 138 mEq/L (136-145); eGFR For African Americans > 60 (> 60); eGFR For Non-African Americans > 60 (> 60)
[2021-09-08] MEDS: *HR* Enoxaparin 40 MG/0.4 ML SYRINGE SQ SCH (05:59)
[2021-09-08 08:10] LABS: ABG Base Excess 5 mEq/L (-2 to 3); ABG HCO3 30 mEq/L (21-27); ABG Oxygen Saturation 99 % (95-98); ABG PCO2 49 mmHg (35-45); ABG PO2 122 mmHg (85-104); ABG TCO2 32 mEq/L (20-26)
[2021-09-08] MEDS ORDERED: Fluticasone Propionate Nasal 50 MCG/SPRAY BOTTLE NS PRN (11:38)
[2021-09-08] MEDS ORDERED: hydrOXYzine pamoate 25 MG CAPSULE PO PRN (11:38)
[2021-09-08] MEDS ORDERED: Ketoconazole 2% CRM 15 GM TUBE TP PRN (11:38)
[2021-09-08] MEDS: clonazePAM 1 MG TABLET PO PRN (17:53)
[2021-09-08] MEDS: Acetaminophen 325 MG TABLET PO PRN (17:56)
[2021-09-08] MEDS: Budesonide/Formoterol 160/4.5 1 PUFF INH IH SCH (19:55)
[2021-09-08] MEDS: Ipratropium/Albuterol Neb 3 ML IH PRN (19:55)
[2021-09-08] MEDS: Gabapentin 300 MG CAPSULE PO SCH (20:14)
[2021-09-09 01:45] LABS: Basophils % 0.2 %; Eosinophils # 0.1 K/mcL (0.0-0.6); Eosinophils % 1.9 %; Hemoglobin 9.7 g/dL (11.5-15.4); Immature Granulocytes % 0.5 % (0-4); Lymphocytes # 1.3 K/mcL (0.6-4.6); Lymphocytes % 31.1 %; Mean Corpuscular HGB Conc 33.4 g/dL (31.6-35.5); Mean Corpuscular Hemoglobin 30.4 pg (28.0-33.3); Mean Corpuscular Volume 90.9 fL (83.0-100.0); Mean Platelet Volume 9.4 fL (9.4-12.4); Monocytes # 0.4 K/mcL (0.0-1.3); Monocytes % 8.5 %; Neutrophils # 2.4 K/mcL (1.6-8.9); Platelet Count 150 K/mcL (140-400); Red Blood Count 3.19 M/mcL (3.82-4.97); Red Cell Distribution Width 14.2 % (11.5-14.5); Segmented Neutrophils % 57.8 %; White Blood Count 4.1 K/mcL (4.3-11.1)
[2021-09-09 02:04] LABS: BUN/Creatinine Ratio 18 (6-26); Blood Urea Nitrogen 12 mg/dL (8-23); Calcium 8.5 mg/dL (8.6-10.3); Carbon Dioxide 33 mEq/L (23-29); Chloride 100 mEq/L (98-107); Glucose 79 mg/dL (70-105); Osmolality,Calculated 287 (280-300); Potassium 3.5 mEq/L (3.5-5.1); Sodium 139 mEq/L (136-145); eGFR For African Americans > 60 (> 60); eGFR For Non-African Americans > 60 (> 60)
[2021-09-09] MEDS: *HR* Enoxaparin 40 MG/0.4 ML SYRINGE SQ SCH (05:38)
[2021-09-09] MEDS: Acetaminophen 325 MG TABLET PO PRN (06:13)
[2021-09-09] MEDS ORDERED: Tiotropium 10 INH DOSE IH ONE (07:46)
[2021-09-09] MEDS: Gabapentin 300 MG CAPSULE PO SCH ×2 (08:35→20:54)
[2021-09-09] MEDS: ARIPiprazole 10 MG TABLET PO SCH (08:35)
[2021-09-09] MEDS: clonazePAM 1 MG TABLET PO PRN ×2 (08:39→20:55)
[2021-09-09] MEDS ORDERED: NON-FORMULARY MEDICATION 1 EACH EACH (Fluticasone/Umeclidin/Vilanter [Trelegy Ellipta 100- IH SCH (09:00)
[2021-09-09] MEDS: Tiotropium 10 INH DOSE IH SCH (10:57)
[2021-09-09] MEDS: Budesonide/Formoterol 160/4.5 1 PUFF INH IH SCH ×2 (10:57→20:48)
[2021-09-09] MEDS: Pantoprazole 40 MG VIAL IVP SCH (11:53)
[2021-09-10] MEDS: *HR* Enoxaparin 40 MG/0.4 ML SYRINGE SQ SCH (05:25)
[2021-09-10] MEDS: clonazePAM 1 MG TABLET PO PRN (05:31)
[2021-09-10 06:28] VITALS: TEMP 97.6
[2021-09-10 06:49] LABS: Basophils % 0.3 %; Eosinophils # 0.1 K/mcL (0.0-0.6); Eosinophils % 2.5 %; Hemoglobin 9.1 g/dL (11.5-15.4); Immature Granulocytes % 1.1 % (0-4); Lymphocytes % 28.7 %; Mean Corpuscular HGB Conc 32.5 g/dL (31.6-35.5); Mean Corpuscular Hemoglobin 29.5 pg (28.0-33.3); Mean Corpuscular Volume 90.9 fL (83.0-100.0); Mean Platelet Volume 9.3 fL (9.4-12.4); Monocytes # 0.3 K/mcL (0.0-1.3); Monocytes % 7.4 %; Neutrophils # 2.2 K/mcL (1.6-8.9); Platelet Count 145 K/mcL (140-400); Red Blood Count 3.08 M/mcL (3.82-4.97); Red Cell Distribution Width 14.3 % (11.5-14.5); White Blood Count 3.6 K/mcL (4.3-11.1)
[2021-09-10 07:08] LABS: BUN/Creatinine Ratio 23 (6-26); Blood Urea Nitrogen 12 mg/dL (8-23); Calcium 8.7 mg/dL (8.6-10.3); Carbon Dioxide 33 mEq/L (23-29); Chloride 102 mEq/L (98-107); Glucose 105 mg/dL (70-105); Osmolality,Calculated 290 (280-300); Potassium 3.7 mEq/L (3.5-5.1); Sodium 140 mEq/L (136-145); eGFR For African Americans > 60 (> 60); eGFR For Non-African Americans > 60 (> 60)
[2021-09-10] MEDS: Gabapentin 300 MG CAPSULE PO SCH (07:36)
[2021-09-10] MEDS: Pantoprazole 40 MG VIAL IVP SCH (07:36)
[2021-09-10] MEDS: ARIPiprazole 10 MG TABLET PO SCH (07:36)
[2021-09-10] MEDS: Tiotropium 10 INH DOSE IH SCH (07:45)
[2021-09-10] MEDS: Budesonide/Formoterol 160/4.5 1 PUFF INH IH SCH (07:45)
[2021-09-10 11:06] VITALS: BP 123/68; PULSE 83
[2021-09-10] MEDS: Ipratropium/Albuterol Neb 3 ML IH PRN (13:43)
[2021-09-10 13:48] VITALS: O2SAT 98
== END 2021-09-10 14:39 | disposition home health service (06) | DRG 189 ==
LOC: EMEROOARM 12:10 → 3NENU 12:10 → SUATTDRO 17:33 → 3NENU 18:05
PROVIDERS: ADMIT Internal Medicine; ATTEND Internal Medicine

== ENCOUNTER 2021-12-19 06:22 | Inpatient (IN) ==
[2021-12-19] MEDS ORDERED: *HR* OxyCODONE Immed Rel 5 MG TABLET PO ONE (06:30)
[2021-12-19] MEDS ORDERED: Ipratropium/Albuterol Neb 3 ML IH ONE (06:30)
[2021-12-19] MEDS ORDERED: Famotidine 20 MG/2 ML VIAL IVP ONE (06:30)
[2021-12-19] MEDS ORDERED: Acetaminophen IV 1,000 MG/100 ML BAG IVPB ONE (06:30)
[2021-12-19] MEDS ORDERED: Albuterol 2.5 MG/3 ML NEBULIZER IH PRN (07:00)
[2021-12-19] MEDS ORDERED: *HR* FentaNYL (PF) 100 MCG/2 ML VIAL IVP PRN (07:00)
[2021-12-19] MEDS ORDERED: Ondansetron 4 MG/2 ML VIAL IVP PRN (07:00)
[2021-12-19] MEDS ORDERED: *HR* HYDROmorphone PF 0.5 MG/0.5 ML SYRINGE IVP PRN (07:00)
[2021-12-19] MEDS ORDERED: Iopamidol - 300 50 ML VIAL ONE (07:12)
[2021-12-19] MEDS ORDERED: *HR* Propofol 200 MG/20 ML VIAL IVP ONE (07:17)
[2021-12-19] MEDS ORDERED: *HR* Succinylcholine 200 MG/10 ML VIAL IVP ONE (07:23)
[2021-12-19] MEDS ORDERED: *HR* Rocuronium Bromide 50 MG/5 ML VIAL ONE (07:23)
[2021-12-19] MEDS ORDERED: Lidocaine -MPF 2% 5 ML VIAL ONE (07:23)
[2021-12-19] MEDS ORDERED: Ondansetron 4 MG/2 ML VIAL ONE (07:23)
[2021-12-19] MEDS ORDERED: CeFAZolin Syr 2,000MG/20 ML 2,000 MG/20 ML SYRINGE IVPB ONE (07:30)
[2021-12-19] MEDS: Ringers Solution, Lactated 1,000 ML IVC SCH (07:33)
[2021-12-19 09:28] LABS: Basophils % 0.4 %; Eosinophils % 0.6 %; Hematocrit 32.4 % (35.3-44.9); Hemoglobin 10.3 g/dL (11.5-15.4); Immature Granulocytes % 0.4 % (0-4); Lymphocytes # 1.1 K/mcL (0.6-4.6); Mean Corpuscular HGB Conc 31.8 g/dL (31.6-35.5); Mean Corpuscular Hemoglobin 28.9 pg (28.0-33.3); Mean Platelet Volume 9.6 fL (9.4-12.4); Monocytes # 0.4 K/mcL (0.0-1.3); Monocytes % 7.7 %; Neutrophils # 3.4 K/mcL (1.6-8.9); Platelet Count 141 K/mcL (140-400); Red Blood Count 3.56 M/mcL (3.82-4.97); Red Cell Distribution Width 13.4 % (11.5-14.5); Segmented Neutrophils % 68.9 %; White Blood Count 4.9 K/mcL (4.3-11.1)
[2021-12-19] MEDS ORDERED: Fluticasone Propionate Nasal 50 MCG/SPRAY BOTTLE NS PRN (09:50)
[2021-12-19] MEDS ORDERED: Naloxone 0.4 MG/ML INJ IVP PRN (09:52)
[2021-12-19] MEDS ORDERED: Ondansetron ODT 4 MG TAB.RAPDIS SL PRN (09:52)
[2021-12-19 10:20] LABS: BUN/Creatinine Ratio 12 (6-26); Blood Urea Nitrogen 7 mg/dL (8-23); Calcium 8.6 mg/dL (8.6-10.3); Carbon Dioxide 42 mEq/L (23-29); Chloride 98 mEq/L (98-107); Glucose 112 mg/dL (70-105); Magnesium 2.1 mg/dL (1.6-2.6); Osmolality,Calculated 293 (280-300); Potassium 3.5 mEq/L (3.5-5.1); Sodium 142 mEq/L (136-145); Troponin I < 0.03 ng/mL (< 0.04); eGFR For African Americans > 60 (> 60); eGFR For Non-African Americans > 60 (> 60)
[2021-12-19] MEDS ORDERED: MethylPREDNISolone 40 MG/ML VIAL IVP SCH (10:45)
[2021-12-19] MEDS: tiZANidine 4 MG TABLET PO SCH ×4 (11:03→21:17)
[2021-12-19] MEDS: Gabapentin 300 MG CAPSULE PO SCH ×2 (11:03→21:18)
[2021-12-19] MEDS: Ipratropium/Albuterol Neb 3 ML IH SCH ×3 (11:30→20:15)
[2021-12-19 11:37] LABS: ABG Base Excess 9 mEq/L (-2 to 3); ABG HCO3 37 mEq/L (21-27); ABG Oxygen Saturation 83 % (95-98); ABG PCO2 76 mmHg (35-45); ABG PO2 55 mmHg (85-104); ABG TCO2 40 mEq/L (20-26)
[2021-12-19 12:43] LABS: Adenovirus Not Detected (Not Detect); Bordetella Pertussis Not Detected (Not Detect); Chlamydophila pneumoniae Not Detected (Not Detect); Coronavirus 229E Not Detected (Not Detect); Coronavirus HKU1 Not Detected (Not Detect); Coronavirus NL63 Not Detected (Not Detect); Coronavirus OC43 Not Detected (Not Detect); Human Metapneumovirus Not Detected (Not Detect); Human Rhinovirus/Enterovirus Not Detected (Not Detect); Influenza A Subtype 2009 H1 Not Detected (Not Detect); Influenza B Not Detected (Not Detect); Mycoplasma pneumoniae Not Detected (Not Detect); Parainfluenza Virus 1 Not Detected (Not Detect); Parainfluenza Virus 2 Not Detected (Not Detect); Parainfluenza Virus 3 Not Detected (Not Detect); Parainfluenza Virus 4 Not Detected (Not Detect); Respiratory Syncytial Virus Not Detected (Not Detect); SARS-CoV-2 Not Detected (Not Detect)
[2021-12-19] MEDS: *HR* Heparin 5,000 UNIT/ML VIAL SQ SCH ×2 (13:18→21:18)
[2021-12-19] MEDS: Azithromycin 500 MG in 0.9 % Sodium Chloride 250 ML IVPB SCH (13:19)
[2021-12-19 16:14] LABS: ABG Base Excess 11 mEq/L (-2 to 3); ABG HCO3 39 mEq/L (21-27); ABG Oxygen Saturation 91 % (95-98); ABG PCO2 70 mmHg (35-45); ABG PH 7.36 pH Units (7.32-7.45); ABG PO2 66 mmHg (85-104); ABG TCO2 41 mEq/L (20-26); Blood Gas Pressure Support 14 cm H2O
[2021-12-19] MEDS: MethylPREDNISolone 40 MG/ML VIAL IVP SCH ×2 (17:24→23:40)
[2021-12-19] MEDS: Budesonide/Formoterol 160/4.5 1 PUFF INH IH SCH (20:15)
[2021-12-19] MEDS ORDERED: Gabapentin 300 MG CAPSULE PO SCH (21:00)
[2021-12-19] MEDS: hydrOXYzine pamoate 25 MG CAPSULE PO SCH (21:18)
[2021-12-19] MEDS: clonazePAM 1 MG TABLET PO PRN (21:20)
[2021-12-20] MEDS: Ipratropium/Albuterol Neb 3 ML IH SCH ×4 (03:11→21:35)
[2021-12-20] MEDS: *HR* Heparin 5,000 UNIT/ML VIAL SQ SCH ×3 (04:53→20:52)
[2021-12-20] MEDS: MethylPREDNISolone 40 MG/ML VIAL IVP SCH ×4 (04:53→23:48)
[2021-12-20 05:12] LABS: ABG Base Excess 9 mEq/L (-2 to 3); ABG HCO3 36 mEq/L (21-27); ABG Oxygen Saturation 64 % (95-98); ABG PCO2 60 mmHg (35-45); ABG PH 7.38 pH Units (7.32-7.45); ABG PO2 35 mmHg (85-104); ABG TCO2 37 mEq/L (20-26); Blood Gas Modality BiLevel
[2021-12-20 05:55] LABS: Basophils % 0.3 %; Hematocrit 31.9 % (35.3-44.9); Immature Granulocytes % 0.6 % (0-4); Lymphocytes # 0.4 K/mcL (0.6-4.6); Lymphocytes % 11.2 %; Mean Corpuscular HGB Conc 31.7 g/dL (31.6-35.5); Mean Corpuscular Hemoglobin 28.5 pg (28.0-33.3); Mean Corpuscular Volume 90.1 fL (83.0-100.0); Mean Platelet Volume 10.4 fL (9.4-12.4); Monocytes # 0.1 K/mcL (0.0-1.3); Monocytes % 2.4 %; Neutrophils # 2.8 K/mcL (1.6-8.9); Platelet Count 126 K/mcL (140-400); Red Blood Count 3.54 M/mcL (3.82-4.97); Red Cell Distribution Width 12.9 % (11.5-14.5); Segmented Neutrophils % 85.5 %
[2021-12-20 05:57] LABS: Hemoglobin 10.1 g/dL (11.5-15.4); White Blood Count 3.3 K/mcL (4.3-11.1)
[2021-12-20 07:19] LABS: BUN/Creatinine Ratio 20 (6-26); Blood Urea Nitrogen 11 mg/dL (8-23); Calcium 8.8 mg/dL (8.6-10.3); Carbon Dioxide 37 mEq/L (23-29); Chloride 97 mEq/L (98-107); Glucose 160 mg/dL (70-105); Magnesium 2.1 mg/dL (1.6-2.6); Osmolality,Calculated 289 (280-300); Potassium 4.4 mEq/L (3.5-5.1); Sodium 138 mEq/L (136-145); eGFR For African Americans > 60 (> 60); eGFR For Non-African Americans > 60 (> 60)
[2021-12-20] MEDS: hydrOXYzine pamoate 25 MG CAPSULE PO SCH ×3 (09:00→20:51)
[2021-12-20] MEDS: tiZANidine 4 MG TABLET PO SCH ×3 (09:49→20:51)
[2021-12-20] MEDS: Gabapentin 300 MG CAPSULE PO SCH ×2 (09:50→20:51)
[2021-12-20] MEDS: Patient Taking Own Medication 1 EACH PO SCH (09:51)
[2021-12-20] MEDS: Ringers Solution, Lactated 1,000 ML IVC SCH (09:51)
[2021-12-20] MEDS: Azithromycin 500 MG in 0.9 % Sodium Chloride 250 ML IVPB SCH (09:52)
[2021-12-20] MEDS: Budesonide/Formoterol 160/4.5 1 PUFF INH IH SCH ×2 (11:18→21:35)
[2021-12-20] MEDS: Tiotropium 10 INH DOSE IH SCH (11:20)
[2021-12-20] MEDS: clonazePAM 1 MG TABLET PO PRN ×2 (13:57→21:20)
[2021-12-21] MEDS: Ipratropium/Albuterol Neb 3 ML IH SCH ×4 (04:28→22:17)
[2021-12-21] MEDS: MethylPREDNISolone 40 MG/ML VIAL IVP SCH ×3 (05:12→17:50)
[2021-12-21] MEDS: *HR* Heparin 5,000 UNIT/ML VIAL SQ SCH ×3 (05:12→22:15)
[2021-12-21] MEDS: tiZANidine 4 MG TABLET PO SCH ×3 (09:13→20:01)
[2021-12-21] MEDS: Patient Taking Own Medication 1 EACH PO SCH (09:14)
[2021-12-21] MEDS: hydrOXYzine pamoate 25 MG CAPSULE PO SCH ×3 (09:14→20:01)
[2021-12-21] MEDS: Azithromycin 500 MG in 0.9 % Sodium Chloride 250 ML IVPB SCH (09:14)
[2021-12-21] MEDS: Gabapentin 300 MG CAPSULE PO SCH ×2 (09:14→20:02)
[2021-12-21] MEDS: Budesonide/Formoterol 160/4.5 1 PUFF INH IH SCH ×2 (10:25→22:17)
[2021-12-21] MEDS: Tiotropium 10 INH DOSE IH SCH (10:28)
[2021-12-21] MEDS: clonazePAM 1 MG TABLET PO PRN (20:01)
[2021-12-22] MEDS: MethylPREDNISolone 40 MG/ML VIAL IVP SCH ×4 (00:02→18:46)
[2021-12-22 03:07] LABS: Hematocrit 26.8 % (35.3-44.9); Hemoglobin 8.6 g/dL (11.5-15.4); Immature Granulocytes % 1.1 % (0-4); Lymphocytes # 0.3 K/mcL (0.6-4.6); Lymphocytes % 7.7 %; Mean Corpuscular HGB Conc 32.1 g/dL (31.6-35.5); Mean Corpuscular Hemoglobin 29.4 pg (28.0-33.3); Mean Corpuscular Volume 91.5 fL (83.0-100.0); Mean Platelet Volume 10.3 fL (9.4-12.4); Monocytes # 0.1 K/mcL (0.0-1.3); Monocytes % 3.8 %; Neutrophils # 3.2 K/mcL (1.6-8.9); Platelet Count 121 K/mcL (140-400); Red Blood Count 2.93 M/mcL (3.82-4.97); Red Cell Distribution Width 13.1 % (11.5-14.5); Segmented Neutrophils % 87.4 %; White Blood Count 3.7 K/mcL (4.3-11.1)
[2021-12-22 03:24] LABS: Alanine Aminotransferase 20 Units/L (7-52); Albumin 3.5 g/dL (3.5-5.7); Albumin/Globulin Ratio 1.8 (1.1-2.2); Alkaline Phosphatase 59 Units/L (34-104); Aspartate Amino Transferase 17 Units/L (13-39); BUN/Creatinine Ratio 28 (6-26); Bilirubin,Total 0.2 mg/dL (0.3-1.0); Blood Urea Nitrogen 19 mg/dL (8-23); Calcium 8.3 mg/dL (8.6-10.3); Carbon Dioxide 33 mEq/L (23-29); Chloride 101 mEq/L (98-107); Globulin 1.9 g/dL (2.4-3.5); Glucose 146 mg/dL (70-105); Osmolality,Calculated 293 (280-300); Potassium 3.8 mEq/L (3.5-5.1); Sodium 139 mEq/L (136-145); Total Protein 5.4 g/dL (6.4-8.9); eGFR For African Americans > 60 (> 60); eGFR For Non-African Americans > 60 (> 60)
[2021-12-22] MEDS: Ipratropium/Albuterol Neb 3 ML IH SCH ×5 (04:07→23:33)
[2021-12-22] MEDS: *HR* Heparin 5,000 UNIT/ML VIAL SQ SCH ×3 (06:01→20:32)
[2021-12-22] MEDS: Azithromycin 500 MG in 0.9 % Sodium Chloride 250 ML IVPB SCH (08:54)
[2021-12-22] MEDS: hydrOXYzine pamoate 25 MG CAPSULE PO SCH ×3 (08:55→20:31)
[2021-12-22] MEDS: Gabapentin 300 MG CAPSULE PO SCH ×2 (08:55→20:31)
[2021-12-22] MEDS: Patient Taking Own Medication 1 EACH PO SCH (08:56)
[2021-12-22 09:34] LABS: Hematocrit 31.9 % (35.3-44.9)
[2021-12-22] MEDS: Budesonide/Formoterol 160/4.5 1 PUFF INH IH SCH ×2 (11:25→19:59)
[2021-12-22] MEDS: Tiotropium 10 INH DOSE IH SCH (11:28)
[2021-12-22 11:29] LABS: ABG Base Excess 6 mEq/L (-2 to 3); ABG HCO3 32 mEq/L (21-27); ABG Oxygen Saturation 96 % (95-98); ABG PCO2 54 mmHg (35-45); ABG PH 7.38 pH Units (7.32-7.45); ABG PO2 84 mmHg (85-104); ABG TCO2 34 mEq/L (20-26); Blood Gas Modality ST
[2021-12-22] MEDS: clonazePAM 1 MG TABLET PO PRN (18:46)
[2021-12-22] MEDS ORDERED: Acetaminophen 325 MG TABLET PO PRN (20:34)
[2021-12-22] MEDS: Acetaminophen 325 MG TABLET PO PRN (20:58)
[2021-12-23] MEDS: MethylPREDNISolone 40 MG/ML VIAL IVP SCH ×5 (00:20→23:49)
[2021-12-23] MEDS: Ipratropium/Albuterol Neb 3 ML IH SCH ×6 (03:50→23:06)
[2021-12-23] MEDS: *HR* Heparin 5,000 UNIT/ML VIAL SQ SCH ×3 (06:41→20:08)
[2021-12-23] MEDS: Budesonide/Formoterol 160/4.5 1 PUFF INH IH SCH ×2 (07:34→19:50)
[2021-12-23] MEDS: Tiotropium 10 INH DOSE IH SCH (07:36)
[2021-12-23] MEDS: Azithromycin 500 MG in 0.9 % Sodium Chloride 250 ML IVPB SCH (09:13)
[2021-12-23] MEDS: Gabapentin 300 MG CAPSULE PO SCH ×2 (09:14→20:07)
[2021-12-23] MEDS: Patient Taking Own Medication 1 EACH PO SCH (09:14)
[2021-12-23] MEDS: hydrOXYzine pamoate 25 MG CAPSULE PO SCH ×3 (09:14→20:07)
[2021-12-23 09:31] LABS: Basophils % 0.3 %; Hematocrit 31.1 % (35.3-44.9); Hemoglobin 9.7 g/dL (11.5-15.4); Immature Granulocytes % 1.6 % (0-4); Lymphocytes # 0.4 K/mcL (0.6-4.6); Lymphocytes % 9.4 %; Mean Corpuscular HGB Conc 31.2 g/dL (31.6-35.5); Mean Corpuscular Hemoglobin 28.3 pg (28.0-33.3); Mean Corpuscular Volume 90.7 fL (83.0-100.0); Mean Platelet Volume 10.3 fL (9.4-12.4); Monocytes # 0.2 K/mcL (0.0-1.3); Monocytes % 4.2 %; Neutrophils # 3.2 K/mcL (1.6-8.9); Nucleated Red Blood Cells 0.5 /100 WBC (0); Platelet Count 138 K/mcL (140-400); Red Blood Count 3.43 M/mcL (3.82-4.97); Segmented Neutrophils % 84.5 %; White Blood Count 3.8 K/mcL (4.3-11.1)
[2021-12-23 09:51] LABS: Alanine Aminotransferase 33 Units/L (7-52); Albumin 3.7 g/dL (3.5-5.7); Albumin/Globulin Ratio 1.6 (1.1-2.2); Alkaline Phosphatase 64 Units/L (34-104); Aspartate Amino Transferase 22 Units/L (13-39); BUN/Creatinine Ratio 32 (6-26); Bilirubin,Total 0.3 mg/dL (0.3-1.0); Blood Urea Nitrogen 18 mg/dL (8-23); Calcium 8.3 mg/dL (8.6-10.3); Carbon Dioxide 34 mEq/L (23-29); Chloride 103 mEq/L (98-107); Globulin 2.3 g/dL (2.4-3.5); Glucose 120 mg/dL (70-105); Osmolality,Calculated 297 (280-300); Potassium 3.8 mEq/L (3.5-5.1); Sodium 142 mEq/L (136-145); eGFR For African Americans > 60 (> 60); eGFR For Non-African Americans > 60 (> 60)
[2021-12-23] MEDS: clonazePAM 1 MG TABLET PO PRN ×2 (11:49→20:07)
[2021-12-24 02:18] LABS: Hematocrit 29.7 % (35.3-44.9); Hemoglobin 9.2 g/dL (11.5-15.4); Immature Granulocytes % 1.6 % (0-4); Lymphocytes # 0.3 K/mcL (0.6-4.6); Lymphocytes % 7.3 %; Mean Corpuscular Hemoglobin 28.6 pg (28.0-33.3); Mean Corpuscular Volume 92.2 fL (83.0-100.0); Mean Platelet Volume 10.6 fL (9.4-12.4); Monocytes # 0.2 K/mcL (0.0-1.3); Neutrophils # 3.3 K/mcL (1.6-8.9); Platelet Count 135 K/mcL (140-400); Red Blood Count 3.22 M/mcL (3.82-4.97); Red Cell Distribution Width 13.2 % (11.5-14.5); Segmented Neutrophils % 86.1 %; White Blood Count 3.8 K/mcL (4.3-11.1)
[2021-12-24 02:35] LABS: Alanine Aminotransferase 34 Units/L (7-52); Albumin 3.5 g/dL (3.5-5.7); Albumin/Globulin Ratio 1.7 (1.1-2.2); Alkaline Phosphatase 62 Units/L (34-104); Aspartate Amino Transferase 20 Units/L (13-39); BUN/Creatinine Ratio 29 (6-26); Bilirubin,Total 0.2 mg/dL (0.3-1.0); Blood Urea Nitrogen 19 mg/dL (8-23); Calcium 8.3 mg/dL (8.6-10.3); Carbon Dioxide 37 mEq/L (23-29); Chloride 102 mEq/L (98-107); Globulin 2.1 g/dL (2.4-3.5); Glucose 152 mg/dL (70-105); Osmolality,Calculated 301 (280-300); Potassium 3.6 mEq/L (3.5-5.1); Sodium 143 mEq/L (136-145); Total Protein 5.6 g/dL (6.4-8.9); eGFR For African Americans > 60 (> 60); eGFR For Non-African Americans > 60 (> 60)
[2021-12-24] MEDS: Ipratropium/Albuterol Neb 3 ML IH SCH ×6 (04:12→23:53)
[2021-12-24] MEDS: *HR* Heparin 5,000 UNIT/ML VIAL SQ SCH ×3 (05:25→21:02)
[2021-12-24] MEDS: MethylPREDNISolone 40 MG/ML VIAL IVP SCH ×3 (05:25→17:46)
[2021-12-24] MEDS: Budesonide/Formoterol 160/4.5 1 PUFF INH IH SCH ×2 (07:24→20:16)
[2021-12-24] MEDS: Tiotropium 10 INH DOSE IH SCH (07:24)
[2021-12-24] MEDS: hydrOXYzine pamoate 25 MG CAPSULE PO SCH ×3 (07:48→21:02)
[2021-12-24] MEDS: Patient Taking Own Medication 1 EACH PO SCH (07:48)
[2021-12-24] MEDS: Gabapentin 300 MG CAPSULE PO SCH ×2 (07:48→21:02)
[2021-12-24] MEDS: Azithromycin 500 MG in 0.9 % Sodium Chloride 250 ML IVPB SCH (07:49)
[2021-12-24 09:39] LABS: VBG HCO3 36 mEq/L (21-27); VBG PCO2 60 mmHg (41-51); VBG PH 7.38 pH Units (7.32-7.42); VBG PO2 35 mmHg (25-50)
[2021-12-24] MEDS: clonazePAM 1 MG TABLET PO PRN ×2 (13:39→21:36)
[2021-12-24] MEDS: Acetaminophen 325 MG TABLET PO PRN (19:41)
[2021-12-25] MEDS: MethylPREDNISolone 40 MG/ML VIAL IVP SCH ×4 (01:07→18:20)
[2021-12-25 03:48] LABS: Hematocrit 27.6 % (35.3-44.9); Hemoglobin 8.8 g/dL (11.5-15.4); Immature Granulocytes % 1.5 % (0-4); Lymphocytes # 0.3 K/mcL (0.6-4.6); Lymphocytes % 8.5 %; Mean Corpuscular HGB Conc 31.9 g/dL (31.6-35.5); Mean Corpuscular Hemoglobin 28.9 pg (28.0-33.3); Mean Corpuscular Volume 90.8 fL (83.0-100.0); Mean Platelet Volume 10.3 fL (9.4-12.4); Monocytes # 0.2 K/mcL (0.0-1.3); Monocytes % 5.5 %; Neutrophils # 3.4 K/mcL (1.6-8.9); Nucleated Red Blood Cells 0.5 /100 WBC (0); Platelet Count 129 K/mcL (140-400); Red Blood Count 3.04 M/mcL (3.82-4.97); Red Cell Distribution Width 13.3 % (11.5-14.5); Segmented Neutrophils % 84.5 %
[2021-12-25] MEDS: Ipratropium/Albuterol Neb 3 ML IH SCH ×6 (03:52→23:04)
[2021-12-25 04:02] LABS: Alanine Aminotransferase 37 Units/L (7-52); Albumin 3.2 g/dL (3.5-5.7); Albumin/Globulin Ratio 1.7 (1.1-2.2); Alkaline Phosphatase 57 Units/L (34-104); Aspartate Amino Transferase 23 Units/L (13-39); BUN/Creatinine Ratio 36 (6-26); Bilirubin,Total 0.3 mg/dL (0.3-1.0); Blood Urea Nitrogen 21 mg/dL (8-23); Calcium 8.2 mg/dL (8.6-10.3); Carbon Dioxide 37 mEq/L (23-29); Chloride 101 mEq/L (98-107); Globulin 1.9 g/dL (2.4-3.5); Glucose 130 mg/dL (70-105); Osmolality,Calculated 297 (280-300); Potassium 3.8 mEq/L (3.5-5.1); Sodium 141 mEq/L (136-145); Total Protein 5.1 g/dL (6.4-8.9); eGFR For African Americans > 60 (> 60); eGFR For Non-African Americans > 60 (> 60)
[2021-12-25] MEDS: *HR* Heparin 5,000 UNIT/ML VIAL SQ SCH ×3 (05:35→21:10)
[2021-12-25] MEDS: Tiotropium 10 INH DOSE IH SCH (07:18)
[2021-12-25] MEDS: Budesonide/Formoterol 160/4.5 1 PUFF INH IH SCH ×2 (07:25→20:39)
[2021-12-25] MEDS: Azithromycin 500 MG in 0.9 % Sodium Chloride 250 ML IVPB SCH (09:02)
[2021-12-25] MEDS: Gabapentin 300 MG CAPSULE PO SCH ×2 (09:03→21:11)
[2021-12-25] MEDS: hydrOXYzine pamoate 25 MG CAPSULE PO SCH ×3 (09:04→21:10)
[2021-12-25] MEDS: Patient Taking Own Medication 1 EACH PO SCH (09:05)
[2021-12-25] MEDS: clonazePAM 1 MG TABLET PO PRN ×2 (11:15→21:10)
[2021-12-25] MEDS: Acetaminophen 325 MG TABLET PO PRN (14:55)
[2021-12-26 01:55] LABS: Hematocrit 27.6 % (35.3-44.9); Hemoglobin 8.7 g/dL (11.5-15.4); Immature Granulocytes % 2.7 % (0-4); Lymphocytes # 0.3 K/mcL (0.6-4.6); Lymphocytes % 7.5 %; Mean Corpuscular HGB Conc 31.5 g/dL (31.6-35.5); Mean Corpuscular Hemoglobin 28.5 pg (28.0-33.3); Mean Corpuscular Volume 90.5 fL (83.0-100.0); Mean Platelet Volume 9.9 fL (9.4-12.4); Monocytes # 0.3 K/mcL (0.0-1.3); Neutrophils # 3.4 K/mcL (1.6-8.9); Nucleated Red Blood Cells 0.5 /100 WBC (0); Platelet Count 136 K/mcL (140-400); Red Blood Count 3.05 M/mcL (3.82-4.97); Red Cell Distribution Width 13.2 % (11.5-14.5); Segmented Neutrophils % 82.8 %; White Blood Count 4.2 K/mcL (4.3-11.1)
[2021-12-26 02:05] LABS: Alanine Aminotransferase 39 Units/L (7-52); Albumin 3.2 g/dL (3.5-5.7); Albumin/Globulin Ratio 1.8 (1.1-2.2); Alkaline Phosphatase 60 Units/L (34-104); Aspartate Amino Transferase 19 Units/L (13-39); BUN/Creatinine Ratio 36 (6-26); Bilirubin,Total 0.3 mg/dL (0.3-1.0); Blood Urea Nitrogen 20 mg/dL (8-23); Carbon Dioxide 37 mEq/L (23-29); Chloride 101 mEq/L (98-107); Globulin 1.8 g/dL (2.4-3.5); Glucose 144 mg/dL (70-105); Osmolality,Calculated 299 (280-300); Potassium 3.5 mEq/L (3.5-5.1); Sodium 142 mEq/L (136-145); eGFR For African Americans > 60 (> 60); eGFR For Non-African Americans > 60 (> 60)
[2021-12-26] MEDS: Ipratropium/Albuterol Neb 3 ML IH SCH ×6 (04:11→23:42)
[2021-12-26] MEDS: MethylPREDNISolone 40 MG/ML VIAL IVP SCH ×4 (05:20→17:51)
[2021-12-26] MEDS: *HR* Heparin 5,000 UNIT/ML VIAL SQ SCH ×3 (05:20→21:35)
[2021-12-26] MEDS: Tiotropium 10 INH DOSE IH SCH (07:27)
[2021-12-26] MEDS: hydrOXYzine pamoate 25 MG CAPSULE PO SCH ×3 (08:39→21:35)
[2021-12-26] MEDS: Patient Taking Own Medication 1 EACH PO SCH (08:40)
[2021-12-26] MEDS: Gabapentin 300 MG CAPSULE PO SCH ×2 (08:40→21:34)
[2021-12-26] MEDS: clonazePAM 1 MG TABLET PO PRN ×2 (08:45→21:35)
[2021-12-26] MEDS: Budesonide/Formoterol 160/4.5 1 PUFF INH IH SCH ×2 (11:15→19:52)
[2021-12-27] MEDS: MethylPREDNISolone 40 MG/ML VIAL IVP SCH ×5 (00:26→23:46)
[2021-12-27] MEDS: Ipratropium/Albuterol Neb 3 ML IH SCH ×6 (04:09→22:50)
[2021-12-27 06:26] LABS: Basophils % 0.3 %; Hematocrit 28.3 % (35.3-44.9); Hemoglobin 8.9 g/dL (11.5-15.4); Immature Granulocytes % 4.4 % (0-4); Lymphocytes # 0.3 K/mcL (0.6-4.6); Lymphocytes % 9.4 %; Mean Corpuscular HGB Conc 31.4 g/dL (31.6-35.5); Mean Corpuscular Hemoglobin 28.7 pg (28.0-33.3); Mean Corpuscular Volume 91.3 fL (83.0-100.0); Mean Platelet Volume 9.6 fL (9.4-12.4); Monocytes # 0.2 K/mcL (0.0-1.3); Monocytes % 4.7 %; Neutrophils # 2.9 K/mcL (1.6-8.9); Nucleated Red Blood Cells 0.6 /100 WBC (0); Platelet Count 124 K/mcL (140-400); Red Cell Distribution Width 13.2 % (11.5-14.5); Segmented Neutrophils % 81.2 %; White Blood Count 3.6 K/mcL (4.3-11.1)
[2021-12-27] MEDS: *HR* Heparin 5,000 UNIT/ML VIAL SQ SCH ×3 (06:40→20:21)
[2021-12-27] MEDS: Budesonide/Formoterol 160/4.5 1 PUFF INH IH SCH ×2 (07:19→20:08)
[2021-12-27] MEDS: clonazePAM 1 MG TABLET PO PRN ×2 (08:59→23:45)
[2021-12-27] MEDS: Gabapentin 300 MG CAPSULE PO SCH ×2 (09:00→20:21)
[2021-12-27] MEDS: hydrOXYzine pamoate 25 MG CAPSULE PO SCH ×3 (09:00→20:21)
[2021-12-27] MEDS: Patient Taking Own Medication 1 EACH PO SCH (09:01)
[2021-12-27 09:32] LABS: Alanine Aminotransferase 54 Units/L (7-52); Albumin 3.3 g/dL (3.5-5.7); Albumin/Globulin Ratio 2.1 (1.1-2.2); Alkaline Phosphatase 60 Units/L (34-104); Aspartate Amino Transferase 29 Units/L (13-39); BUN/Creatinine Ratio 38 (6-26); Bilirubin,Total 0.3 mg/dL (0.3-1.0); Blood Urea Nitrogen 19 mg/dL (8-23); Calcium 7.7 mg/dL (8.6-10.3); Carbon Dioxide 39 mEq/L (23-29); Chloride 100 mEq/L (98-107); Globulin 1.6 g/dL (2.4-3.5); Glucose 129 mg/dL (70-105); Osmolality,Calculated 298 (280-300); Sodium 142 mEq/L (136-145); Total Protein 4.9 g/dL (6.4-8.9); eGFR For African Americans > 60 (> 60); eGFR For Non-African Americans > 60 (> 60)
[2021-12-27] MEDS: Tiotropium 10 INH DOSE IH SCH (10:27)
[2021-12-28] MEDS: Ipratropium/Albuterol Neb 3 ML IH SCH ×5 (03:48→21:19)
[2021-12-28 05:49] LABS: Basophils % 0.2 %; Hematocrit 28.7 % (35.3-44.9); Hemoglobin 8.8 g/dL (11.5-15.4); Immature Granulocytes % 4.6 % (0-4); Lymphocytes # 0.4 K/mcL (0.6-4.6); Lymphocytes % 8.5 %; Mean Corpuscular HGB Conc 30.7 g/dL (31.6-35.5); Mean Corpuscular Hemoglobin 28.2 pg (28.0-33.3); Mean Platelet Volume 9.9 fL (9.4-12.4); Monocytes # 0.2 K/mcL (0.0-1.3); Monocytes % 4.9 %; Neutrophils # 3.4 K/mcL (1.6-8.9); Nucleated Red Blood Cells 0.5 /100 WBC (0); Platelet Count 119 K/mcL (140-400); Red Blood Count 3.12 M/mcL (3.82-4.97); Red Cell Distribution Width 13.2 % (11.5-14.5); Segmented Neutrophils % 81.8 %; White Blood Count 4.1 K/mcL (4.3-11.1)
[2021-12-28] MEDS: MethylPREDNISolone 40 MG/ML VIAL IVP SCH ×4 (05:54→23:08)
[2021-12-28] MEDS: *HR* Heparin 5,000 UNIT/ML VIAL SQ SCH (05:54)
[2021-12-28 05:55] LABS: Prothrombin Time 10.6 Seconds (9.4-12.1)
[2021-12-28 06:10] LABS: Alanine Aminotransferase 55 Units/L (7-52); Albumin 3.3 g/dL (3.5-5.7); Albumin/Globulin Ratio 1.9 (1.1-2.2); Alkaline Phosphatase 60 Units/L (34-104); Aspartate Amino Transferase 22 Units/L (13-39); BUN/Creatinine Ratio 40 (6-26); Bilirubin,Total 0.3 mg/dL (0.3-1.0); Blood Urea Nitrogen 21 mg/dL (8-23); Carbon Dioxide 39 mEq/L (23-29); Chloride 99 mEq/L (98-107); Globulin 1.7 g/dL (2.4-3.5); Glucose 138 mg/dL (70-105); Osmolality,Calculated 299 (280-300); Sodium 142 mEq/L (136-145); eGFR For African Americans > 60 (> 60); eGFR For Non-African Americans > 60 (> 60)
[2021-12-28] MEDS: Budesonide/Formoterol 160/4.5 1 PUFF INH IH SCH ×2 (07:16→21:20)
[2021-12-28] MEDS: Tiotropium 10 INH DOSE IH SCH (07:17)
[2021-12-28] MEDS: Acetaminophen 325 MG TABLET PO PRN (09:29)
[2021-12-28] MEDS: Gabapentin 300 MG CAPSULE PO SCH ×2 (09:29→20:11)
[2021-12-28] MEDS: hydrOXYzine pamoate 25 MG CAPSULE PO SCH ×2 (09:29→20:10)
[2021-12-28] MEDS: Patient Taking Own Medication 1 EACH PO SCH (09:31)
[2021-12-28] MEDS ORDERED: Ketamine HCL *QUVA* 50mg (1mL) SYRINGE ONE (12:58)
[2021-12-28] MEDS ORDERED: *HR* FentaNYL (PF) 100 MCG/2 ML VIAL ONE (12:58)
[2021-12-28] MEDS ORDERED: Sugammadex Sodium 200 MG/2 ML VIAL IV ONE ×2 (12:59→16:07)
[2021-12-28] MEDS ORDERED: *HR* Succinylcholine 200 MG/10 ML VIAL IVP ONE (12:59)
[2021-12-28] MEDS ORDERED: *HR* Midazolam HCl 2 MG/2 ML VIAL ONE (12:59)
[2021-12-28] MEDS ORDERED: Lidocaine -MPF 2% 5 ML VIAL ONE (12:59)
[2021-12-28] MEDS ORDERED: *HR* Propofol 200 MG/20 ML VIAL IVP ONE (12:59)
[2021-12-28] MEDS ORDERED: Lidocaine -MPF 4% 5 ML AMPUL ONE (12:59)
[2021-12-28] MEDS ORDERED: Ondansetron 4 MG/2 ML VIAL ONE (12:59)
[2021-12-28] MEDS ORDERED: *HR* Rocuronium Bromide 50 MG/5 ML VIAL ONE (12:59)
[2021-12-28] MEDS ORDERED: *HR* Magnesium Sulfate 1 GM/2 ML VIAL ONE (13:00)
[2021-12-28] MEDS ORDERED: Acetaminophen IV 1,000 MG/100 ML BAG IVPB PRN (13:02)
[2021-12-28] MEDS ORDERED: Ondansetron 4 MG/2 ML VIAL IVP PRN ×2 (13:02→18:00)
[2021-12-28] MEDS ORDERED: *HR* Labetalol 20 MG/4 ML SYRINGE IVP PRN (13:02)
[2021-12-28] MEDS ORDERED: *HR* OxyCODONE Immed Rel 5 MG TABLET PO PRN ×2 (13:02→18:00)
[2021-12-28] MEDS ORDERED: flumazeniL 0.5 MG/5 ML VIAL IVP PRN (13:02)
[2021-12-28] MEDS ORDERED: *HR* FentaNYL (PF) 100 MCG/2 ML VIAL IVP PRN (13:02)
[2021-12-28] MEDS ORDERED: Racepinephrine Neb 0.5 ML VIAL IH PRN (13:02)
[2021-12-28] MEDS ORDERED: Ipratropium Neb 0.5 MG NEBULIZER IH PRN (13:02)
[2021-12-28] MEDS ORDERED: Albuterol 2.5 MG/3 ML NEBULIZER IH PRN (13:02)
[2021-12-28] MEDS ORDERED: CeFAZolin Syr 2,000MG/20 ML 2,000 MG/20 ML SYRINGE IVPB ONE (13:14)
[2021-12-28] MEDS ORDERED: *HR* Vasopressin 20 UNIT/ML VIAL ONE (13:14)
[2021-12-28] MEDS ORDERED: dexmedeTOMIDine in 0.9 % NaCL 80 MCG/20 ML MLS ONE (13:14)
[2021-12-28] MEDS ORDERED: Iopamidol - 300 50 ML VIAL ONE (13:40)
[2021-12-28] MEDS ORDERED: Ipratropium/Albuterol Neb 3 ML IH ONE (13:43)
[2021-12-28] MEDS ORDERED: Ketorolac 30 MG/ML VIAL IVP ONE (17:25)
[2021-12-28] MEDS ORDERED: Naloxone 0.4 MG/ML INJ IVP PRN (18:00)
[2021-12-28] MEDS ORDERED: Fluticasone Propionate Nasal 50 MCG/SPRAY BOTTLE NS PRN (18:00)
[2021-12-28] MEDS ORDERED: Ondansetron ODT 4 MG TAB.RAPDIS SL PRN (18:00)
[2021-12-28] MEDS: Ringers Solution, Lactated 1,000 ML IVC SCH (18:28)
[2021-12-28] MEDS: CeFAZolin 2 GM/120 ML BAG IVPB SCH (23:09)
[2021-12-29] MEDS: Ipratropium/Albuterol Neb 3 ML IH SCH ×6 (00:56→22:43)
[2021-12-29] MEDS: clonazePAM 1 MG TABLET PO PRN ×2 (05:11→17:01)
[2021-12-29] MEDS: MethylPREDNISolone 40 MG/ML VIAL IVP SCH ×4 (05:14→20:39)
[2021-12-29] MEDS: CeFAZolin 2 GM/120 ML BAG IVPB SCH (05:27)
[2021-12-29] MEDS: Budesonide/Formoterol 160/4.5 1 PUFF INH IH SCH ×2 (07:28→22:42)
[2021-12-29] MEDS: Tiotropium 10 INH DOSE IH SCH (07:28)
[2021-12-29 08:10] LABS: Hematocrit 30.5 % (35.3-44.9); Hemoglobin 9.5 g/dL (11.5-15.4); Immature Granulocytes % 2.8 % (0-4); Lymphocytes # 0.3 K/mcL (0.6-4.6); Lymphocytes % 5.2 %; Mean Corpuscular HGB Conc 31.1 g/dL (31.6-35.5); Mean Corpuscular Hemoglobin 28.6 pg (28.0-33.3); Mean Corpuscular Volume 91.9 fL (83.0-100.0); Mean Platelet Volume 9.2 fL (9.4-12.4); Monocytes # 0.3 K/mcL (0.0-1.3); Monocytes % 4.9 %; Platelet Count 117 K/mcL (140-400); Red Blood Count 3.32 M/mcL (3.82-4.97); Red Cell Distribution Width 13.2 % (11.5-14.5); Segmented Neutrophils % 87.1 %; White Blood Count 5.8 K/mcL (4.3-11.1)
[2021-12-29] MEDS: hydrOXYzine pamoate 25 MG CAPSULE PO SCH ×4 (09:13→20:39)
[2021-12-29] MEDS: Gabapentin 300 MG CAPSULE PO SCH ×2 (09:13→20:39)
[2021-12-29] MEDS: amLODIPine 5 MG TABLET PO SCH (09:14)
[2021-12-29] MEDS: Roflumilast [Daliresp] 500 MCG Tablet PO SCH (09:15)
[2021-12-29] MEDS: *HR* OxyCODONE Immed Rel 5 MG TABLET PO PRN (09:42)
[2021-12-29] MEDS: Acetaminophen 325 MG TABLET PO PRN (09:42)
[2021-12-29] MEDS: Ringers Solution, Lactated 1,000 ML IVC SCH (10:50)
[2021-12-30] MEDS: Acetaminophen 325 MG TABLET PO PRN ×2 (01:12→09:03)
[2021-12-30 02:08] LABS: Hematocrit 30.5 % (35.3-44.9); Hemoglobin 9.5 g/dL (11.5-15.4); Immature Granulocytes % 1.7 % (0-4); Lymphocytes # 0.3 K/mcL (0.6-4.6); Lymphocytes % 6.3 %; Mean Corpuscular HGB Conc 31.1 g/dL (31.6-35.5); Mean Corpuscular Hemoglobin 29.1 pg (28.0-33.3); Mean Corpuscular Volume 93.3 fL (83.0-100.0); Mean Platelet Volume 9.7 fL (9.4-12.4); Monocytes # 0.2 K/mcL (0.0-1.3); Monocytes % 3.3 %; Neutrophils # 4.3 K/mcL (1.6-8.9); Platelet Count 120 K/mcL (140-400); Red Blood Count 3.27 M/mcL (3.82-4.97); Red Cell Distribution Width 13.3 % (11.5-14.5); Segmented Neutrophils % 88.7 %; White Blood Count 4.8 K/mcL (4.3-11.1)
[2021-12-30] MEDS: *HR* OxyCODONE Immed Rel 5 MG TABLET PO PRN ×2 (03:53→19:50)
[2021-12-30] MEDS: Ipratropium/Albuterol Neb 3 ML IH SCH ×7 (04:31→23:52)
[2021-12-30] MEDS: MethylPREDNISolone 40 MG/ML VIAL IVP SCH ×2 (05:07→17:45)
[2021-12-30] MEDS: Budesonide/Formoterol 160/4.5 1 PUFF INH IH SCH ×2 (07:34→19:59)
[2021-12-30] MEDS: Tiotropium 10 INH DOSE IH SCH (07:35)
[2021-12-30] MEDS: hydrOXYzine pamoate 25 MG CAPSULE PO SCH ×3 (08:44→20:06)
[2021-12-30] MEDS: amLODIPine 5 MG TABLET PO SCH (08:44)
[2021-12-30] MEDS: clonazePAM 1 MG TABLET PO PRN ×2 (08:45→20:22)
[2021-12-30] MEDS: Gabapentin 300 MG CAPSULE PO SCH ×2 (08:45→20:06)
[2021-12-30] MEDS: Roflumilast [Daliresp] 500 MCG Tablet PO SCH (09:00)
[2021-12-31] MEDS: *HR* OxyCODONE Immed Rel 5 MG TABLET PO PRN (01:04)
[2021-12-31] MEDS: Ipratropium/Albuterol Neb 3 ML IH SCH ×4 (04:04→15:33)
[2021-12-31] MEDS: MethylPREDNISolone 40 MG/ML VIAL IVP SCH (06:25)
[2021-12-31 06:35] VITALS: BP 153/114; PULSE 91; TEMP 98.9
[2021-12-31] MEDS: Budesonide/Formoterol 160/4.5 1 PUFF INH IH SCH (07:43)
[2021-12-31 07:44] VITALS: O2SAT 100
[2021-12-31] MEDS: Tiotropium 10 INH DOSE IH SCH (07:44)
[2021-12-31] MEDS: amLODIPine 5 MG TABLET PO SCH (08:31)
[2021-12-31] MEDS: hydrOXYzine pamoate 25 MG CAPSULE PO SCH (08:31)
[2021-12-31] MEDS: Gabapentin 300 MG CAPSULE PO SCH (08:31)
[2021-12-31] MEDS: clonazePAM 1 MG TABLET PO PRN (08:37)
== END 2021-12-31 12:35 | disposition home health service (06) | DRG 167 ==
LOC: SDCAOSI 06:22 → 3NENU 06:22 → SUATTDRO 10:11 → 4WAOSI 12-28 15:20
PROVIDERS: ADMIT Family Medicine; ATTEND Internal Medicine

== ENCOUNTER 2022-01-11 13:48 | Observation (INO) ==
[2022-01-11 14:57] LABS: Basophils % 0.4 %; Eosinophils % 0.2 %; Hematocrit 35.4 % (35.3-44.9); Hemoglobin 11.4 g/dL (11.5-15.4); Immature Granulocytes % 0.6 % (0-4); Lymphocytes # 0.6 K/mcL (0.6-4.6); Lymphocytes % 13.4 %; Mean Corpuscular HGB Conc 32.2 g/dL (31.6-35.5); Mean Corpuscular Hemoglobin 28.6 pg (28.0-33.3); Mean Corpuscular Volume 88.9 fL (83.0-100.0); Mean Platelet Volume 8.8 fL (9.4-12.4); Monocytes # 0.3 K/mcL (0.0-1.3); Monocytes % 6.9 %; Neutrophils # 3.6 K/mcL (1.6-8.9); Platelet Count 144 K/mcL (140-400); Red Blood Count 3.98 M/mcL (3.82-4.97); Red Cell Distribution Width 14.8 % (11.5-14.5); Segmented Neutrophils % 78.5 %; White Blood Count 4.6 K/mcL (4.3-11.1)
[2022-01-11 16:00] LABS: BUN/Creatinine Ratio 25 (6-26); Blood Urea Nitrogen 13 mg/dL (8-23); Calcium 9.2 mg/dL (8.6-10.3); Carbon Dioxide > 45 mEq/L (23-29); Chloride 85 mEq/L (98-107); Glucose 108 mg/dL (70-105); Osmolality,Calculated 285 (280-300); Potassium 3.7 mEq/L (3.5-5.1); Sodium 137 mEq/L (136-145); Troponin I < 0.03 ng/mL (< 0.04); eGFR For African Americans > 60 (> 60); eGFR For Non-African Americans > 60 (> 60)
[2022-01-11] MEDS ORDERED: Naloxone 0.4 MG/ML INJ IVP ONE (17:53)
[2022-01-11 18:34] LABS: ABG Base Excess 20 mEq/L (-2 to 3); ABG HCO3 50 mEq/L (21-27); ABG Oxygen Saturation 96 % (95-98); ABG PCO2 92 mmHg (35-45); ABG PH 7.34 pH Units (7.32-7.45); ABG PO2 94 mmHg (85-104); ABG TCO2 > 50 mEq/L (20-26)
[2022-01-11] MEDS ORDERED: methylPREDNISolone 125 MG/2 ML VIAL IVP ONE (18:50)
[2022-01-11] MEDS ORDERED: Naloxone 0.4 MG/ML INJ IVP PRN (20:03)
[2022-01-11] MEDS: Ipratropium/Albuterol Neb 3 ML IH SCH (20:45)
[2022-01-11 20:52] LABS: ABG Base Excess 18 mEq/L (-2 to 3); ABG HCO3 47 mEq/L (21-27); ABG Oxygen Saturation 99 % (95-98); ABG PCO2 80 mmHg (35-45); ABG PH 7.37 pH Units (7.32-7.45); ABG PO2 127 mmHg (85-104); ABG TCO2 49 mEq/L (20-26); Blood Gas Modality BiLevel
[2022-01-11 21:19] LABS: Acetaminophen < 10 mcg/mL (10-20); Ethanol < 10 mg/dL (Less than 10); Salicylate < 2.5 mg/dL (15.0-30.0)
[2022-01-11] MEDS: Azithromycin 500 MG in 0.9 % Sodium Chloride 250 ML IVPB SCH (23:40)
[2022-01-12] MEDS ORDERED: *HR* LORazepam 2 MG/ML VIAL IVP ONE ×3 (00:10→11:06)
[2022-01-12 00:14] LABS: Amphetamine Screen,Urine Negative ng/mL (Cutoff=1000); Barbiturate Screen,Urine Negative ng/mL (Cutoff=200); Benzodiazepines Screen,Urine Positive ng/mL (Cutoff=200); Cannabinoid Screen,Urine Negative ng/mL (Cutoff = 50); Cocaine Screen,Urine Negative ng/mL (Cutoff= 300); Opiate Screen,Urine Positive ng/mL (Cutoff=300); Phencyclidine Screen,Urine Negative ng/mL (Cutoff=25)
[2022-01-12 00:17] LABS: Bacteria,Urine Many per hpf (None-Few); Bilirubin,Urine Negative (Negative); Blood,Urine Trace (Negative); Clarity,Urine Turbid (Clear); Color,Urine Yellow (Yellow); Glucose,Urine (UA) Normal (Normal); Ketones,Urine 60 mg/dL (Negative); Leukocyte Esterase,Urine Large (Negative); Mucus,Urine Few per lpf (None-Few); Nitrite,Urine Positive (Negative); PH,Urine 8.5 pH Units (5.0-8.0); Protein,Urine 70 mg/dL (Neg-Trace); Specific Gravity,Urine 1.017 (1.010-1.025); Squamous Epithelial Cell,Urine Moderate per hpf (None-Few); Urobilinogen,Urine Normal (Normal); WBC,Urine TNTC per hpf (0-3)
[2022-01-12] MEDS: Ipratropium/Albuterol Neb 3 ML IH SCH ×6 (00:31→20:56)
[2022-01-12] MEDS: *HR* Heparin 5,000 UNIT/ML VIAL SQ SCH ×3 (05:04→21:40)
[2022-01-12 05:21] LABS: Hematocrit 32.2 % (35.3-44.9); Hemoglobin 10.6 g/dL (11.5-15.4); Immature Granulocytes % 0.7 % (0-4); Lymphocytes # 0.4 K/mcL (0.6-4.6); Lymphocytes % 8.6 %; Mean Corpuscular HGB Conc 32.9 g/dL (31.6-35.5); Mean Corpuscular Hemoglobin 28.5 pg (28.0-33.3); Mean Corpuscular Volume 86.6 fL (83.0-100.0); Mean Platelet Volume 9.4 fL (9.4-12.4); Monocytes # 0.1 K/mcL (0.0-1.3); Monocytes % 1.1 %; Neutrophils # 4.1 K/mcL (1.6-8.9); Platelet Count 144 K/mcL (140-400); Red Blood Count 3.72 M/mcL (3.82-4.97); Red Cell Distribution Width 14.4 % (11.5-14.5); Segmented Neutrophils % 89.6 %; White Blood Count 4.5 K/mcL (4.3-11.1)
[2022-01-12 05:30] LABS: Prothrombin Time 11.4 Seconds (9.4-12.1)
[2022-01-12 06:00] LABS: Alanine Aminotransferase 14 Units/L (7-52); Albumin 3.9 g/dL (3.5-5.7); Albumin/Globulin Ratio 1.9 (1.1-2.2); Alkaline Phosphatase 84 Units/L (34-104); Aspartate Amino Transferase 15 Units/L (13-39); BUN/Creatinine Ratio 29 (6-26); Bilirubin,Total 0.7 mg/dL (0.3-1.0); Blood Urea Nitrogen 16 mg/dL (8-23); Calcium 8.9 mg/dL (8.6-10.3); Carbon Dioxide 44 mEq/L (23-29); Chloride 87 mEq/L (98-107); Globulin 2.1 g/dL (2.4-3.5); Glucose 113 mg/dL (70-105); Osmolality,Calculated 286 (280-300); Phosphorous 2.8 mg/dL (2.7-4.5); Potassium 4.6 mEq/L (3.5-5.1); Sodium 137 mEq/L (136-145); eGFR For African Americans > 60 (> 60); eGFR For Non-African Americans > 60 (> 60)
[2022-01-12 08:43] LABS: VBG HCO3 39 mEq/L (21-27); VBG PCO2 63 mmHg (41-51); VBG PO2 27 mmHg (25-50)
[2022-01-12] MEDS: methylPREDNISolone 125 MG/2 ML VIAL IVP SCH ×3 (09:45→23:59)
[2022-01-12] MEDS ORDERED: *HR* LORazepam 2 MG/ML VIAL ONE (11:00)
[2022-01-12] MEDS: clonazePAM 1 MG TABLET PO PRN ×2 (11:51→15:24)
[2022-01-12] MEDS: Gabapentin 100 MG CAPSULE PO SCH (21:39)
[2022-01-12] MEDS: Melatonin 3 MG TABLET PO PRN (21:39)
[2022-01-12] MEDS: Azithromycin 500 MG in 0.9 % Sodium Chloride 250 ML IVPB SCH (21:50)
[2022-01-13] MEDS: Ipratropium/Albuterol Neb 3 ML IH SCH ×6 (00:12→20:28)
[2022-01-13] MEDS: *HR* Heparin 5,000 UNIT/ML VIAL SQ SCH ×3 (05:46→21:19)
[2022-01-13] MEDS: amLODIPine 5 MG TABLET PO SCH (10:16)
[2022-01-13] MEDS: Gabapentin 100 MG CAPSULE PO SCH ×3 (10:16→21:19)
[2022-01-13] MEDS: methylPREDNISolone 125 MG/2 ML VIAL IVP SCH ×2 (10:16→18:46)
[2022-01-13 14:10] LABS: Basophils % 0.2 %; Hematocrit 33.5 % (35.3-44.9); Hemoglobin 11.2 g/dL (11.5-15.4); Immature Granulocytes % 0.8 % (0-4); Lymphocytes # 0.3 K/mcL (0.6-4.6); Lymphocytes % 4.1 %; Mean Corpuscular HGB Conc 33.4 g/dL (31.6-35.5); Mean Corpuscular Hemoglobin 28.7 pg (28.0-33.3); Mean Corpuscular Volume 85.9 fL (83.0-100.0); Mean Platelet Volume 9.4 fL (9.4-12.4); Monocytes # 0.2 K/mcL (0.0-1.3); Monocytes % 2.4 %; Neutrophils # 5.7 K/mcL (1.6-8.9); Platelet Count 179 K/mcL (140-400); Red Cell Distribution Width 14.2 % (11.5-14.5); Segmented Neutrophils % 92.5 %; White Blood Count 6.1 K/mcL (4.3-11.1)
[2022-01-13 14:24] LABS: BUN/Creatinine Ratio 37 (6-26); Blood Urea Nitrogen 23 mg/dL (8-23); Calcium 8.7 mg/dL (8.6-10.3); Carbon Dioxide 39 mEq/L (23-29); Chloride 89 mEq/L (98-107); Glucose 174 mg/dL (70-105); Magnesium 2.1 mg/dL (1.6-2.6); Osmolality,Calculated 290 (280-300); Potassium 3.7 mEq/L (3.5-5.1); Sodium 136 mEq/L (136-145); eGFR For African Americans > 60 (> 60); eGFR For Non-African Americans > 60 (> 60)
[2022-01-13] MEDS: Azithromycin 500 MG in 0.9 % Sodium Chloride 250 ML IVPB SCH (21:19)
[2022-01-14] MEDS: methylPREDNISolone 125 MG/2 ML VIAL IVP SCH ×3 (00:03→18:12)
[2022-01-14] MEDS: Ipratropium/Albuterol Neb 3 ML IH SCH ×7 (00:25→23:28)
[2022-01-14 05:37] LABS: BUN/Creatinine Ratio 37 (6-26); Blood Urea Nitrogen 21 mg/dL (8-23); Calcium 8.1 mg/dL (8.6-10.3); Carbon Dioxide 41 mEq/L (23-29); Chloride 91 mEq/L (98-107); Glucose 121 mg/dL (70-105); Osmolality,Calculated 288 (280-300); Potassium 3.7 mEq/L (3.5-5.1); Sodium 137 mEq/L (136-145); eGFR For African Americans > 60 (> 60); eGFR For Non-African Americans > 60 (> 60)
[2022-01-14] MEDS: *HR* Heparin 5,000 UNIT/ML VIAL SQ SCH ×3 (05:48→20:22)
[2022-01-14] MEDS: Budesonide/Formoterol 160/4.5 1 PUFF INH IH SCH ×2 (07:47→20:45)
[2022-01-14] MEDS: Tiotropium 10 INH DOSE IH SCH (07:47)
[2022-01-14] MEDS: amLODIPine 5 MG TABLET PO SCH (09:36)
[2022-01-14] MEDS: Cholecalciferol (D-3) 1,000 UNIT (25MCG) TABLET PO SCH (09:36)
[2022-01-14] MEDS: Gabapentin 300 MG CAPSULE PO SCH ×2 (09:36→20:21)
[2022-01-14] MEDS: Acetaminophen 325 MG TABLET PO PRN ×2 (14:36→20:21)
[2022-01-14] MEDS: Azithromycin 250 MG TABLET PO SCH (20:22)
[2022-01-14] MEDS: clonazePAM 1 MG TABLET PO PRN (20:25)
[2022-01-15] MEDS: methylPREDNISolone 125 MG/2 ML VIAL IVP SCH ×3 (00:17→16:13)
[2022-01-15 03:41] LABS: BUN/Creatinine Ratio 31 (6-26); Blood Urea Nitrogen 17 mg/dL (8-23); Calcium 8.3 mg/dL (8.6-10.3); Carbon Dioxide 37 mEq/L (23-29); Chloride 91 mEq/L (98-107); Glucose 166 mg/dL (70-105); Osmolality,Calculated 281 (280-300); Potassium 3.9 mEq/L (3.5-5.1); Sodium 133 mEq/L (136-145); eGFR For African Americans > 60 (> 60); eGFR For Non-African Americans > 60 (> 60)
[2022-01-15] MEDS: Ipratropium/Albuterol Neb 3 ML IH SCH ×6 (03:46→23:22)
[2022-01-15] MEDS: *HR* Heparin 5,000 UNIT/ML VIAL SQ SCH ×3 (06:12→20:52)
[2022-01-15] MEDS: Budesonide/Formoterol 160/4.5 1 PUFF INH IH SCH ×2 (08:01→20:19)
[2022-01-15] MEDS: Tiotropium 10 INH DOSE IH SCH (08:03)
[2022-01-15] MEDS: Cholecalciferol (D-3) 1,000 UNIT (25MCG) TABLET PO SCH (08:36)
[2022-01-15] MEDS: amLODIPine 5 MG TABLET PO SCH (08:37)
[2022-01-15] MEDS: Gabapentin 300 MG CAPSULE PO SCH ×2 (08:37→20:51)
[2022-01-15] MEDS: clonazePAM 1 MG TABLET PO PRN ×2 (11:37→20:51)
[2022-01-15] MEDS: Acetaminophen 325 MG TABLET PO PRN (16:06)
[2022-01-15] MEDS: Azithromycin 250 MG TABLET PO SCH (20:51)
[2022-01-16] MEDS: methylPREDNISolone 125 MG/2 ML VIAL IVP SCH ×3 (01:38→16:00)
[2022-01-16 03:07] LABS: BUN/Creatinine Ratio 29 (6-26); Blood Urea Nitrogen 17 mg/dL (8-23); Calcium 8.8 mg/dL (8.6-10.3); Carbon Dioxide 36 mEq/L (23-29); Chloride 91 mEq/L (98-107); Glucose 154 mg/dL (70-105); Osmolality,Calculated 283 (280-300); Potassium 3.6 mEq/L (3.5-5.1); Sodium 134 mEq/L (136-145)
[2022-01-16] MEDS: Ipratropium/Albuterol Neb 3 ML IH SCH ×5 (03:39→20:19)
[2022-01-16] MEDS: *HR* Heparin 5,000 UNIT/ML VIAL SQ SCH ×3 (05:56→20:14)
[2022-01-16] MEDS: amLODIPine 5 MG TABLET PO SCH (07:30)
[2022-01-16] MEDS: Cholecalciferol (D-3) 1,000 UNIT (25MCG) TABLET PO SCH (07:30)
[2022-01-16] MEDS: Gabapentin 300 MG CAPSULE PO SCH ×2 (07:30→20:14)
[2022-01-16] MEDS: Budesonide/Formoterol 160/4.5 1 PUFF INH IH SCH ×2 (07:42→20:19)
[2022-01-16] MEDS: Tiotropium 10 INH DOSE IH SCH (07:45)
[2022-01-16] MEDS: Azithromycin 250 MG TABLET PO SCH (20:14)
[2022-01-16] MEDS: Melatonin 3 MG TABLET PO PRN (20:14)
[2022-01-17] MEDS: Ipratropium/Albuterol Neb 3 ML IH SCH ×6 (00:03→20:08)
[2022-01-17] MEDS: methylPREDNISolone 125 MG/2 ML VIAL IVP SCH ×3 (00:53→16:48)
[2022-01-17] MEDS: *HR* Heparin 5,000 UNIT/ML VIAL SQ SCH ×2 (06:00→14:12)
[2022-01-17] MEDS: Budesonide/Formoterol 160/4.5 1 PUFF INH IH SCH ×2 (07:33→20:08)
[2022-01-17] MEDS: Tiotropium 10 INH DOSE IH SCH (07:54)
[2022-01-17 08:05] VITALS: BP 127/72; PULSE 76; TEMP 98.1
[2022-01-17] MEDS: amLODIPine 5 MG TABLET PO SCH (10:21)
[2022-01-17] MEDS: Cholecalciferol (D-3) 1,000 UNIT (25MCG) TABLET PO SCH (10:21)
[2022-01-17] MEDS: Gabapentin 300 MG CAPSULE PO SCH (10:21)
[2022-01-17] MEDS: clonazePAM 1 MG TABLET PO PRN ×2 (10:24→18:41)
[2022-01-17 15:27] LABS: Adenovirus Not Detected (Not Detect); Bordetella Pertussis Not Detected (Not Detect); Chlamydophila pneumoniae Not Detected (Not Detect); Coronavirus 229E Not Detected (Not Detect); Coronavirus HKU1 Not Detected (Not Detect); Coronavirus NL63 Not Detected (Not Detect); Coronavirus OC43 Not Detected (Not Detect); Human Metapneumovirus Not Detected (Not Detect); Human Rhinovirus/Enterovirus Not Detected (Not Detect); Influenza A Subtype 2009 H1 Not Detected (Not Detect); Influenza B Not Detected (Not Detect); Mycoplasma pneumoniae Not Detected (Not Detect); Parainfluenza Virus 1 Not Detected (Not Detect); Parainfluenza Virus 2 Not Detected (Not Detect); Parainfluenza Virus 3 Not Detected (Not Detect); Parainfluenza Virus 4 Not Detected (Not Detect); Respiratory Syncytial Virus Not Detected (Not Detect); SARS-CoV-2 Not Detected (Not Detect)
[2022-01-17 16:16] VITALS: O2SAT 95
== END 2022-01-17 20:30 | disposition home health service (06) ==
LOC: 3NENU 13:48 → EMEROOARM 13:48 → SUATTDRO 19:14 → 3NENU 20:02
PROVIDERS: ADMIT Internal Medicine; ATTEND Hospitalist